=== PATIENT | female | born 1955 | race Caucasian/White ===

== ENCOUNTER 2017-07-28 06:24 | Inpatient (IN) | payer BC, OTHER ==
[2017-06-22 15:08] VITALS: BMI 41.0
--- NOTE | 2017-06-22 15:35 | PAT Medication Instructions ---
Service Date Jun 22, 2017. Current Home Medication List Albuterol Hfa (Ventolin Hfa), 2-4 PUFFS INH UD PRN for asthma Celecoxib (CeleBREX), 200 MG PO QAM Fluticasone Prop/Salmeterol (Advair Diskus 250/50 60 Dose), 1 PUFF INH UD PRN for asthma Fluticasone Propionate (Nasal) (Flonase Allergy Relief), 1 DOSE MATT UD PRN for allergies Hctz/Losartan (Hyzaar 12.5MG/50MG), 1 TAB PO BID Ibuprofen (Motrin), 600 MG PO qday PRN for Pain Medication Instructions For Your Scheduled Surgery - Hold the following medications 24 hours prior to surgery: Hctz/Losartan (Hyzaar 12.5MG/50MG), 1 TAB PO BID - Hold the following medications the morning of surgery: Ibuprofen (Motrin), 600 MG PO qday PRN for Pain (otherwise okay to continue per surgeon) Celecoxib (CeleBREX), 200 MG PO QAM (otherwise okay to continue per surgeon) - Take the following medications the morning of surgery: Albuterol Hfa (Ventolin Hfa), 2-4 PUFFS INH UD PRN for asthma (use if needed; BRING TO HOSPITAL) Fluticasone Propionate (Nasal) (Flonase Allergy Relief), 1 DOSE MATT UD PRN for allergies Fluticasone Prop/Salmeterol (Advair Diskus 250/50 60 Dose), 1 PUFF INH UD PRN for asthma - Take the following medications as scheduled the night before surgery: Albuterol Hfa (Ventolin Hfa), 2-4 PUFFS INH UD PRN for asthma Fluticasone Propionate (Nasal) (Flonase Allergy Relief), 1 DOSE MATT UD PRN for allergies Fluticasone Prop/Salmeterol (Advair Diskus 250/50 60 Dose), 1 PUFF INH UD PRN for asthma Nothing to eat or drink after midnight If you have any questions please call us at [phone] or [phone] or [phone]
[2017-06-22 16:31] LABS: BASO % 0.6 %; BASO ABS # 0.04 K/uL (0-0.2); COMPLETE YES; EOS % 3.8 %; HEMATOCRIT 43.2 % (37-47); IG% 0.5 %; LYMPH % 18.8 %; LYMPH ABS # 1.24 K/uL (1.2-3.4); MEAN CELL VOLUME 95.6 fL (80-100); MEAN CORPUSCULAR HEMOGLOBIN 32.5 pg (25-34); MEAN PLATELET VOLUME 11.3 fL (7.4-10.4); NEUT % 61.3 %; PLATELET COUNT 223 K/uL (130-400); RED BLOOD COUNT 4.52 M/uL (4.2-5.4); WHITE BLOOD COUNT 6.61 K/uL (4.8-10.8)
--- NOTE | 2017-06-22 16:37 | DIAGNOSTIC IMAGING REPORT ---
CHEST PREADMISSION(PA/LAT) CLINICAL HISTORY: PAT preoperative evaluation COMPARISON STUDY: No previous studies for comparison. FINDINGS: The bones soft tissues and hemidiaphragms are normal. The cardiomediastinal silhouette is normal. The lungs are clear. The pulmonary vasculature is normal. IMPRESSION: Negative chest. The above report was generated using voice recognition software. It may contain grammatical, syntax or spelling errors. Electronically signed by: Nikita Brown M.D. 06/22/2017 4:35 PM Dictated Date/Time: 06/22/2017 4:35 PM
[2017-06-22 16:38] LABS: URINE APPEARANCE CLEAR (CLEAR); URINE BILIRUBIN NEG (NEG); URINE COLOR DK YELLOW; URINE EPITHELIAL CELL AUTO >30 /lpf (0-5); URINE NITRITE NEG (NEG); URINE PH 6.5 (4.5-7.5); URINE SPECIFIC GRAVITY 1.021 (1.000-1.030); UROBILINOGEN NEG (NEG); ZZUR CULT IF INDIC CLEAN CATCH YES
[2017-06-22 16:43] LABS: PARTIAL THROMBOPLASTIN RATIO 1.1; PROTHROMBIN TIME (PATIENT) 10.5 SECONDS (9.0-12.0)
[2017-06-22 16:45] LABS: BUN/CREATININE RATIO 13.9 (10-20); CALCIUM 9.4 mg/dl (8.5-10.1); CREATININE 1.2 mg/dl (0.60-1.20); POTASSIUM 3.5 mmol/L (3.5-5.1)
[2017-06-22 16:48] LABS: MANUAL MICROSCOPIC REQUIRED? NO; REVIEW REQ? NO
[2017-06-23 07:51] LABS: ESTIMATED AVERAGE GLUCOSE 105 mg/dl; HA1C FLAG Normal (Normal)
--- NOTE | 2017-07-27 18:52 | HISTORY & PHYSICAL EXAMINATION ---
DATE OF ADMISSION: 07/28/2017 CHIEF COMPLAINT: Chronic right knee pain. HISTORY OF PRESENT ILLNESS: This is a 62-year-old female patient of Dr. Avila'rashid complaining of chronic right knee pain, longstanding, now progressively getting worse. The patient has been diagnosed with end-stage osteoarthritis per clinical and radiographic exams. The patient has failed conservative treatment including intraarticular injections and anti-inflammatories. The patient has increased pain with weightbearing activities and her pain does interfere with her activities of daily living. PAST MEDICAL HISTORY: Hypertension, asthma, osteoarthritis, obesity. SOCIAL HISTORY: Nonsmoker, nondrinker. PAST SURGICAL HISTORY: Hysterectomy, gallbladder, tonsillectomy and stomach surgery. FAMILY HISTORY: Noncontributory. REVIEW OF SYSTEMS: Chronic right knee pain, otherwise denies any shortness of breath, chest pain, nausea, vomiting or any other joint complaints. MEDICATIONS: Include: 1. Celebrex 200 mg daily. 2. Ventolin HFA 90 mcg 2 puffs every 4-6 hours p.r.n. 3. Advair Diskus 250/50 one puff b.i.d. 4. Flonase allergy 50 mcg actuation 2 sprays in each nostril daily. 5. Hyzaar 50/12.5 daily. ALLERGIES: INCLUDE NAPROXEN, AMLODIPINE, AND ADHESIVE TAPES. PHYSICAL EXAMINATION: GENERAL: Well-developed, well-nourished 62-year-old female in no acute distress. She is alert and oriented x3 and pleasant. HEENT: Normocephalic, atraumatic. Extraocular motions are intact. Pupils are equal and reactive to light. HEART: Regular rate and rhythm, no murmurs appreciated. LUNGS: Clear. ABDOMEN: Soft and nontender, bowel sounds are present. EXTREMITIES: Right knee reveals crepitation with passive range of motion. Range of motion of 0-130 with a neutral alignment. She has a mild effusion. Her ligaments are stable. She has 5/5 strength. NEUROLOGIC: Neurovascularly, she is intact in her right lower extremity. DIAGNOSES: Right knee end-stage osteoarthritis, hypertension, asthma, osteoarthritis and obesity. PLAN: The patient was advised of her diagnoses. Indications, risks, benefits, and postop course have all been reviewed. The patient wishes to proceed with a right total knee arthroplasty. Necessary consent forms, preoperative testing and clearances will be obtained.
[~2017-07-28] VITALS: Ht 170.2 cm; Wt 120.7 kg
[2017-07-28] VITALS (10 sets, daily range): BP systolic 129–157; BP diastolic 82–109; PULSE 67–90; TEMP 36.5–36.9; O2SAT 93–98; Ht 170.2 cm; Wt 120.7 kg
[~2017-07-28 06:24] MED LIST: ACETAMINOPHEN 500 MG TAB PO SCH; ADVIN25/60 INH; CEFAZOLIN 3000 MG/65 ML D5W 65 ML IV SCH; CLB/200 PO; CeleBREX 200 MG CAP PO SCH; DEXAMETHASONE 4 MG TAB PO SCH; FAMOTIDINE 20 MG TAB PO SCH; FLUT0.15 NAE; GABAPENTIN 300 MG CAP PO SCH; HYZ/50125 PO; IBUP-1450 PO; LACTATED RINGER'S 1000ML 1,000 ML IV SCH; LACTATED RINGER'S 1000ML 500 ML IV ONE; METOCLOPRAMIDE HCL 10 MG TAB PO SCH; ROPIVACAINE 5MG/ML 30 ML 150 MG, BUPIVACAINE/EPINEPHR 0.5% MPF 30 ML, KETOROLAC TROMETH... INFIL SCH; VNTHFA/IN INH
[2017-07-28] MEDS ORDERED: ROPIVACAINE 0.5% 5 MG/ML 30 ML VIAL ONE (06:32)
[2017-07-28] MEDS ORDERED: BUPIVACAINE 0.5 % 5 MG/1 ML PF 10ML VIAL ONE (06:32)
[2017-07-28] MEDS ORDERED: MIDAZOLAM HCL 1 MG/ML 2ML VIAL ONE ×2 (06:55→10:15)
[2017-07-28] MEDS ORDERED: FENTANYL CITRATE INJ 50 MCG/1 ML 2 ML VIAL ONE (06:55)
[2017-07-28] MEDS ORDERED: ORTHO JOINT ANESTHETIC ONE (07:00)
[2017-07-28] MEDS ORDERED: BACITRACIN 50000 UNIT VIAL ONE (07:00)
[2017-07-28] MEDS ORDERED: POVIDONE-IODINE OP SOLN 30 ML BTL ONE (07:00)
[2017-07-28] MEDS ORDERED: OXYC-57 PO (07:03)
--- NOTE | 2017-07-28 07:19 | History & Physical Bridge Note ---
H&P Re-Evaluation Bridge Note: I have examined the patient, reviewed the History & Physical and in the interval since the performance of the History & Physical I have noted the following changes of clinical significance: No changes noted
[2017-07-28] MEDS: TRANEXAMIC ACID INJ 1,000 MG in SODIUM CHLORIDE 0.9% 100ML 100 ML IV SCH ×2 (09:07→12:46)
[2017-07-28] MEDS ORDERED: PROPOFOL IV EMULSION 10 MG/ML 20 ML VIAL IV ONE (09:35)
[2017-07-28] MEDS ORDERED: HYDROmorphone INJ 2 MG/ML SYR/VIAL IV PRN (10:00)
[2017-07-28] MEDS ORDERED: PHENYLEPHRINE 100MCG/ML 5ML SYR IV PRN (10:00)
[2017-07-28] MEDS ORDERED: ATROPINE SULFATE 0.1 MG/ML 5ML SYR IV PRN (10:00)
[2017-07-28] MEDS ORDERED: EpHEDrine SULFATE INJ 50 MG/ML AMP IV PRN (10:00)
[2017-07-28] MEDS ORDERED: ONDANSETRON INJ 2 MG/ML 2 ML VIAL IV PRN (10:00)
--- NOTE | 2017-07-28 11:09 | [facility] Post Operative Brief Note ---
Immediate Operative Summary Operative Date Jul 28, 2017. Pre-Operative Diagnosis Right Knee End Stage Osteoarthritis Post-Operative Diagnosis Right Knee End Stage Osteoarthritis Procedure(s) Performed Right Total Knee Arthroplasty Surgeon Dr. Gabe Avila Transitions Manager Rn Surgeon(s) Marshall Betancourt PA-C Estimated Blood Loss 5ML Findings grade 4 medial and patellofemoral Specimens Permanent: A. Right Knee Bone and Tissue Drains 2 hemovac Anesthesia spinal orthomix regional block Complication(s) None Disposition Recovery Room / PACU
[2017-07-28] MEDS ORDERED: MoRPHine SULFATE 4 MG/ML 1 ML CARP\\VIAL IV PRN (11:30)
[2017-07-28] MEDS ORDERED: MoRPHine SULFATE 2 MG/ML CARP IV PRN (11:30)
[2017-07-28] MEDS ORDERED: MAGNESIUM HYDROXIDE SUSP 30 ML UDC PO PRN (11:30)
[2017-07-28] MEDS ORDERED: BISACODYL 10 MG SUPP PR PRN (11:30)
[2017-07-28] MEDS ORDERED: ALBUTEROL HFA 8 GM INHALER INH PRN (11:30)
[2017-07-28] MEDS ORDERED: FLUTICASONE PROPIONATE NA SPR 16 GM BTL NAE PRN (11:30)
[2017-07-28] MEDS ORDERED: FLUTICASONE/SALMETEROL 250/50 (ADVAIR) 14 PUFF/1 INHALER INH PRN (11:30)
[2017-07-28] MEDS ORDERED: ALUMINUM/MAGNESIUM/SIMETH (MAALOX MAX) 30 ML UDC PO PRN (11:30)
--- NOTE | 2017-07-28 11:58 | DIAGNOSTIC IMAGING REPORT ---
RIGHT KNEE 1 OR 2 VIEWS ROUTINE CLINICAL HISTORY: 62 years-old Female presenting with postop right knee replacement. TECHNIQUE: Frontal and lateral views of the right knee were obtained. COMPARISON: None. FINDINGS: Postsurgical changes of total right knee replacement with patellar resurfacing. Expected soft tissue emphysema. Overlying skin richard and a surgical drain in place. No acute fracture. No hardware complication. No malalignment. IMPRESSION: Expected postsurgical changes status post total right knee arthroplasty with patellar resurfacing. Electronically signed by: Gumaro Patel M.D. 07/28/2017 11:56 AM Dictated Date/Time: 07/28/2017 11:56 AM
--- NOTE | 2017-07-28 13:17 | Anesthesiology Progress Note ---
Anesthesia Post Op Note Date & Time Jul 28, 2017 at 13:17 Vital Signs Pain Intensity: 0 Vital Signs Past 12 Hours Date Time Temp Pulse Resp B/P (MAP) Pulse Ox O2 Delivery O2 Flow Rate FiO2 07/28/17 12:44 150/103 (119) 07/28/17 12:38 70 20 157/109 (125) 98 Nasal Cannula 2.0 07/28/17 11:46 66 14 131/90 96 07/28/17 11:46 67 14 07/28/17 11:45 68 14 131/90 97 Nasal Cannula 2 07/28/17 11:41 67 13 95 07/28/17 11:41 67 13 07/28/17 11:40 141/85 07/28/17 11:40 36.5 71 12 123/72 95 Nasal Cannula 2 07/28/17 11:36 70 14 92 07/28/17 11:36 70 14 07/28/17 11:35 68 13 142/86 93 07/28/17 11:35 68 13 07/28/17 11:35 68 13 142/86 93 07/28/17 11:35 68 13 07/28/17 11:30 71 13 07/28/17 11:30 71 13 132/84 95 07/28/17 11:30 71 13 07/28/17 11:30 71 13 132/84 95 07/28/17 11:27 123/77 07/28/17 11:27 123/77 07/28/17 11:25 73 12 123/72 99 Oxymask 10 07/28/17 11:25 72 14 96 07/28/17 11:25 72 14 07/28/17 11:25 72 14 07/28/17 11:25 72 14 96 07/28/17 11:20 72 14 98 07/28/17 11:20 71 14 07/28/17 11:20 72 14 98 07/28/17 11:20 71 14 07/28/17 11:16 117/72 07/28/17 11:16 117/72 07/28/17 11:15 63 18 98 07/28/17 11:15 70 18 07/28/17 11:15 63 18 98 07/28/17 11:15 36.8 71 16 117/72 99 Oxymask 10 07/28/17 11:15 70 18 07/28/17 06:40 36.9 90 20 131/102 97 Room Air 133/102 Notes Mental Status: alert / awake / arousable, participated in evaluation Pt Amnestic to Procedure: Yes Nausea / Vomiting: adequately controlled Pain: adequately controlled Airway Patency, RR, SpO2: stable & adequate BP & HR: stable & adequate Hydration State: stable & adequate Anesthetic Complications: no major complications apparent
[2017-07-28] MEDS: D5W AND 1/2NSS + 20MEQ KCL 1,000 ML IV SCH ×2 (13:39→22:22)
--- NOTE | 2017-07-28 13:44 | Medical Consult ---
Consultation Date of Consultation: Jul 28, 2017. Attending Physician: Gabe Avila M.D. Reason for Consultation: Medical management History of Present Illness This is a 62 yo F with PMHx of hypertension, asthma, osteoarthritis, morbid obesity with BMI=41.7 who is now s/p right TKA by Dr. Avila on 07/28/17. The patients and mother were present during my interview. The patient feels well, has no pain, and states her right foot feels like pins and needles still. She can move her toes, foot and has sensation to light touch but it isn' t back to baseline. She moved her bowels yesterday and reports they are normally loose. The patient denies any other acute complaints. Her plans for discharge are to go home with home health PT/OT. An appointment has been set up for Wednesday. Past Medical/Surgical History Hypertension Asthma Osteoarthritis Morbid obesity, BMI= 41.7 Surgical Hx Total abdominal hysterectomy Cholecystectomy tonsillectomy Hiatal hernia repair 2011 Gastric banding 2011 R TKA Social History Smoking Status: Never Smoker Allergies Coded Allergies: Naproxen (Verified Allergy, Severe, couldn't breathe, 07/28/17) Adhesives (Verified Allergy, Unknown, rash, 07/28/17) Amlodipine (Verified Allergy, Unknown, leg swelling, 07/28/17) Gluten (Verified Allergy, Unknown, GI reactions, 07/28/17) Current Inpatient Medications Current Inpatient Medications Medications (Trade) Dose Ordered Sig/Vikas Route Start Time Stop Time Status Last Admin Dose Admin Lactated Ringer's 1,000 ml @ 15 mls/hr Q24H IV 07/28/17 06:00 07/29/17 05:59 Cefazolin Sodium 65 ml @ 100 mls/hr PREOP IV 07/28/17 06:00 07/28/17 18:00 07/28/17 09:27 100 MLS/HR Acetaminophen (Tylenol Tab) 1,000 mg PREOP PO 07/28/17 06:00 07/28/17 18:00 07/28/17 07:09 1,000 MG Celecoxib (CeleBREX CAP) 200 mg PREOP PO 07/28/17 06:00 07/28/17 18:00 07/28/17 07:05 200 MG Dexamethasone (Decadron Tab) 8 mg PREOP PO 07/28/17 06:00 07/28/17 18:00 07/28/17 07:06 8 MG Famotidine (Pepcid Tab) 20 mg PREOP PO 07/28/17 06:00 07/28/17 18:00 07/28/17 07:09 20 MG Gabapentin (Neurontin Cap) 600 mg PREOP PO 07/28/17 06:00 07/28/17 18:00 07/28/17 07:08 600 MG Metoclopramide HCl (Reglan Tab) 10 mg PREOP PO 07/28/17 06:00 07/28/17 18:00 07/28/17 07:09 10 MG Tranexamic Acid 1000 mg/Sodium Chloride 110 ml @ 660 mls/hr TODAY@06,0630 IV 07/28/17 06:00 07/28/17 18:00 07/28/17 09:07 660 MLS/HR Lactated Ringer's 1,000 ml @ 60 mls/hr [id number] IV 07/28/17 06:00 07/28/17 22:39 Hydromorphone HCl (Dilaudid Inj) 0.5 mg Q5M PRN IV 07/28/17 10:00 07/28/17 15:00 Ondansetron HCl (Zofran Inj) 4 mg ONE PRN IV 07/28/17 10:00 07/28/17 15:00 Ephedrine Sulfate (EpHEDrine SULFATE INJ) 5 mg Q5M PRN IV 07/28/17 10:00 07/28/17 15:00 Atropine Sulfate (Atropine Sulfate 0.1MG/Ml Inj) 0.5 mg Q1M PRN IV 07/28/17 10:00 07/28/17 15:00 Phenylephrine HCl (Kaveh-Synephrine 500MCG/5ML Syr) 100 mcg Q5M PRN IV 07/28/17 10:00 07/28/17 15:00 Albuterol (Ventolin Hfa Inhaler) 2 puffs UD PRN INH 07/28/17 11:30 08/27/17 11:29 Salmeterol Xinafoate/ Fluticasone (Advair Diskus 250/50 Inh) 1 puff UD PRN INH 07/28/17 11:30 08/27/17 11:29 Fluticasone Propionate (Flonase Nasal [place]) 1 sprays UD PRN MATT 07/28/17 11:30 08/27/17 11:29 HCTZ/Losartan Potassium (Hyzaar 50-12.5 Tab) 1 tab BID PO 07/28/17 21:00 08/27/17 20:59 Morphine Sulfate (MoRPHine SULFATE INJ) 2 mg Q4HWA PRN IV 07/28/17 11:30 08/11/17 11:29 Morphine Sulfate (MoRPHine SULFATE INJ) 4 mg Q4HWA PRN IV 07/28/17 11:30 08/11/17 11:29 Potassium Chloride/Dextrose/ Sod Cl 1,000 ml @ 100 mls/hr Q10H IV 07/28/17 13:00 07/29/17 11:15 Cefazolin Sodium 2000 mg/Dextrose 60 ml @ 100 mls/hr Q8H IV 07/28/17 18:00 07/29/17 02:35 Celecoxib (CeleBREX CAP) 200 mg BID PO 07/28/17 21:00 08/27/17 20:59 Oxycodone HCl (Roxicodone Immediate Rel Tab) 1 TABLET FOR PAIN RATING... Q4H PRN PO 07/28/17 11:30 08/11/17 11:29 Oxycodone HCl (Oxycontin Tab) 10 mg Q12 PO 07/28/17 21:00 08/11/17 20:59 Acetaminophen (Tylenol Tab) 1,000 mg Q8H PO 07/28/17 14:00 08/27/17 11:29 Magnesium Hydroxide (Milk Of Magnesia Susp) 30 ml Q6H PRN PO 07/28/17 11:30 08/27/17 11:29 Bisacodyl (Dulcolax Supp) 10 mg DAILY PRN [place] 07/28/17 11:30 08/27/17 11:29 Senna (Senokot Tab) 17.2 mg HS PO 07/28/17 21:00 08/27/17 20:59 Docusate Sodium (coLACE CAP) 100 mg BID PO 07/28/17 21:00 08/27/17 20:59 Al Hydrox/Mg Hydrox/Simethicone (Maalox Max Susp) 15 ml Q4H PRN PO 07/28/17 11:30 08/27/17 11:29 Multivitamins (Multivitamin Tab) 1 tab QAM PO 07/29/17 09:00 08/28/17 08:59 Ferrous Gluconate (Ferrous Gluconate Tab) 324 mg TIDM PO 07/28/17 12:30 08/27/17 12:29 Pantoprazole Sodium (Protonix Tab) 40 mg QAM PO 07/29/17 09:00 08/28/17 08:59 Aspirin (Ecotrin Tab) 81 mg BID PO 07/28/17 21:00 08/27/17 20:59 Review of Systems Constitutional: No fever, No chills, No sweats, No fatigue Eyes: No problem reported ENT: No sore throat, No trouble swallowing Respiratory: No cough, No shortness of breath Cardiovascular: No chest pain, No palpitations Abdomen: No pain, No nausea, No vomiting, No diarrhea Neurologic: + numbness/tingling (RLE), No weakness Integumentary: No rash, No itch Physical Exam Date Time Temp Pulse Resp B/P (MAP) Pulse Ox O2 Delivery O2 Flow Rate FiO2 07/28/17 13:00 76 19 147/91 (109) 98 Nasal Cannula 2.0 07/28/17 12:44 150/103 (119) 07/28/17 12:38 70 20 157/109 (125) 98 Nasal Cannula 2.0 07/28/17 11:46 66 14 131/90 96 07/28/17 11:46 67 14 07/28/17 11:45 68 14 131/90 97 Nasal Cannula 2 07/28/17 11:41 67 13 95 07/28/17 11:41 67 13 07/28/17 11:40 141/85 07/28/17 11:40 36.5 71 12 123/72 95 Nasal Cannula 2 07/28/17 11:36 70 14 92 07/28/17 11:36 70 14 07/28/17 11:35 68 13 142/86 93 07/28/17 11:35 68 13 07/28/17 11:35 68 13 142/86 93 07/28/17 11:35 68 13 07/28/17 11:30 71 13 07/28/17 11:30 71 13 132/84 95 07/28/17 11:30 71 13 07/28/17 11:30 71 13 132/84 95 07/28/17 11:27 123/77 07/28/17 11:27 123/77 07/28/17 11:25 73 12 123/72 99 Oxymask 10 07/28/17 11:25 72 14 96 07/28/17 11:25 72 14 07/28/17 11:25 72 14 07/28/17 11:25 72 14 96 07/28/17 11:20 72 14 98 07/28/17 11:20 71 14 07/28/17 11:20 72 14 98 07/28/17 11:20 71 14 07/28/17 11:16 117/72 07/28/17 11:16 117/72 07/28/17 11:15 63 18 98 07/28/17 11:15 70 18 07/28/17 11:15 63 18 98 07/28/17 11:15 36.8 71 16 117/72 99 Oxymask 10 07/28/17 11:15 70 18 07/28/17 06:40 36.9 90 20 131/102 97 Room Air 133/102 General Appearance: WD/WN, no apparent distress Head: normocephalic, atraumatic Eyes: PERRL, EOMI, + pertinent finding (MMM) ENT: hearing grossly normal, pharynx normal Neck: supple, no JVD Respiratory/Chest: chest non-tender, no respiratory distress, no accessory muscle use Cardiovascular: regular rate, rhythm, no murmur, normal peripheral pulses Abdomen/GI: normal bowel sounds, non tender, soft Back: normal inspection, no muscle spasm Extremities/Musculoskelatal: normal inspection, no calf tenderness, no pedal edema, + pertinent finding (R leg wrapped in JOSEPH, ice pack over knee, good peripheral pulses) Neurologic/Psych: alert, normal mood/affect, oriented x 3 Skin: normal color, warm/dry Assessment & Plan This is a 62 yo F with PMHx of hypertension, asthma, osteoarthritis, morbid obesity with BMI=41.7 who is now s/p right TKA by Dr. Avila on 07/28/17. S/p R TKA by Dr. Avila on 07/28/17 - Pain management and bowel regimen per primary service - tylenol around the clock, oxycodone 5 -10 mg Q4H prn. - Received dose of celebrex prior to surgery along with dexamethasone - Cont DVT ppx with aspirin 81 mg BID - PT/OT - Plan for home with home health services, CM to assist Hypertension - BP elevated into the 150s/90s preoperatively per nursing report. She was instructed to hold Hyzaar last evening and this morning, restart this medication tonight at normal home dosing. If BP remains elevated after this can consider hydralazine or lopressor IV. Asthma - Uses spiriva occasionally and albuterol. Pt has been eating a gluten free diet and believes her breathing has been better since last October when she initiated this. Pt has not needed these meds in several months Obesity, morbid BMI 41.7 - Diet and exercise should be encouraged prior to discharge. DVT ppx: Aspirin 81 mg BID, teds, scds on nonaffected leg CODE STATUS: FULL CODE Disposition: From home, discharge per primary team Thank you for involving us in the care of Mrs. Mishra. Please do not hesitate to call with questions or concerns. We will follow along.
[2017-07-28] MEDS: ACETAMINOPHEN 500 MG TAB PO SCH ×2 (13:49→22:22)
[2017-07-28] MEDS: FERROUS GLUCONATE 324 MG TAB PO SCH ×2 (13:49→17:56)
[2017-07-28] MEDS: OXYCODONE HCL IR 5 MG TAB (IMMEDIATE RELEASE) PO PRN (15:58)
--- NOTE | 2017-07-28 17:25 | OPERATIVE REPORT ---
DATE OF OPERATION: 07/28/2017 INDICATION FOR PROCEDURE: The patient is a 62-year-old female who presents with chronic progressive osteoarthritis in her right knee. Radiographs demonstrate [id number] in the medial compartment. She also has advanced patellofemoral DJD. PREOPERATIVE DIAGNOSIS: End-stage osteoarthritis, right knee. POSTOPERATIVE DIAGNOSIS: Same. PROCEDURE: Right total knee arthroplasty. SURGEON: Dr. Avila. INSTITUTIONAL RESEARCH COORDINATOR: KATE Wood. ANESTHESIA: Spinal IV sedation, regional block and Orthomix. OPERATIVE PROCEDURE: The patient was taken to the operating room and anesthetized under anesthesia as dictated. She was placed supine on the operating room table. A foot roll was placed to flex her knee at 90 degrees as needed during the procedure. A pneumatic tourniquet was placed on right upper thigh. Right lower extremity was prepped and draped in usual sterile fashion. Left leg was elevated, exsanguinated with Esmarch bandage. Pneumatic tourniquet was raised to 325 mmHg due to some obesity of the thigh. An anterior incision made across right knee. Skin was incised sharply. Subcutaneous flaps were elevated. An incision was made through medial retinaculum and extended up in the mid third of the quadriceps tendon and extended down to the medial tibial tubercle. Intraarticular findings demonstrate she has grade 4 DJD in the medial compartment, a grade 4 DJD in the medial patellofemoral joint with chronic medial meniscus tear. I used the [employer] 2.0 total knee arthroplasty system using [employer] MRI templating. The patient was templated for a 5 femur and 4 tibia. To expose the knee, the infrapatellar fat pad over the anterior femur was resected and lateral synovial bands were released. The cruciate ligaments and meniscal remnants were resected. The custom femoral cutting block was pinned in position and the distal femoral cut was made. The 5-in-1 cutting block was placed. Anterior, posterior and chamfer cuts were made. The knee was extended and a subperiosteal peel lateral release was performed around the patella. Patella width was measured and width was reproduced using a freehand cut technique and a 35 mm patellar component. Drill holes for the patella were made. The excess lateral facet was beveled off to prevent any impingement. The tibia was then exposed. The custom tibial cutting block was pinned in position. The proximal tibial cut was made. We used the laminar patrol man to assess ligamentous balance. Ligaments were balanced in extension and flexion. The tibia was then re-exposed. The 4 tibial trials were externally rotated in line with the tibial tubercle, pinned in position and the punch for the stem was used. The 5 femoral trial was centered, inserted and then the notch cutting devices were used, the collet was placed, and 11 poly trial insert gave balanced ligaments through full range of motion, patella tracked centrally. Trials were removed. The Orthomix anesthesia cocktail was injected per protocol. The knee was copiously irrigated with antibiotic solution with bacitracin. The final components were cemented with Simplex G cement. Final components were the 5 Oxinium posterior stabilized [employer] 2.0 femur, the 4 primary tibial baseplate, the 11 mm posterior stabilized high flex poly insert and a 35 mm patella. All cement cured Betadine soak was used. The knee was then copiously with antibiotic solution and bacitracin. Two drains were brought out laterally. Then the quadriceps tendon and medial retinaculum were closed with interrupted [id number] #1 Vicryl sutures. The knee was taken through full range of motion and repair was secure. Subcutaneous tissues were closed with interrupted 2-0 Vicryl sutures. Skin was closed with richard. Sterile dressings applied and the patient tolerated the procedure well. We did closure over 2 Hemovac drains. KATE Wood was my first aid officer and he functioned as first aid officer for the entire procedure including soft tissue retraction, instrument management, leg positioning, and performed the fascial, subcutaneous, and skin closure and will participate in the postoperative care of the patient. I attest to the content of the Intraoperative Record and any orders documented therein. Any exception s are noted below.
[2017-07-28] MEDS: CEFAZOLIN IV 2,000 MG in DEXTROSE 5% 50ML 50 ML IV SCH (18:01)
[2017-07-28] MEDS: OXYCODONE HCL 10 MG TABCR (OXYCONTIN) PO SCH (22:19)
[2017-07-28] MEDS: DOCUSATE SODIUM 100 MG CAP PO SCH (22:20)
[2017-07-28] MEDS: ASPIRIN 81 MG ECTAB PO SCH (22:20)
[2017-07-28] MEDS: LOSARTAN/HCTZ 50-12.5 EA TAB PO SCH (22:20)
[2017-07-28] MEDS: SENNA 8.6 MG TAB PO SCH (22:22)
[2017-07-28] MEDS: CeleBREX 200 MG CAP PO SCH (22:23)
[2017-07-29] MEDS: CEFAZOLIN IV 2,000 MG in DEXTROSE 5% 50ML 50 ML IV SCH (01:36)
[2017-07-29 03:07] VITALS: BP 137/86; PULSE 58; TEMP 36.6; O2SAT 96
[2017-07-29] MEDS: OXYCODONE HCL IR 5 MG TAB (IMMEDIATE RELEASE) PO PRN ×3 (06:12→18:55)
[2017-07-29] MEDS: ACETAMINOPHEN 500 MG TAB PO SCH ×3 (06:13→21:44)
[2017-07-29 06:15] LABS: HEMATOCRIT 37.9 % (37-47); MEAN CELL VOLUME 92.4 fL (80-100); MEAN CORPUSCULAR HEMOGLOBIN 31.5 pg (25-34); MEAN PLATELET VOLUME 11.5 fL (7.4-10.4); PLATELET COUNT 205 K/uL (130-400); WHITE BLOOD COUNT 15.32 K/uL (4.8-10.8)
[2017-07-29 06:43] LABS: BUN/CREATININE RATIO 13.9 (10-20); CALCIUM 8.8 mg/dl (8.5-10.1); CREATININE 1.1 mg/dl (0.60-1.20); POTASSIUM 3.8 mmol/L (3.5-5.1)
[2017-07-29 07:34] VITALS: BP 122/76; PULSE 59; TEMP 36.5; O2SAT 97
--- NOTE | 2017-07-29 08:21 | Orthopedic Progress Note ---
Orthopedic Progress Note Date of Service Jul 29, 2017. Subjective Post OP Day: 1 Reports: feeling well, pain controlled w PO medications, Denies: complaints, chest pain, SOB, nausea / vomiting, light headedness, calf pain Objective calves soft nontender, N/V intact, capillary refill less than 2 sec., dressing C /D/I, A&O x3, toes mobile Date Time Temp Pulse Resp B/P (MAP) Pulse Ox O2 Delivery O2 Flow Rate FiO2 07/29/17 07:34 36.5 59 17 122/76 (91) 97 Room Air 07/29/17 07:10 Room Air 07/29/17 03:07 36.6 58 20 137/86 (103) 96 Room Air 07/28/17 23:50 Room Air 07/28/17 23:14 36.8 82 18 140/82 (101) 93 Room Air 07/28/17 19:03 36.6 80 16 129/84 (99) 95 Room Air 07/28/17 16:47 96 Room Air 07/28/17 15:50 Room Air 07/28/17 15:10 36.5 67 16 133/89 (104) 97 Nasal Cannula 2.0 07/28/17 14:00 69 20 141/91 (108) 98 Nasal Cannula 2.0 07/28/17 13:00 76 19 147/91 (109) 98 Nasal Cannula 2.0 07/28/17 12:44 150/103 (119) 07/28/17 12:38 70 20 157/109 (125) 98 Nasal Cannula 2.0 07/28/17 12:00 95 Nasal Cannula 2.0 07/28/17 12:00 95 Nasal Cannula 2.0 07/28/17 11:46 66 14 131/90 96 07/28/17 11:46 67 14 07/28/17 11:45 68 14 131/90 97 Nasal Cannula 2 07/28/17 11:41 67 13 95 07/28/17 11:41 67 13 07/28/17 11:40 141/85 07/28/17 11:40 36.5 71 12 123/72 95 Nasal Cannula 2 07/28/17 11:36 70 14 92 07/28/17 11:36 70 14 07/28/17 11:35 68 13 142/86 93 07/28/17 11:35 68 13 07/28/17 11:35 68 13 142/86 93 07/28/17 11:35 68 13 07/28/17 11:30 71 13 07/28/17 11:30 71 13 132/84 95 07/28/17 11:30 71 13 07/28/17 11:30 71 13 132/84 95 07/28/17 11:27 123/77 07/28/17 11:27 123/77 07/28/17 11:25 73 12 123/72 99 Oxymask 10 07/28/17 11:25 72 14 96 07/28/17 11:25 72 14 07/28/17 11:25 72 14 07/28/17 11:25 72 14 96 07/28/17 11:20 72 14 98 07/28/17 11:20 71 14 07/28/17 11:20 72 14 98 07/28/17 11:20 71 14 07/28/17 11:16 117/72 07/28/17 11:16 117/72 07/28/17 11:15 63 18 98 07/28/17 11:15 70 18 07/28/17 11:15 63 18 98 07/28/17 11:15 36.8 71 16 117/72 99 Oxymask 10 07/28/17 11:15 70 18 Laboratory Results 24 Hours: Test 07/29/17 05:39 Hematocrit 37.9 % Hemoglobin 12.9 g/dL Assessment & Plan Assessment: POD #1, Right TKA Plan: PT/ OT DVT proph- ASA D/C planning- Home w HH likely Fri As per medicine Inhouse Planning Pain Management: Celebrex, Oxycontin, Morphine, PO Tylenol, Oxy IR DVT Prophylaxis: TEDs, SCDs, ASA Discharge Planning Discharge Planning: home with home health Pain Management: Celebrex, Oxycontin, PO Tylenol, Oxy IR DVT Prophylaxis: TEDs, ASA Therapy: Physical Therapy, Occupational Therapy
[2017-07-29] MEDS: DOCUSATE SODIUM 100 MG CAP PO SCH ×2 (08:41→20:41)
[2017-07-29] MEDS: LOSARTAN/HCTZ 50-12.5 EA TAB PO SCH ×2 (08:41→20:41)
[2017-07-29] MEDS: CeleBREX 200 MG CAP PO SCH ×2 (08:41→20:41)
[2017-07-29] MEDS: ASPIRIN 81 MG ECTAB PO SCH ×2 (08:41→20:40)
[2017-07-29] MEDS: FERROUS GLUCONATE 324 MG TAB PO SCH ×3 (08:42→18:16)
[2017-07-29] MEDS: OXYCODONE HCL 10 MG TABCR (OXYCONTIN) PO SCH ×2 (08:45→20:38)
[2017-07-29] MEDS: D5W AND 1/2NSS + 20MEQ KCL 1,000 ML IV SCH (09:00)
[2017-07-29] MEDS: PANTOprazole SOD 40 MG TAB PO SCH (09:27)
[2017-07-29] MEDS: MULTIVITAMIN TAB PO SCH (09:27)
--- NOTE | 2017-07-29 11:05 | Anesthesiology Progress Note ---
Anesthesia Post Op Note Date & Time Jul 29, 2017 at 11:04 Vital Signs Pain Intensity: 2.0 Vital Signs Past 12 Hours Date Time Temp Pulse Resp B/P (MAP) Pulse Ox O2 Delivery O2 Flow Rate FiO2 07/29/17 07:34 36.5 59 17 122/76 (91) 97 Room Air 07/29/17 07:10 Room Air 07/29/17 03:07 36.6 58 20 137/86 (103) 96 Room Air 07/28/17 23:50 Room Air 07/28/17 23:14 36.8 82 18 140/82 (101) 93 Room Air Notes Mental Status: alert / awake / arousable, participated in evaluation Pt Amnestic to Procedure: Yes Nausea / Vomiting: adequately controlled Pain: adequately controlled Airway Patency, RR, SpO2: stable & adequate BP & HR: stable & adequate Hydration State: stable & adequate Neuraxial Anesthesia: was administered, sensory block resolved Anesthetic Complications: no major complications apparent
--- NOTE | 2017-07-29 12:33 | Hospitalist Progress Note ---
Hospitalist Progress Note Date of Service Jul 29, 2017. (Courtney Chandler ., KATE-C) Subjective Pt evaluation today including: conversation w/ patient, physical exam, chart review, lab review, review of inpatient medication list Pain: Right knee pain, just finished PT PO Intake: Tolerating PO diet Voiding: no voiding problems Patient reports feeling well. She states that her right knee is a bit sore now as she just finished working with physical therapy. She denies any numbness or tingling now, but she states that sometimes when she sits in the chair with her feet propped up, she gets some tingling in her feet. She did have a bowel movement earlier this morning and is passing gas. She is tolerating a PO diet well and urinating without difficulty. The patient denies fevers, chills, sweats, chest pain, palpitations, claudication, cough, wheezing, shortness of breath, nausea, vomiting, abdominal pain, dysuria, hematuria, urinary retention , paralysis, weakness. Additional Comments: See HPI for pertinent positives and negatives. All other systems reviewed and negative. (Courtney Chandler ., PA-C) Objective Vital Signs Date Time Temp Pulse Resp B/P (MAP) Pulse Ox O2 Delivery O2 Flow Rate FiO2 07/29/17 07:34 36.5 59 17 122/76 (91) 97 Room Air 07/29/17 07:10 Room Air 07/29/17 03:07 36.6 58 20 137/86 (103) 96 Room Air 07/28/17 23:50 Room Air 07/28/17 23:14 36.8 82 18 140/82 (101) 93 Room Air 07/28/17 19:03 36.6 80 16 129/84 (99) 95 Room Air 07/28/17 16:47 96 Room Air 07/28/17 15:50 Room Air 07/28/17 15:10 36.5 67 16 133/89 (104) 97 Nasal Cannula 2.0 07/28/17 14:00 69 20 141/91 (108) 98 Nasal Cannula 2.0 07/28/17 13:00 76 19 147/91 (109) 98 Nasal Cannula 2.0 07/28/17 12:44 150/103 (119) 07/28/17 12:38 70 20 157/109 (125) 98 Nasal Cannula 2.0 (Courtney Chandler PA-C) Physical Exam Notes: General appearance: +Morbidly obese. Well-developed, well-nourished, no apparent distress Head: Normocephalic, atraumatic Eyes: Normal inspection, PERRL, EOMI ENT: Normal ENT inspection, hearing grossly normal, pharynx normal Neck: Supple, no JVD, trachea midline Respiratory/Chest: Lungs clear to auscultation, normal breath sounds, no respiratory distress Cardiovascular: Regular rate & rhythm, no gallop, no murmur Abdomen/GI: Normal bowel sounds, non-tender, soft Extremities/Musculoskeletal: +RLE wrapped in joseph bandage. Normal inspection, no calf tenderness, no pedal edema Neurological/Psych: Alert, normal mood/affect, oriented x 3 Skin: Normal color, warm/dry, no rash (Courtney Chandler, KATE-C) Laboratory Results Last 24 Hours Test 07/29/17 05:39 White Blood Count 15.32 K/uL Red Blood Count 4.10 M/uL Hemoglobin 12.9 g/dL Hematocrit 37.9 % Mean Corpuscular Volume 92.4 fL Mean Corpuscular Hemoglobin 31.5 pg Mean Corpuscular Hemoglobin Concent 34.0 g/dl RDW Standard Deviation 43.4 fL RDW Coefficient of Variation 12.9 % Platelet Count 205 K/uL Mean Platelet Volume 11.5 fL Sodium Level 137 mmol/L Potassium Level 3.8 mmol/L Chloride Level 103 mmol/L Carbon Dioxide Level 27 mmol/L Anion Gap 7.0 mmol/L Blood Urea Nitrogen 15 mg/dl Creatinine 1.10 mg/dl Est Creatinine Clear Calc Drug Dose 71.4 ml/min Estimated GFR () 62.3 Estimated GFR (Non- 53.8 BUN/Creatinine Ratio 13.9 Random Glucose 141 mg/dl Calcium Level 8.8 mg/dl (Courtney Chandler, PA-C) Assessment and Plan 62 y/o female with a history of HTN and asthma who presents s/p right TKA with Dr. Noe on 07/28 for medical management. S/p R TKA--POD #1 -Pain management, DVT prophylaxis, and PT/OT as per primary team -AVSS -Pain currently managed with oral medications HTN--stable -BP WNL, last recorded 122/76 -Continue Hyzaar 12.5/50 mg 1 tab PO BID Asthma--stable -Pt has Advair to use prn. She states she has not used since October when she had a cold. She began gluten free diet about 3 years ago which she states has really helped her asthma. She also has prn albuterol inhaler which she uses very sparingly, typically only during acute illness Allergies -Continue Flonase Code Status -Level I, FULL RESUSCITATION STATUS Thank you for this consultation. We will continue to follow. (Courtney Chandler ., APRIL) Reviewed: Pt Seen/Exam by Me (Isabel Evans MD) History Physician Bioinformatics Support Specialist Supervision Note: I interviewed and examined the patient. Discussed with KATE Chandler and agree with findings and plan as documented in the note. Any exceptions or clarifications are listed here: Pt feeling well, pain is controlled now with pain meds. No CP or SOB, is moving bowels. Vitals reviewed NAD, AAOx3 RRR 1/6 XIANG at RUSB, nl S1S2 CTAB no wcr Abd +BS soft NT ND Ext Rt knee in JOSEPH wrap and ice pack in place, no calf tenderness, can move right foot and toes 62 yo female here s/p rt TKA, doing well -agree with plan as above -plan for dc to home tomorrow with home health -BPs controlled and no issues with her asthma Documented By: Isabel Evans (Isabel Evans MD)
[2017-07-29 15:29] VITALS: BP 132/85; PULSE 61; TEMP 36.4; O2SAT 94
[2017-07-29 20:40] VITALS: BP 125/83; PULSE 64
[2017-07-29] MEDS: SENNA 8.6 MG TAB PO SCH (20:40)
[2017-07-29 23:12] VITALS: BP 140/86; PULSE 65; TEMP 36.8; O2SAT 93
[2017-07-30] MEDS: OXYCODONE HCL IR 5 MG TAB (IMMEDIATE RELEASE) PO PRN ×2 (04:17→09:23)
[2017-07-30 06:20] LABS: HEMATOCRIT 33.6 % (37-47); MEAN CELL VOLUME 95.5 fL (80-100); MEAN CORPUSCULAR HEMOGLOBIN 31.8 pg (25-34); MEAN CORPUSCULAR HGB CONC 33.3 g/dl (32-36); MEAN PLATELET VOLUME 11.1 fL (7.4-10.4); PLATELET COUNT 164 K/uL (130-400); RED BLOOD COUNT 3.52 M/uL (4.2-5.4); WHITE BLOOD COUNT 8.35 K/uL (4.8-10.8)
[2017-07-30] MEDS: ACETAMINOPHEN 500 MG TAB PO SCH (06:23)
[2017-07-30 07:07] LABS: BLOOD UREA NITROGEN 14 mg/dl (7-18); CALCIUM 8.6 mg/dl (8.5-10.1); CARBON DIOXIDE 30 mmol/L (21-32); CHLORIDE 106 mmol/L (98-107); GLUCOSE 90 mg/dl (70-99); SODIUM 143 mmol/L (136-145)
[2017-07-30 07:10] VITALS: BP 136/85; PULSE 74; TEMP 36.6; O2SAT 92
[2017-07-30] MEDS: FERROUS GLUCONATE 324 MG TAB PO SCH (07:34)
[2017-07-30] MEDS: DOCUSATE SODIUM 100 MG CAP PO SCH (07:35)
[2017-07-30] MEDS: CeleBREX 200 MG CAP PO SCH (07:35)
[2017-07-30] MEDS: MULTIVITAMIN TAB PO SCH (07:36)
[2017-07-30] MEDS: OXYCODONE HCL 10 MG TABCR (OXYCONTIN) PO SCH (07:36)
[2017-07-30] MEDS: LOSARTAN/HCTZ 50-12.5 EA TAB PO SCH (07:36)
[2017-07-30] MEDS: ASPIRIN 81 MG ECTAB PO SCH (07:36)
[2017-07-30] MEDS: PANTOprazole SOD 40 MG TAB PO SCH (07:37)
--- NOTE | 2017-07-30 08:17 | Orthopedic Progress Note ---
Orthopedic Progress Note Date of Service Jul 30, 2017. Subjective Post OP Day: 2 Reports: feeling well, pain controlled w PO medications, Denies: complaints, chest pain, SOB, nausea / vomiting, light headedness, calf pain Objective calves soft nontender, N/V intact, capillary refill less than 2 sec., dressing C /D/I, A&O x3, toes mobile Silverlon in tact. Date Time Temp Pulse Resp B/P (MAP) Pulse Ox O2 Delivery O2 Flow Rate FiO2 07/30/17 07:41 Room Air 07/30/17 07:10 36.6 74 16 136/85 (102) 92 Room Air 07/29/17 23:15 Room Air 07/29/17 23:12 36.8 65 16 140/86 (104) 93 Room Air 07/29/17 20:40 64 125/83 (97) 07/29/17 15:29 36.4 61 17 132/85 (101) 94 Room Air 07/29/17 15:20 Room Air Laboratory Results 24 Hours: Test 07/30/17 05:57 Hematocrit 33.6 % Hemoglobin 11.2 g/dL Assessment & Plan Assessment: POD #2, Right TKA Plan: PT/ OT DVT proph- ASA D/C planning- Home w HH today. As per medicine Inhouse Planning Pain Management: Celebrex, Oxycontin, Morphine, PO Tylenol, Oxy IR DVT Prophylaxis: TEDs, SCDs, ASA Discharge Planning Discharge Planning: home with home health Pain Management: Celebrex, Oxycontin, PO Tylenol, Oxy IR DVT Prophylaxis: TEDs, ASA Therapy: Physical Therapy, Occupational Therapy
[2017-07-30] MEDS ORDERED: ONDA8TAB12 PO (08:21)
[2017-07-30] MEDS ORDERED: OXYSR10 PO (08:21)
[2017-07-30] MEDS ORDERED: ASPEC81 PO (08:21)
[2017-07-30] MEDS ORDERED: RXC5 PO (08:21)
[2017-07-30] MEDS ORDERED: ACET-24 PO (08:21)
--- NOTE | 2017-07-30 08:22 | Discharge Instructions ---
Discharge Instructions Date of Service Jul 30, 2017. Admission Reason for Admission: Right Knee Degenerative Joint Disease Discharge Discharge Diagnosis / Problem: Right TKA Discharge Goals Goal(s): Improve function Activity Recommendations Activity Limitations: as noted below . Instructions / Follow-Up Instructions / Follow-Up ACTIVITY RECOMMENDATIONS: SELF CARE INSTRUCTIONS AFTER TOTAL KNEE REPLACEMENT A. You may need to continue a physical therapy program after discharge from the hospital. There are several options available to you. Your doctor will assist you in selecting the best one for you. 1. An out-patient facility 2 to 3 times a week for therapy or home therapy. 2. Continue working on all exercises taught to you in the hospital. Your goals should be to increase bending of your knee to 90 degrees and beyond and to fully straighten your knee. B. You may progress at your own pace from walking with a walker or crutches to a cane; then to no assistive devices. C. Make walking a part of your daily routine. Be up as much as comfortable with rest periods throughout the day. Rest with leg elevation is very important. Use the ice wrap frequently for the first 3-4 weeks. D. There are no restrictions on activities. You may ride in a car, shop, participate in coding and reimbursement specialist and all social activities. E. Wear the long elastic stockings (LASHAUN hose) 20 hours a day for 2 weeks after surgery. They can be removed several times a day for laundering and for a bath. F. You may shower, no tub baths until cleared by your doctor. SPECIAL CARE INSTRUCTIONS: VERY IMPORTANT TO READ AND REVIEW A. There are a few signs you need to watch for after you are home. Call [facility] if you notice any of the followin. Increased severe knee pain. Some pain is expected especially when you exercise. 2. Increased swelling in your leg or knee; pain or swelling of the calf muscle in either lower leg. 3. Any fluid drainage from the incision. 4. Shortness of breath or chest pain. B. Please call [facility] at if you have any concerns or questions about your operation or recovery. The doctor or his nurse will return your call promptly. C. You must take antibiotics before dental work, bladder, bowel or other surgery. Your doctor will provide you with a permanent care to carry describing this precaution. IMPORTANT: * REMEMBER TO TAKE ASPIRIN, 81 MG, TWICE DAILY FOR 4 WEEKS UNLESS OTHERWISE DIRECTED. THIS IS YOUR BLOOD THINNER. * HIGH RISK PATIENTS MAY BE PRESCRIBED A STRONGER BLOOD THINNER. THIS WILL BE PROVIDED AT DISCHARGE. * CALL IF INCREASED PAIN, REDNESS, DRAINAGE OR FEVER GREATER THAT 101. * WEAR LASHAUN HOSE 20 HOURS PER DAY FOR 2 WEEKS. * YOU MAY HAVE A LARGE BAND-AID LIKE DRESSING (SILVERON). THIS WILL REMAIN ON YOUR INCISION FOR 7 DAYS, THEN CAN BE REMOVED. IF INCISION IS LEAKING THROUGH DRESSING, CALL THE OFFICE . FOLLOW UP VISIT: If appointment is not already scheduled: Please call [facility] to make a follow-up appointment for 2 weeks after your surgery at . Current Hospital Diet Patient's current hospital diet: Gluten Free Diet Discharge Diet Recommended Diet: Regular Diet Procedures Procedures Performed: Right Total Knee Arthroplasty Pending Studies Studies pending at discharge: no Laboratory Results Hemoglobin A1c Test 06/22/17 15:45 Range/Units Estimated Average Glucose 105 mg/dl Hemoglobin A1c 5.3 4.5-5.6 % Medical Emergencies . Who to Call and When: Medical Emergencies: If at any time you feel your situation is an emergency, please call 911 immediately. . Non-Emergent Contact Non-Emergency issues call your: Primary Care Provider . "Provider Documentation" section prepared by Nikita Pizano. . VTE Core Measure Inpt VTE Proph given/why not?: Other Anticoagulation (asa), T.E.D. Stockings, SCD's [place] Drug Monitoring Program Search Results: patient reviewed within database, no issues identified
[2017-07-30] MEDS ORDERED: POTASSIUM CHLORIDE 10 MEQ TABCR PO STA (08:54)
[2017-07-30 09:30] VITALS: BP 136/85; PULSE 74; TEMP 36.6; O2SAT 92
--- NOTE | 2017-07-30 10:37 | DISCHARGE SUMMARY ---
DISCHARGE DIAGNOSIS: Degenerative joint disease, right knee. SECONDARY DIAGNOSES: Hypertension, asthma, obesity, osteoarthritis. CONSULTS: Tamiko Foster/Dr. Allyssa M.D. COMPLICATIONS: None. PROCEDURES: Right total knee arthroplasty performed by Dr. Avila on 07/28/2017. BRIEF HISTORY: As dictated in history and physical. HOSPITAL SUMMARY: The patient was admitted on the above-noted date and had the above-noted surgery performed which she tolerated well. On the first postoperative day, she was feeling well and pain was controlled. She had no complaints. Calves were soft and nontender, neurovascularly intact. Dressings clean, dry and intact. Toes were mobile. Vital signs were stable. She was afebrile and hemoglobin was 12.9 and she was started on physical therapy protocol and continued on DVT prophylaxis and pain management. By her second postoperative day, she continued to remain stable. She was progressing well with physical therapy. She had no complaints. Dressing was clean, dry and intact. Toes were mobile. Calves were soft and nontender. Vital signs were stable. Hemoglobin was 11.2. She was progressing with PT and it was felt she could be discharged to home. For further review, please see chart. LAB AND X-RAY DATA: As per chart. DISCHARGE INSTRUCTIONS: The patient was discharged to home in satisfactory condition on 07/30/2017. DIET: Gluten free. ACTIVITY: Follow TK instruction sheets and special care instructions as noted. Follow up with Dr. Avila in 2 weeks from the day of surgery. The patient to call for appointment if one has not been made for you. DISCHARGE MEDICATIONS: Acetaminophen 1000 mg p.o. q. 8 hours for 21 days, aspirin 81 mg p.o. b.i.d., Zofran 8 mg p.o. q. 8 hours p.r.n. nausea, OxyContin 10 mg p.o. q. 12 hours, oxycodone 5-10 mg p.o. q. 4 hours p.r.n. Resume home meds as listed. Stop taking ibuprofen and Percocet.
== END 2017-07-30 10:00 | disposition home health service (06) | DRG 470 ==
LOC: C.ACU 06:24 → C.3E 07:06 → ENRESERV 11:29
PROVIDERS: ADMIT Orthopaedic Surgery Sports Medicine; ATTEND Orthopaedic Surgery Sports Medicine
PROC: 0SRC0J9 Replacement of Right Knee Joint with Synthetic Substitute, Cemented, Open Approach (ICD-10-PCS; principal; 2017-07-28 08:45)
DX: M17.11 Unilateral primary osteoarthritis, right knee (principal); Z68.41 Body mass index [BMI] 40.0-44.9, adult; E66.01 Morbid (severe) obesity due to excess calories; I10 Essential (primary) hypertension; J45.909 Unspecified asthma, uncomplicated; Z98.84 Bariatric surgery status; Z90.49 Acquired absence of other specified parts of digestive tract; Z90.710 Acquired absence of both cervix and uterus; Z79.899 Other long term (current) drug therapy; Z88.6 Allergy status to analgesic agent; Z88.8 Allergy status to other drugs, medicaments and biological substances

== ENCOUNTER 2020-12-05 11:16 | Inpatient (IN) ==
[2020-12-05] MEDS ORDERED: DEXAMETHASONE SOD INJ 10 MG/ML VIAL IV ONE (11:23)
--- NOTE | 2020-12-05 11:58 | XRay Report ---
SINGLE VIEW CHEST CLINICAL HISTORY: Sepsis. Covid. FINDINGS: An AP, portable, upright chest radiograph is compared to study dated 06/22/2017. The heart is enlarged. There is multifocal patchy airspace consolidation. No large pleural effusion or pneumothor ax is seen. The skeletal structures are osteopenic. The bony thorax is grossly intact. IMPRESSION: Multifocal airspace consolidation is typical for multifocal pneumonia. Radiographic follo w-up to resolution is recommended. ACT 112: Negative or not required by law. Electronically signed by: Shaun Short M.D. 12/05/2020 11:56 AM
[2020-12-05 12:27] LABS: Hematocrit (blood only) 40.2 % (37-47); Hemoglobin 13.6 g/dL (12.0-16.0); Lymphocytes % (auto) 13.9 %; Mean Corpuscular Hemoglobin 31.8 pg (25-34); Mean Corpuscular Hgb Conc 33.8 g/dL (32-36); Mean Corpuscular Volume 93.9 fL (80-100); Mean Platelet Volume 12.4 fL (7.4-10.4); Monocytes % (auto) 8.6 %; Neutrophils % (auto) 76.5 %; Platelet Count 137 K/uL (130-400); Red Blood Count 4.28 M/uL (4.2-5.4); White Blood Count 4.74 K/uL (4.8-10.8)
[2020-12-05 12:28] LABS: Basophils # (auto) 0.01 K/uL (0-0.2); Basophils % (auto) 0.2 %; Immature Granulocytes # (auto) 0.04 K/uL (0.00-0.02); Immature Granulocytes % (auto) 0.8 %; Lymphocytes # (auto) 0.66 K/uL (1.2-3.4); Monocytes # (auto) 0.41 K/uL (0.11-0.59); Neutrophils # (auto) 3.62 K/uL (1.4-6.5)
[2020-12-05 12:29] LABS: Base Excess VBG 4.3 mEq/L; Oxygen Saturation VBG 95.7 %; pH VBG 7.45 (7.36-7.41)
[2020-12-05 12:38] LABS: INR 1.1 (0.9-1.1); Partial Thromboplastin Ratio 1.6; Partial Thromboplastin Time 43.5 Seconds (21.0-31.0); Prothrombin Time 11.8 Seconds (9.0-12.0)
[2020-12-05 12:48] LABS: Alanine Aminotransferase 21 U/L (12-78); Albumin Level 3.5 gm/dl (3.4-5.0); Aspartate Aminotransferase 20 U/L (15-37); BUN Creatinine Ratio 10.8 (10-20); Blood Urea Nitrogen 12 mg/dl (7-18); Calcium 8.8 mg/dl (8.5-10.1); Carbon Dioxide 31 mmol/L (21-32); Chloride 102 mmol/L (98-107); Creatinine Clr Calc Pharmacy 70.3 ml/min; Est GFR (Non-African American) 52.6; Glucose 109 mg/dl (70-99); Potassium 3.1 mmol/L (3.5-5.1); Sodium 137 mmol/L (136-145)
--- NOTE | 2020-12-05 12:48 | Emergency Department Note ---
History of Present Illness General Chief complaint: Shortness of Breath/Dyspnea Stated complaint: COVID + Time Seen by Provider: 12/05/20 11:22 History of Present Illness Provider complaint: Shortness of breath diarrhea cough Onset (ago): week(s) 1 Maximum Pain Intensity: 2 Associated symptoms: + cough, + fever/chills, + malaise, + nausea/vomiting and + shortness of breath 65-year-old female presents emergency department shortness of breath, cough, and diarrhea. Patient states her symptoms began 1 week ago. Patient states she tested positive for COVID-19 last week. She states her fevers she cannot control at home. Patient states she has asthma and has been using her nebulizer at home but is still feeling short of breath. Patient also reports being on Xarelto and states she had one episode of hemoptysis earlier this week. States she has not missed any doses of her Xarelto. Home Medications Medication Instructions Recorded Confirmed Type acetaminophen [Tylenol Extra 1,000 mg PO Q6H PRN 12/05/20 12/05/20 History Strength] albuterol sulfate 1.25 mg INHALATION QID PRN 12/05/20 12/05/20 History albuterol sulfate [Ventolin HFA] 2 puff INHALATION QID PRN 12/05/20 12/05/20 History azithromycin 500 mg PO QAM 12/05/20 12/05/20 History fluticasone propion-salmeterol 1 inh INHALATION BID 12/05/20 12/05/20 History [Advair Diskus] hydralazine 10 mg PO TID 12/05/20 12/05/20 History hydrochlorothiazide 12.5 mg PO QAM 12/05/20 12/05/20 History olmesartan 40 mg PO QAM 12/05/20 12/05/20 History prednisone 20 mg PO QAM 12/05/20 12/05/20 History rivaroxaban [Xarelto] 20 mg PO PM 12/05/20 12/05/20 History Allergies Allergy/AdvReac Type Severity Reaction Status Date / Time naproxen Allergy Severe couldn't Verified 12/05/20 13:07 breathe adhesive Allergy Unknown rash Verified 12/05/20 13:07 amlodipine Allergy Unknown leg Verified 12/05/20 13:07 swelling gluten Allergy Unknown GI Verified 12/05/20 13:07 reactions Past Med/Surg History Medical History (Updated 12/05/20 @ 13:46 by Alfredo Walls MD) Asthma COVID-19 Hypertension No pertinent family history Surgical History (Updated 12/05/20 @ 12:45 by Stuart Davila) No pertinent past surgical history Social History Smoking Status: Never smoker Feels Safe at Home: Yes Review of Systems A total of 10 systems reviewed and were otherwise negative Physical Exam Vital Signs Vital Signs - 24 hr 12/05/20 11:17 12/05/20 11:57 12/05/20 12:00 Temperature 36.8 C Temperature Source Temporal Artery Scan Pulse Rate 103 H 84 82 Pulse Rate from SpO2 Sensor 84 83 Respiratory Rate 18 25 H 20 Respiratory Depth Respiratory Pattern Blood Pressure 143/83 H Blood Pressure Mean 103 Pulse Oximetry 88 L 97 97 Oxygen Delivery Method Room Air Nasal Cannula Nasal Cannula Oxygen Flow Rate 2 2 Sepsis Recent Fever Within 48 Hours No Sepsis New/Unexplained Change in Mental Status No Sepsis Action Taken by Nursing No Action Required 12/05/20 12:10 12/05/20 12:16 12/05/20 12:20 Temperature Temperature Source Pulse Rate 84 85 Pulse Rate from SpO2 Sensor 84 85 Respiratory Rate 25 H 23 Respiratory Depth Normal Respiratory Pattern Regular Blood Pressure Blood Pressure Mean Pulse Oximetry 97 98 95 Oxygen Delivery Method Nasal Cannula Oxygen Flow Rate 2 Sepsis Recent Fever Within 48 Hours Sepsis New/Unexplained Change in Mental Status Sepsis Action Taken by Nursing 12/05/20 12:30 12/05/20 12:40 12/05/20 12:42 Temperature Temperature Source Pulse Rate 86 84 85 Pulse Rate from SpO2 Sensor 87 83 85 Respiratory Rate 17 26 H 20 Respiratory Depth Respiratory Pattern Blood Pressure 148/89 H Blood Pressure Mean 100 Pulse Oximetry 92 93 93 Oxygen Delivery Method Oxygen Flow Rate Sepsis Recent Fever Within 48 Hours Sepsis New/Unexplained Change in Mental Status Sepsis Action Taken by Nursing 12/05/20 12:43 12/05/20 12:50 12/05/20 13:00 Temperature Temperature Source Pulse Rate 88 81 82 Pulse Rate from SpO2 Sensor 89 81 82 Respiratory Rate 23 29 H 20 Respiratory Depth Respiratory Pattern Blood Pressure 144/88 H Blood Pressure Mean 111 Pulse Oximetry 92 94 93 Oxygen Delivery Method Oxygen Flow Rate Sepsis Recent Fever Within 48 Hours Sepsis New/Unexplained Change in Mental Status Sepsis Action Taken by Nursing 12/05/20 13:01 12/05/20 13:10 12/05/20 13:20 Temperature Temperature Source Pulse Rate 92 H 88 87 Pulse Rate from SpO2 Sensor 92 H 88 87 Respiratory Rate 21 23 23 Respiratory Depth Respiratory Pattern Blood Pressure Blood Pressure Mean Pulse Oximetry 93 93 92 Oxygen Delivery Method Oxygen Flow Rate Sepsis Recent Fever Within 48 Hours Sepsis New/Unexplained Change in Mental Status Sepsis Action Taken by Nursing Physical Exam GENERAL: She is oriented to person, place, and time. She appears well-developed and well-nourished. She does not appear distressed. HENT: Exam performed. -Head: Normocephalic and atraumatic. -Right Ear: External ear normal. No mastoid tenderness. -Left Ear: External ear normal. No mastoid tenderness. -Mouth/Throat: The oropharynx is clear and moist. No trismus in the jaw. No dental abscesses or uvula swelling. No oropharyngeal exudate or tonsillar abscesses. EYES: Conjunctivae and EOM are normal. Pupils are equal, round, and reactive to light. Right eye exhibits no discharge. Left eye exhibits no discharge. No scleral icterus. NECK: Normal range of motion. Neck supple. No JVD present. No spinous process tenderness present. No carotid bruit present. No rigidity. No tracheal deviation and normal range of motion present. No Brudzinski's sign and no Kernig's sign noted. CV: Normal rate, regular rhythm, normal heart sounds and intact distal pulses. There is no peripheral edema. Palpable radial pulses bue. PULM/CHEST: Diminished breath sounds bilaterally. ABD: The abdomen is soft. Bowel sounds are normal. She has no distension. No mass is present. There is no tenderness. There is no rebound, no guarding, no Webster's sign and no tenderness at McBurney's point. Rovsig negative MUSC/SKEL: Normal range of motion. There is no peripheral edema, tenderness or deformity. LYMPH: No cervical adenopathy. NEURO: She is alert and oriented to person, place, and time. She has normal st rength. No cranial nerve deficit or sensory deficit. Coordination and gait normal. GCS eye subscore is 4. GCS verbal subscore is 5. GCS motor subscore is 6. Cerebellar tests wnl. SKIN: Skin is warm and dry. She is not diaphoretic. PSYCH: She has a normal mood and affect. Behavior is normal. Judgment and thought content normal. Course Course 1122: The patient was evaluated in room B8. A complete history and physical exam was performed. Patient was seen in full airborne precautions. Patient was seen in N95's, gloves, gowns, face shield by myself and staff. Cardiac monitoring: An order was placed for continuous cardiac monitoring. The monitor shows a rate of 90 with sinus rhythm Decadron 6 mg IV push ordered for the patient. 1330: Vital signs stable on supplemental oxygen. Labs within normal limits with the exception of an elevated procalcitonin level. Chest x-ray shows multifocal pneumonia. Given the elevated procalcitonin level, there is concern that there might be a bacterial component to the patient's pneumonia in addition to the pneumonia due to her COVID-19. Patient has been compliant with Xarelto. Discussed the case with Dr. Kavita velasquez any hospitalist will admit the patient. He recommends starting the patient on doxycycline 100 mg p.o. twice daily and 2 g Rocephin. Administered Medications Discontinued Medications Azithromycin (Azithromycin 250 Mg Tab) 500 mg PO NOW ONE Stop: 12/05/20 13:32 Last Admin: 12/05/20 13:53 Dose: Not Given Documented by: [id number] Dexamethasone (Dexamethasone Sod Inj 10 Mg/Ml Vial) 6 mg IV NOW ONE Stop: 12/05/20 11:24 Last Admin: 12/05/20 12:02 Dose: 6 mg Documented by: [id number] Doxycycline Hyclate (Doxycycline Hyclate 100 Mg Cap) 100 mg PO NOW STA Stop: 12/05/20 13:34 Last Admin: 12/05/20 13:48 Dose: 100 mg Documented by: [id number] Ceftriaxone Sodium (Rocephin) 1,000 mg in 50 mls @ 100 mls/hr IV NOW STA Stop: 12/05/20 14:00 Last Admin: 12/05/20 13:53 Dose: Not Given Documented by: [id number] Ceftriaxone Sodium (Rocephin) 2,000 mg in 70 mls @ 140 mls/hr IV NOW STA Stop: 12/05/20 14:02 Last Admin: 12/05/20 13:48 Dose: 140 mls/hr Documented by: [id number] Critical Care Time Critical Care Time: Yes Total Critical Care Time: 65 I have personally spent greater than 65 minutes of critical care time in the direct management of this patient. This includes bedside care, interpretation of diagnostic studies, and testing, discussion with consultants, patient, and family members, and other required patient management activities. This 65 minutes is in excess of all separately billable procedures. Medical Decision Making Laboratory Data Result diagrams: 12/05/20 12:12 12/05/20 12:12 Lab Results 12/05/20 12/05/20 12/05/20 Range/Units 12:12 12:12 12:12 WBC 4.74 L (4.8-10.8) K/uL RBC 4.28 (4.2-5.4) M/uL Hgb 13.6 (12.0-16.0) g/dL Hct 40.2 (37-47) % MCV 93.9 (80-100) fL MCH 31.8 (25-34) pg MCHC 33.8 (32-36) g/dL RDW Std Deviation 48.0 H (36.4-46.3) fL RDW Coeff of Evy 14.0 (11.5-14.5) % Plt Count 137 (130-400) K/uL MPV 12.4 H (7.4-10.4) fL Immature Gran % (Auto) 0.8 % Neut % (Auto) 76.5 % Lymph % (Auto) 13.9 % [place] % (Auto) 8.6 % Eos % (Auto) 0.0 % Baso % (Auto) 0.2 % Neut # (Auto) 3.62 (1.4-6.5) K/uL Lymph # (Auto) 0.66 L (1.2-3.4) K/uL [place] # (Auto) 0.41 (0.11-0.59) K/uL Eos # (Auto) 0.00 (0-0.5) K/uL Baso # (Auto) 0.01 (0-0.2) K/uL Immature Gran # (Auto) 0.04 H (0.00-0.02) K/uL PT (9.0-12.0) Seconds INR (0.9-1.1) APTT (21.0-31.0) Seconds PTT Ratio VBG pH 7.45 H (7.36-7.41) VBG pCO2 43 (38-50) mmHg VBG pO2 76 mmHg VBG HCO3 29 mmol/L VBG O2 Saturation 95.7 % VBG Base Excess 4.3 mEq/L Barometric Pressure 725.3 mm/Hg Sodium 137 (136-145) mmol/L Potassium 3.1 L (3.5-5.1) mmol/L Chloride 102 (98-107) mmol/L Carbon Dioxide 31 (21-32) mmol/L Anion Gap 4.0 (3-11) BUN 12 (7-18) mg/dl Creatinine 1.10 (0.6-1.2) mg/dl Est Cr Clr Drug Dosing 70.3 ml/min Est GFR ( Amer) 61.0 Est GFR (Non-Af Amer) 52.6 BUN/Creatinine Ratio 10.8 (10-20) Glucose 109 H (70-99) mg/dl Lactate (0.4-2.0) mmol/L Calcium 8.8 (8.5-10.1) mg/dl Magnesium 2.0 (1.8-2.4) mg/dl Total Bilirubin 0.3 (0.2-1) mg/dl AST 20 (15-37) U/L ALT 21 (12-78) U/L Alkaline Phosphatase 65 (45-117) U/L Troponin I < 0.015 (0-0.045) ng/ml NT-Pro-B Natriuret Pep 372 (0-900) pg/ml Total Protein 7.4 (6.4-8.2) gm/dl Albumin 3.5 (3.4-5.0) gm/dl Globulin 3.9 (2.5-4.0) gm/dl Albumin/Globulin Ratio 0.9 (0.9-2) Procalcitonin (0-0.5) ng/ml 12/05/20 12/05/20 12/05/20 Range/Units 12:12 12:12 12:12 WBC (4.8-10.8) K/uL RBC (4.2-5.4) M/uL Hgb (12.0-16.0) g/dL Hct (37-47) % MCV (80-100) fL MCH (25-34) pg MCHC (32-36) g/dL RDW Std Deviation (36.4-46.3) fL RDW Coeff of Evy (11.5-14.5) % Plt Count (130-400) K/uL MPV (7.4-10.4) fL Immature Gran % (Auto) % Neut % (Auto) % Lymph % (Auto) % [place] % (Auto) % Eos % (Auto) % Baso % (Auto) % Neut # (Auto) (1.4-6.5) K/uL Lymph # (Auto) (1.2-3.4) K/uL [place] # (Auto) (0.11-0.59) K/uL Eos # (Auto) (0-0.5) K/uL Baso # (Auto) (0-0.2) K/uL Immature Gran # (Auto) (0.00-0.02) K/uL PT 11.8 (9.0-12.0) Seconds INR 1.1 (0.9-1.1) APTT 43.5 H (21.0-31.0) Seconds PTT Ratio 1.6 VBG pH (7.36-7.41) VBG pCO2 (38-50) mmHg VBG pO2 mmHg VBG HCO3 mmol/L VBG O2 Saturation % VBG Base Excess mEq/L Barometric Pressure mm/Hg Sodium (136-145) mmol/L Potassium (3.5-5.1) mmol/L Chloride (98-107) mmol/L Carbon Dioxide (21-32) mmol/L Anion Gap (3-11) BUN (7-18) mg/dl Creatinine (0.6-1.2) mg/dl Est Cr Clr Drug Dosing ml/min Est GFR ( Amer) Est GFR (Non-Af Amer) BUN/Creatinine Ratio (10-20) Glucose (70-99) mg/dl Lactate 1.8 (0.4-2.0) mmol/L Calcium (8.5-10.1) mg/dl Magnesium (1.8-2.4) mg/dl Total Bilirubin (0.2-1) mg/dl AST (15-37) U/L ALT (12-78) U/L Alkaline Phosphatase (45-117) U/L Troponin I (0-0.045) ng/ml NT-Pro-B Natriuret Pep (0-900) pg/ml Total Protein (6.4-8.2) gm/dl Albumin (3.4-5.0) gm/dl Globulin (2.5-4.0) gm/dl Albumin/Globulin Ratio (0.9-2) Procalcitonin 7.85 H (0-0.5) ng/ml Imaging Data Radiologist's Impression: SINGLE VIEW CHEST CLINICAL HISTORY: Sepsis. Covid. FINDINGS: An AP, portable, upright chest radiograph is compared to study dated 06/22/2017. The heart is enlarged. There is multifocal patchy airspace conso lidation. No large pleural effusion or pneumothorax is seen. The skeletal structures are osteopenic. The bony thorax is grossly intact. IMPRESSION: Multifocal airspace consolidation is typical for multifocal pneumonia. Radiographic follow-up to resolution is recommended. ACT 112: Negative or not required by law. Electronically signed by: Shaun Short M.D. 12/05/2020 11:56 AM Dictated: 12/05/20 1155Transcribed: 12/05/20 1155 ECG Data Indication: + SOB/dyspnea Rate (beats per minute): 87 Rhythm: + normal sinus ECG Intervals/blocks: + Normal QRS, + Normal NV and + Normal QT-c ECG ST segments: + Normal ST segments MDM Narrative 1122: The patient was evaluated in room B8. A complete history and physical exam was performed. Patient was seen in full airborne precautions. Patient was seen in N95's, gloves, gowns, face shield by myself and staff. Cardiac monitoring: An order was placed for continuous cardiac monitoring. The monitor shows a rate of 90 with sinus rhythm Decadron 6 mg IV push ordered for the patient. 1330: Vital signs stable on supplemental oxygen. Labs within normal limits with the exception of an elevated procalcitonin level. Chest x-ray shows multifocal pneumonia. Given the elevated procalcitonin level, there is concern that there might be a bacterial component to the patient's pneumonia in addition to the pneumonia due to her COVID-19. Patient has been compliant with Xarelto. Discussed the case with Dr. Kavita velasquez any hospitalist will admit the patient. He recommends starting the patient on doxycycline 100 mg p.o. twice daily and 2 g Rocephin. Impression & Plan Hypoxia, Multifocal pneumonia Discharge Plan Visit Data Chief Complaint: Shortness of Breath/Dyspnea Stated Complaint: COVID + ED Provider: Stuart Davila Discharge Problem: Hypoxia, Multifocal pneumonia Patient Disposition: Admitted As Inpatient Forms Stand Alone Forms: My [facility] Prescriptions Prescriptions: No Action hydralazine 10 mg tablet 10 mg PO TID RF: 0 fluticasone propion-salmeterol [Advair Diskus] 250-50 mcg/dose Blister With Device 1 inh INHALATION BID RF: 0 albuterol sulfate 1.25 mg/3 mL Solution For Nebulization 1.25 mg INHALATION QID PRN (Reason: sob/wheezing) RF: 0 prednisone 20 mg tablet 20 mg PO QAM RF: 0 acetaminophen [Tylenol Extra Strength] 500 mg Tablet 1,000 mg PO Q6H PRN (Reason: fever/pain) RF: 0 hydrochlorothiazide 12.5 mg capsule 12.5 mg PO QAM RF: 0 albuterol sulfate [Ventolin HFA] 90 mcg/actuation HFA aerosol inhaler 2 puff INHALATION QID PRN (Reason: sob/wheezing) RF: 0 olmesartan 40 mg tablet 40 mg PO QAM RF: 0 azithromycin 500 mg tablet 500 mg PO QAM RF: 0 Xarelto 20 mg tablet 20 mg PO PM RF: 0 Referrals Referrals: Raji Hernandez D.O. [Primary Care Provider] -
[2020-12-05 12:53] LABS: Albumin Globulin Ratio 0.9 (0.9-2); Alkaline Phosphatase 65 U/L (45-117); Bilirubin,Total 0.3 mg/dl (0.2-1); Globulin 3.9 gm/dl (2.5-4.0); NT Pro B Type Natriuretic Pept 372 pg/ml (0-900); Total Protein 7.4 gm/dl (6.4-8.2); Troponin I < 0.015 ng/ml (0-0.045)
[2020-12-05] MEDS ORDERED: AZITHROMYCIN 250 MG TAB PO ONE (13:31)
[2020-12-05] MEDS ORDERED: cefTRIAXone SODIUM 1,000 MG/50 ML BAG IV STA (13:31)
[2020-12-05] MEDS ORDERED: DOXYCYCLINE HYCLATE 100 MG CAP PO STA (13:33)
[2020-12-05] MEDS ORDERED: cefTRIAXone SODIUM 2,000 MG/70 ML BAG IV STA (13:33)
--- NOTE | 2020-12-05 13:40 | History & Physical Report ---
Date of Service December 05, 2020 Assessment & Plan (1) Multifocal pneumonia: Failure of azithromycin as an outpatient. Elevated procalcitonin with worsening of illness 12 days previously suggest secondary bacterial pneumonia. Continue ceftriaxone and doxycycline. (2) COVID-19: 3 days of prednisone 40 mg prior to admission. Will continue on dexamethasone 6 mg IV for a total of 7 days. Given diagnosis 12 days ago would not recommend remdesivir or convalescent plasma. Covid isolation precautions. (3) Hypoxia: Without respiratory failure. Secondary to COVID-19 pneumonia and multifocal secondary bacterial pneumonia as above. Aim O2 sats > 90%. (4) Hypertension: Continue on her usual regimen hydralazine 10mg PO TID, Olmesartan 40mg PO daily. Will hold her usual HCTZ 12.5mg PO given current dehydration. Hydralazine 5mg q4h PRN for sBP > 180. (5) Paroxysmal atrial fibrillation: Monitor on telemetry for recurrence. Anticoagulation with Xarelto. On no rate controlling or antiarrhythmics. (6) Asthma: No acute exacerbation. Albuterol PRN for shortness of breath, wheezing or cough Continue Advair Diskus 1 inhalation twice daily. (7) DVT prophylaxis: Xarelto 20mg PO daily Admission and Anticipated Discharge Date Admission Date: Dec 05, 2020 History of Present Illness Chief Complaint: Shortness of breath, generalized fatigue Primary Care Provider: Raji Patel David Shivani Mishra is a 65-year-old female who presents to the ER with shortness of breath with recent diagnosis of COVID-19 pneumonia (12 days previously). She was prescribed prednisone 40 mg p.o. and azithromycin 500 mg p.o. for 5 days. Started taking prednisone on . Finished azithromycin course yesterday. Despite this her symptoms have been slowly progressively getting worse. Significantly worse starting 5 days ago with increased fever, chills. Yesterday started getting burning pain in her back and left side on deep inspiration. Symptoms include fever, chills, shortness of breath with significant orthopnea and paroxysmal nocturnal dyspnea, cough (much worse on lying down, small amounts of blood a few days ago), loss of taste and smell, myalgias, nasal congestion, nausea without vomiting, watery diarrhea, generalized fatigue. She denies any abdominal pain. She comes to the ER today due to much worse shortness of breath overnight, somewhat helped by her nebulizer. She has a significant history of asthma although usually has less than 1 exacerbation a year and despite being prescribed Advair she rarely takes this. She reports her asthma is much better controlled now she is on a gluten-free diet. is also diagnosed with COVID-19 pneumonia since November 25. She thinks she caught it from him. [place] are in a [place] with 20 workers some of whom have also been diagnosed. Her PCP is with [facility]. She has not been seen at this hospital previously (at least since the new electronic health record) therefore past medical history is limited to patient recollection. She reports a history of paroxysmal atrial fibrillation with prior ablation in 2013. She does note a few months ago she was admitted to [facility] with recurrence of her atrial fibrillation. She restarted Xarelto at that time. She denies any history of myocardial infarction or heart failure. She does not take any rate controlling or antiarrhythmic medications. In the ER chest x-ray was concerning for multifocal pneumonia. Procalcitonin positive at 7.85. I discussed with the ER physician and recommended treatment for secondary bacterial community-acquired pneumonia with ceftriaxone and doxyc ycline given recent treatment with azithromycin. Influenza PCR negative. She was minimally hypoxic on admission with saturations of 88% on room air which improved to 97% on 2 L/min. She was referred to medicine for admission and ongoing management of hypoxia, multifocal pneumonia, Covid 19. Allergies Allergy/AdvReac Type Severity Reaction Status Date / Time naproxen Allergy Severe couldn't Verified 12/05/20 13:07 breathe adhesive Allergy Unknown rash Verified 12/05/20 13:07 amlodipine Allergy Unknown leg Verified 12/05/20 13:07 swelling gluten Allergy Unknown GI Verified 12/05/20 13:07 reactions Home Medications Medication Instructions Recorded Confirmed Type acetaminophen [Tylenol Extra 1,000 mg PO Q6H PRN 12/05/20 12/05/20 History Strength] albuterol sulfate 1.25 mg INHALATION QID PRN 12/05/20 12/05/20 History albuterol sulfate [Ventolin HFA] 2 puff INHALATION QID PRN 12/05/20 12/05/20 History azithromycin 500 mg PO QAM 12/05/20 12/05/20 History fluticasone propion-salmeterol 1 inh INHALATION BID 12/05/20 12/05/20 History [Advair Diskus] hydralazine 10 mg PO TID 12/05/20 12/05/20 History hydrochlorothiazide 12.5 mg PO QAM 12/05/20 12/05/20 History olmesartan 40 mg PO QAM 12/05/20 12/05/20 History prednisone 20 mg PO QAM 12/05/20 12/05/20 History rivaroxaban [Xarelto] 20 mg PO PM 12/05/20 12/05/20 History Past Med/Surg History Medical History Asthma COVID-19 Hypertension No pertinent family history Surgical History Status post ablation of atrial fibrillation Social History Smoking Status: Never smoker Do You Dip or Chew Tobacco: No; Hx Alcohol Use: Yes Hx Substance Use: No Preferred Language: Latvian Transcribing Operator Head Required: No Beliefs That Will Affect Care: None Current Living Situation: Spouse Feels Safe at Home: Yes Assistive Devices: Glasses and Oxygen - Continuous Review of Systems Review of Systems: All systems reviewed & are unremarkable except as noted in HPI & below Gastrointestinal: + diarrhea/loose stools (Watery) Physical Exam Constitutional: well developed and well nourished; no acute distress Eyes: + anicteric sclerae; normal pupil size ENMT: external ear and nose normal, oropharynx normal Neck: trachea midline, no thyromegaly Respiratory: normal respiratory effort, lungs clear to auscultation Cardiovascular: RRR, no murmur, no edema Gastrointestinal (Abdomen): Inspection/Auscultation: abdomen normal to inspection and + hyperactive bowel sounds Percussion/Palpation: abdomen soft; abdomen nontender, no guarding and abdomen not rigid Musculoskeletal: no cyanosis or clubbing, extremities motor strength 5/5 Skin: no rashes, warm and dry Neurologic: moves all extremities and awake; not confused Psychiatric: A+Ox3, euthymic affect Genitourinary: no CVA tenderness Results & Data Results & Data ([facility]) Vital Signs (Past 12 Hours) Vital Signs Temp Pulse Resp BP Pulse Ox 12/05/20 13:20 87 23 92 12/05/20 13:10 88 23 93 12/05/20 13:01 92 H 21 93 12/05/20 13:00 82 20 144/88 H 93 12/05/20 12:50 81 29 H 94 12/05/20 12:43 88 23 92 12/05/20 12:42 85 20 148/89 H 93 12/05/20 12:40 84 26 H 93 12/05/20 12:30 86 17 92 12/05/20 12:20 85 23 95 12/05/20 12:16 98 12/05/20 12:10 84 25 H 97 12/05/20 12:00 82 20 97 12/05/20 11:57 84 25 H 97 12/05/20 11:17 36.8 C 103 H 18 143/83 H 88 L Diagnostic Findings SINGLE VIEW CHEST IMPRESSION: Multifocal airspace consolidation is typical for multifocal pneumonia. Radiographic follow-up to resolution is recommended. Medications Administered ER medications given: Doxycycline 100 mg p.o. Ceftriaxone 2 g IV ECG Indication: SOB/dyspnea Rate (beats per minute): 87 Rhythm: normal sinus Findings: no acute ischemic change Comparison ECG Date: from (06/22/2017) Change: no significant change Code Status & VTE Plan Code Status Full VTE Prophylaxis Plan VTE Prophylaxis will be ordered: Yes PG Care Time/CCT Total # of Minutes Spent Total Time Spent with Patient: Total time spent is greater than 50% in coordin ation of care (as documented) at patient's floor/unit and/or counseling patient: Coding Level of Care Code 78833 Initial Inpt Care Lvl 3 Diagnoses Multifocal pneumonia J18.9 COVID-19 U07.1 Hypoxia R09.02 Hypertension I10 Paroxysmal atrial fibrillation I48.0 Asthma J45.909 DVT prophylaxis Z29.9
[2020-12-05] MEDS ORDERED: hydrALAZINE HCL 20 MG/ML VIAL IV STA (14:17)
[2020-12-05 16:52] LABS: Influenza A virus by PCR Negative (Negative); Influenza B virus by PCR Negative (Negative)
[2020-12-05] MEDS ORDERED: ONDANSETRON INJ 2 MG/ML 2 ML VIAL IV PRN (16:59)
[2020-12-05] MEDS ORDERED: ALUMINUM/MAGNESIUM SUSP 30 ML UDC PO PRN (16:59)
[2020-12-05 18:50] LABS: Appearance Urine Clear (Clear); Bacteria Urine Automated Negative (Negative); Bilirubin Urine Negative (Negative); Blood Urine Negative (Negative); Cast Urine Automated 0 /lpf (0-5); Color Urine Yellow; Glucose Urine UA Negative (Negative); Ketones Urine Negative (Negative); Leukocyte Esterase Urine 1+ (Negative); Nitrite Urine Negative (Negative); Protein Urine Negative (Negative); RBC Urine Automated 0-4 /hpf (0-4); Specific Gravity Urine 1.007 (1.000-1.030); Urobilinogen Urine Negative (Negative); pH Urine 6.5 (4.5-7.5)
[2020-12-05] MEDS: hydrALAZINE 10 MG TAB PO SCH (20:22)
[2020-12-05] MEDS: FLUTICASONE/VILANTEROL 200/25MCG 14 PUFFS/INHALER INH SCH (20:22)
[2020-12-05] MEDS: RIVAROXABAN 20 MG TAB PO SCH (20:23)
[2020-12-05] MEDS ORDERED: hydrALAZINE HCL 20 MG/ML VIAL IV PRN (20:42)
[2020-12-05] MEDS ORDERED: POTASSIUM CHLORIDE CRTAB 20 MEQ TABCR PO STA (22:00)
[2020-12-05] MEDS: DOXYCYCLINE HYCLATE 100 MG CAP PO SCH (22:24)
--- NOTE | 2020-12-06 06:11 | Electrocardiogram Report ---
Test Reason : Blood Pressure : / mmHG Vent. Rate : 087 BPM Atrial Rate : 087 BPM P-R Int : 158 ms QRS Dur : 088 ms QT Int : 372 ms P-R-T Axes : 011 028 015 degrees QTc Int : 447 ms Normal sinus rhythm Normal ECG When compared with ECG of 22-JUN-2017 15:48, No significant change was found Confirmed by Pietro Fierro ([id number]) on 12/06/2020 6:11:04 AM Referred By: Confirmed By:Pietro Fierro
[2020-12-06 06:39] LABS: Hematocrit (blood only) 41.7 % (37-47); Hemoglobin 14.1 g/dL (12.0-16.0); Immature Granulocytes # (auto) 0.03 K/uL (0.00-0.02); Immature Granulocytes % (auto) 0.6 %; Lymphocytes # (auto) 0.54 K/uL (1.2-3.4); Lymphocytes % (auto) 10.3 %; Mean Corpuscular Hgb Conc 33.8 g/dL (32-36); Mean Corpuscular Volume 94.8 fL (80-100); Mean Platelet Volume 12.6 fL (7.4-10.4); Monocytes # (auto) 0.71 K/uL (0.11-0.59); Monocytes % (auto) 13.5 %; Neutrophils # (auto) 3.97 K/uL (1.4-6.5); Neutrophils % (auto) 75.6 %; Platelet Count 155 K/uL (130-400); RDW Standard Deviation 48.4 fL (36.4-46.3); White Blood Count 5.25 K/uL (4.8-10.8)
[2020-12-06 07:00] LABS: Albumin Level 3.4 gm/dl (3.4-5.0); BUN Creatinine Ratio 14.6 (10-20); Calcium 8.9 mg/dl (8.5-10.1); Est GFR (African American) 66.8; Est GFR (Non-African American) 57.7; Potassium 3.5 mmol/L (3.5-5.1)
[2020-12-06 07:03] LABS: Albumin Globulin Ratio 0.9 (0.9-2); Bilirubin,Total 0.4 mg/dl (0.2-1); C Reactive Protein 8.66 mg/dl (0-0.29); Globulin 3.9 gm/dl (2.5-4.0); Total Protein 7.3 gm/dl (6.4-8.2)
[2020-12-06] MEDS: dexAMETHasone 6 MG in SYRINGE 0 ML IV SCH (08:20)
[2020-12-06] MEDS: OLMESARTAN MEDOXOMIL 40 MG TAB PO SCH (08:21)
[2020-12-06] MEDS: hydrALAZINE 10 MG TAB PO SCH ×3 (08:22→20:33)
[2020-12-06] MEDS: DOXYCYCLINE HYCLATE 100 MG CAP PO SCH ×2 (08:22→20:33)
[2020-12-06] MEDS: ACETAMINOPHEN 325 MG TAB PO PRN (08:43)
--- NOTE | 2020-12-06 10:40 | Hospitalist Progress Note ---
Date of Service December 06, 2020 Assessment & Plan (1) Multifocal pneumonia: Failure of azithromycin as an outpatient. Elevated procalcitonin with worsening of illness 12 days previously suggest secondary bacterial pneumonia. treat with ceftriaxone and doxycycline x 7 days WBC normal, no fever, sats 94% on 2L order flutter valve to mobilize sputum if she has any (2) COVID-19: 3 days of prednisone 40 mg prior to admission. Will continue on dexa methasone 6 mg IV for a total of 7 days, today is day 2 Given diagnosis 12 days ago would not recommend remdesivir or convalescent plasma no fever, minimal oxygen requirements encourage nutrition (3) Hypoxia: Secondary to COVID-19 pneumonia and multifocal secondary bacterial pneumonia as above. Aim O2 sats > 90%. she is 94% on 2L, no distress (4) Hypertension: Continue on her usual regimen hydralazine 10mg PO TID, Olmesartan 40mg PO daily. Will hold her usual HCTZ 12.5mg PO given current dehydration. Hydralazine 5mg q4h PRN for sBP > 180. BP stable (5) Paroxysmal atrial fibrillation: Monitor on telemetry for recurrence, she is in sinus rhythm Anticoagulation with Xarelto. On no rate controlling or antiarrhythmics. (6) Asthma: No acute exacerbation. Albuterol PRN for shortness of breath, wheezing or cough Continue Advair Diskus 1 inhalation twice daily. (7) DVT prophylaxis: Xarelto 20mg PO daily Admission and Anticipated Discharge Date Admission Date: December 05, 2020 Subjective reviewed chart, patient sick for 11-12 days she was on Prednisone 40mg daily x Zithromax for three days prior to admission she was getting worse with fever, dyspnea, back pains, watery diarrhea reviewed labs, WBC, Hb and plts normal Cr 1.0, electrolytes stable, procalcitonin up at 7 and CRP elevated suggests a bacterial infection reviewed CXR personally, evidence of multifocal pneumonia, all lobes flu negative, legionella pending, MRSA swab negative, C diff negative patient is feeling better this morning, saturating 94% on 2L, no distress, sitting OOB in chair eating okay, no great, no diarrhea this morning, no nausea, no abdominal pain, no fever/chills Review of Systems Review of Systems: All systems reviewed & are unremarkable except as noted in Subjective Physical Exam Constitutional: WD/WN, vitals as above + obese; no acute distress Neck: trachea midline, no thyromegaly Respiratory: normal respiratory effort, lungs clear to auscultation no respiratory distress and no labored breathing Cardiovascular: RRR, no murmur, no edema Gastrointestinal (Abdomen): normal bowel sounds, soft, nontender, no hepatosplenomegaly Musculoskeletal: no cyanosis or clubbing, extremities motor strength 5/5 Skin: no rashes, warm and dry Neurologic: patellar DTR's 2+ bilat, sensation intact and PERRL, EOMI, accommodation nl, no face palsy, no dysarthria Psychiatric: A+Ox3, euthymic affect Lymphatic: no cervical or axillary lymphadenopathy Results & Data Results & Data ([facility]) Vital Signs (Past 12 Hours) Vital Signs Temp Pulse Pulse Resp BP Pulse Ox 12/06/20 07:02 37.8 C H 71 20 136/84 90 12/06/20 03:18 37.2 C 69 18 145/85 H 92 12/06/20 00:26 73 12/05/20 23:18 37.4 C 73 18 144/93 H 92 Laboratory Results Laboratory Results - last 24 hr 12/05/20 12/05/20 12/05/20 12:12 12:12 12:12 WBC 4.74 L RBC 4.28 Hgb 13.6 Hct 40.2 MCV 93.9 MCH 31.8 MCHC 33.8 RDW Std Deviation 48.0 H RDW Coeff of Evy 14.0 Plt Count 137 MPV 12.4 H Immature Gran % (Auto) 0.8 Neut % (Auto) 76.5 Lymph % (Auto) 13.9 [place] % (Auto) 8.6 Eos % (Auto) 0.0 Baso % (Auto) 0.2 Neut # (Auto) 3.62 Lymph # (Auto) 0.66 L [place] # (Auto) 0.41 Eos # (Auto) 0.00 Baso # (Auto) 0.01 Immature Gran # (Auto) 0.04 H PT INR APTT PTT Ratio VBG pH 7.45 H VBG pCO2 43 VBG pO2 76 VBG HCO3 29 VBG O2 Saturation 95.7 VBG Base Excess 4.3 Barometric Pressure 725.3 Sodium 137 Potassium 3.1 L Chloride 102 Carbon Dioxide 31 Anion Gap 4.0 BUN 12 Creatinine 1.10 Est Cr Clr Drug Dosing 70.3 Est GFR ( Amer) 61.0 Est GFR (Non-Af Amer) 52.6 BUN/Creatinine Ratio 10.8 Glucose 109 H Lactate Calcium 8.8 Magnesium 2.0 Total Bilirubin 0.3 AST 20 ALT 21 Alkaline Phosphatase 65 Troponin I < 0.015 C-Reactive Protein NT-Pro-B Natriuret Pep 372 Total Protein 7.4 Albumin 3.5 Globulin 3.9 Albumin/Globulin Ratio 0.9 Procalcitonin Urine Color Urine Appearance Urine pH Ur Specific [place] Urine Protein Urine Glucose (UA) Urine Ketones Urine Blood Urine Nitrite Urine Bilirubin Urine Urobilinogen Ur Leukocyte Esterase Urine WBC (Auto) Urine RBC (Auto) U Hyaline Cast (Auto) U Epithel Cells (Auto) Urine Bacteria (Auto) Nasal Screen MRSA (PCR) Stl C. diff Tox B Gene Hepatitis C Ab Screen Influ A Molecular Assay Influ B Molecular Assay Urine Legionella Ag 12/05/20 12/05/20 12/05/20 12:12 12:12 12:12 WBC RBC Hgb Hct MCV MCH MCHC RDW Std Deviation RDW Coeff of Evy Plt Count MPV Immature Gran % (Auto) Neut % (Auto) Lymph % (Auto) [place] % (Auto) Eos % (Auto) Baso % (Auto) Neut # (Auto) Lymph # (Auto) [place] # (Auto) Eos # (Auto) Baso # (Auto) Immature Gran # (Auto) PT 11.8 INR 1.1 APTT 43.5 H PTT Ratio 1.6 VBG pH VBG pCO2 VBG pO2 VBG HCO3 VBG O2 Saturation VBG Base Excess Barometric Pressure Sodium Potassium Chloride Carbon Dioxide Anion Gap BUN Creatinine Est Cr Clr Drug Dosing Est GFR ( Amer) Est GFR (Non-Af Amer) BUN/Creatinine Ratio Glucose Lactate 1.8 Calcium Magnesium Total Bilirubin AST ALT Alkaline Phosphatase Troponin I C-Reactive Protein NT-Pro-B Natriuret Pep Total Protein Albumin Globulin Albumin/Globulin Ratio Procalcitonin 7.85 H Urine Color Urine Appearance Urine pH Ur Specific [place] Urine Protein Urine Glucose (UA) Urine Ketones Urine Blood Urine Nitrite Urine Bilirubin Urine Urobilinogen Ur Leukocyte Esterase Urine WBC (Auto) Urine RBC (Auto) U Hyaline Cast (Auto) U Epithel Cells (Auto) Urine Bacteria (Auto) Nasal Screen MRSA (PCR) Stl C. diff Tox B Gene Hepatitis C Ab Screen Influ A Molecular Assay Influ B Molecular Assay Urine Legionella Ag 12/05/20 12/05/20 12/05/20 14:55 17:20 17:45 WBC RBC Hgb Hct MCV MCH MCHC RDW Std Deviation RDW Coeff of Evy Plt Count MPV Immature Gran % (Auto) Neut % (Auto) Lymph % (Auto) [place] % (Auto) Eos % (Auto) Baso % (Auto) Neut # (Auto) Lymph # (Auto) [place] # (Auto) Eos # (Auto) Baso # (Auto) Immature Gran # (Auto) PT INR APTT PTT Ratio VBG pH VBG pCO2 VBG pO2 VBG HCO3 VBG O2 Saturation VBG Base Excess Barometric Pressure Sodium Potassium Chloride Carbon Dioxide Anion Gap BUN Creatinine Est Cr Clr Drug Dosing Est GFR ( Amer) Est GFR (Non-Af Amer) BUN/Creatinine Ratio Glucose Lactate Calcium Magnesium Total Bilirubin AST ALT Alkaline Phosphatase Troponin I C-Reactive Protein NT-Pro-B Natriuret Pep Total Protein Albumin Globulin Albumin/Globulin Ratio Procalcitonin Urine Color Urine Appearance Urine pH Ur Specific [place] Urine Protein Urine Glucose (UA) Urine Ketones Urine Blood Urine Nitrite Urine Bilirubin Urine Urobilinogen Ur Leukocyte Esterase Urine WBC (Auto) Urine RBC (Auto) U Hyaline Cast (Auto) U Epithel Cells (Auto) Urine Bacteria (Auto) Nasal Screen MRSA (PCR) Negative Stl C. diff Tox B Gene Hepatitis C Ab Screen Neg Influ A Molecular Assay Negative Influ B Molecular Assay Negative Urine Legionella Ag 12/05/20 12/05/20 12/05/20 18:35 18:35 21:40 WBC RBC Hgb Hct MCV MCH MCHC RDW Std Deviation RDW Coeff of Evy Plt Count MPV Immature Gran % (Auto) Neut % (Auto) Lymph % (Auto) [place] % (Auto) Eos % (Auto) Baso % (Auto) Neut # (Auto) Lymph # (Auto) [place] # (Auto) Eos # (Auto) Baso # (Auto) Immature Gran # (Auto) PT INR APTT PTT Ratio VBG pH VBG pCO2 VBG pO2 VBG HCO3 VBG O2 Saturation VBG Base Excess Barometric Pressure Sodium Potassium Chloride Carbon Dioxide Anion Gap BUN Creatinine Est Cr Clr Drug Dosing Est GFR ( Amer) Est GFR (Non-Af Amer) BUN/Creatinine Ratio Glucose Lactate Calcium Magnesium Total Bilirubin AST ALT Alkaline Phosphatase Troponin I C-Reactive Protein NT-Pro-B Natriuret Pep Total Protein Albumin Globulin Albumin/Globulin Ratio Procalcitonin Urine Color Yellow Urine Appearance Clear Urine pH 6.5 Ur Specific [place] 1.007 Urine Protein Negative Urine Glucose (UA) Negative Urine Ketones Negative Urine Blood Negative Urine Nitrite Negative Urine Bilirubin Negative Urine Urobilinogen Negative Ur Leukocyte Esterase 1+ H Urine WBC (Auto) 5-10 H Urine RBC (Auto) 0-4 U Hyaline Cast (Auto) 0 U Epithel Cells (Auto) 10-20 H Urine Bacteria (Auto) Negative Nasal Screen MRSA (PCR) Stl C. diff Tox B Gene Negative Cdiff Gene Hepatitis C Ab Screen Influ A Molecular Assay Influ B Molecular Assay Urine Legionella Ag Pending 12/06/20 12/06/20 06:17 06:17 WBC 5.25 RBC 4.40 Hgb 14.1 Hct 41.7 MCV 94.8 MCH 32.0 MCHC 33.8 RDW Std Deviation 48.4 H RDW Coeff of Evy 14.0 Plt Count 155 MPV 12.6 H Immature Gran % (Auto) 0.6 Neut % (Auto) 75.6 Lymph % (Auto) 10.3 [place] % (Auto) 13.5 Eos % (Auto) 0.0 Baso % (Auto) 0.0 Neut # (Auto) 3.97 Lymph # (Auto) 0.54 L [place] # (Auto) 0.71 H Eos # (Auto) 0.00 Baso # (Auto) 0.00 Immature Gran # (Auto) 0.03 H PT INR APTT PTT Ratio VBG pH VBG pCO2 VBG pO2 VBG HCO3 VBG O2 Saturation VBG Base Excess Barometric Pressure Sodium 139 Potassium 3.5 Chloride 102 Carbon Dioxide 29 Anion Gap 8.0 BUN 15 Creatinine 1.02 Est Cr Clr Drug Dosing 76.0 Est GFR ( Amer) 66.8 Est GFR (Non-Af Amer) 57.7 BUN/Creatinine Ratio 14.6 Glucose 115 H Lactate Calcium 8.9 Magnesium Total Bilirubin 0.4 AST 16 ALT 21 Alkaline Phosphatase 60 Troponin I C-Reactive Protein 8.66 H NT-Pro-B Natriuret Pep Total Protein 7.3 Albumin 3.4 Globulin 3.9 Albumin/Globulin Ratio 0.9 Procalcitonin Urine Color Urine Appearance Urine pH Ur Specific [place] Urine Protein Urine Glucose (UA) Urine Ketones Urine Blood Urine Nitrite Urine Bilirubin Urine Urobilinogen Ur Leukocyte Esterase Urine WBC (Auto) Urine RBC (Auto) U Hyaline Cast (Auto) U Epithel Cells (Auto) Urine Bacteria (Auto) Nasal Screen MRSA (PCR) Stl C. diff Tox B Gene Hepatitis C Ab Screen Influ A Molecular Assay Influ B Molecular Assay Urine Legionella Ag Medications Administered Current Inpatient Medications Acetaminophen (Acetaminophen 325 Mg Tab) 650 mg PO Q4H PRN PRN Reason: Pain or Fever Stop: 01/04/21 16:58 Last Admin: 12/06/20 08:43 Dose: 650 mg Documented by: Al Hydrox/Mg Hydrox/Simethicone (Aluminum/Magnesium Susp 30 Ml Udc) 15 ml PO Q4H PRN PRN Reason: Dyspepsia Stop: 01/04/21 16:58 Albuterol (Albuterol Hfa 8 Gm Inhaler) 2 puffs INH QID PRN PRN Reason: sob/wheezing Stop: 01/04/21 16:58 Doxycycline Hyclate (Doxycycline Hyclate 100 Mg Cap) 100 mg PO BID [facility] Stop: 12/12/20 20:59 Last Admin: 12/06/20 08:22 Dose: 100 mg Documented by: Fluticasone/Vilanterol (Fluticasone/Vilanterol 200/25mcg 14 Puffs/Inhaler) 1 puffs INH QPM [facility]; Protocol Stop: 01/04/21 20:59 Last Admin: 12/05/20 20:22 Dose: 1 puffs Documented by: Hydralazine HCl (Hydralazine 10 Mg Tab) 10 mg PO TID [facility] Stop: 01/04/21 20:59 Last Admin: 12/06/20 08:22 Dose: 10 mg Documented by: Hydralazine HCl (Hydralazine Hcl 20 Mg/Ml Vial) 5 mg IV Q4H PRN PRN Reason: sBP > 180 Stop: 01/04/21 20:41 Ceftriaxone Sodium 2,000 mg/ (Dextrose) 70 mls @ 100 mls/hr IV Q24H [facility]; Protocol Stop: 12/12/20 13:59 Dexamethasone 6 mg/ Syringe 1.5 mls @ 1 mls/min IV QAM [facility] Stop: 12/13/20 08:59 Last Admin: 12/06/20 08:20 Dose: 1 mls/min Documented by: Olmesartan (Olmesartan Medoxomil 40 Mg Tab) 40 mg PO QAM [facility] Stop: 01/05/21 08:59 Last Admin: 12/06/20 08:21 Dose: 40 mg Documented by: Ondansetron HCl (Ondansetron Inj 2 Mg/Ml 2 Ml Vial) 4 mg IV Q6H PRN PRN Reason: Nausea Stop: 01/04/21 16:58 Rivaroxaban (Rivaroxaban 20 Mg Tab) 20 mg PO PM [facility] Stop: 01/04/21 20:59 Last Admin: 12/05/20 20:23 Dose: 20 mg Documented by: PG Care Time/CCT Total # of Minutes Spent Total Time Spent with Patient: Total time spent is greater than 50% in coordination of care (as documented) at patient's floor/unit and/or counseling patient: Coding Level of Care Code 36497 Subseq Hosp Care Lvl 3 Diagnoses Multifocal pneumonia J18.9 COVID-19 U07.1 Hypoxia R09.02 Hypertension I10 Paroxysmal atrial fibrillation I48.0 Asthma J45.909 DVT prophylaxis Z29.9
[2020-12-06] MEDS: cefTRIAXone SODIUM 2,000 MG in DEXTROSE 5% 50 ML IV SCH (14:09)
[2020-12-06] MEDS: RIVAROXABAN 20 MG TAB PO SCH (20:33)
[2020-12-06] MEDS: FLUTICASONE/VILANTEROL 200/25MCG 14 PUFFS/INHALER INH SCH (20:34)
[2020-12-07] MEDS: ACETAMINOPHEN 325 MG TAB PO PRN (07:43)
[2020-12-07] MEDS: dexAMETHasone 6 MG in SYRINGE 0 ML IV SCH (08:51)
[2020-12-07] MEDS: DOXYCYCLINE HYCLATE 100 MG CAP PO SCH ×2 (08:53→20:17)
[2020-12-07] MEDS: hydrALAZINE 10 MG TAB PO SCH ×3 (08:53→20:17)
[2020-12-07] MEDS: OLMESARTAN MEDOXOMIL 40 MG TAB PO SCH (08:53)
--- NOTE | 2020-12-07 10:08 | Hospitalist Progress Note ---
Date of Service December 07, 2020 Assessment & Plan (1) Multifocal pneumonia: Failure of azithromycin as an outpatient. Elevated procalcitonin with worsening of illness 12 days previously suggest secondary bacterial pneumonia. treat with ceftriaxone and doxycycline x 7 days WBC normal, no fever order flutter valve to mobilize sputum CXR 12/07 with progression of infiltrates and oxygen requirements up to 5L watch closely for any deterioration, could get worse before she gets better (2) COVID-19: 3 days of prednisone 40 mg prior to admission. treat with dexamethasone 6 mg IV daily Given diagnosis 12 days ago would not recommend remdesivir or convalescent plasma. Covid isolation precautions. (3) Hypoxia: Secondary to COVID-19 pneumonia and multifocal secondary bacterial pneumonia as above. Aim O2 sats > 90%. she is up to 5L NC, sats 90-92%, but no distress or increased work of breathing, she actually says she feels better (4) Hypertension: Continue on her usual regimen hydralazine 10mg PO TID, Olmesartan 40mg PO daily, BP elevated at times Will hold her usual HCTZ 12.5mg PO given illness Hydralazine 5mg q4h PRN for sBP > 180. (5) Paroxysmal atrial fibrillation: Monitor on telemetry for recurrence, she is in sinus rhythm Anticoagulation with Xarelto. On no rate controlling or antiarrhythmics. (6) Asthma: No acute exacerbation. Albuterol PRN for shortness of breath, wheezing or cough Continue Advair Diskus 1 inhalation twice daily. (7) DVT prophylaxis: Xarelto 20mg PO daily (8) Morbid obesity: Admission and Anticipated Discharge Date Admission Date: December 05, 2020 Subjective patient says she feels a little better today, more energy, no fever still feels short of breath, has a cough with some sputum requiring 5L NC today, checked CXR, shows progression of infiltrates eating better today WBC normal, Cr and electrolytes stable discussed with her that she will be here a few days Review of Systems Review of Systems: All systems reviewed & are unremarkable except as noted in Subjective Constitutional: + fatigue and + weakness; no fever, no chills and no sweats Respiratory: + cough, + dyspnea and + dyspnea on exertion Cardiovascular: no chest pain and no edema Gastrointestinal: no abdominal pain, no nausea, no vomiting, no constipation and no diarrhea/loose stools Physical Exam Constitutional: WD/WN, vitals as above + obese; no acute distress Neck: trachea midline, no thyromegaly Respiratory: normal respiratory effort, lungs clear to auscultation no respiratory distress and no labored breathing Cardiovascular: RRR, no murmur, no edema Gastrointestinal (Abdomen): normal bowel sounds, soft, nontender, no hepatosplenomegaly Musculoskeletal: no cyanosis or clubbing, extremities motor strength 5/5 Skin: no rashes, warm and dry Neurologic: patellar DTR's 2+ bilat, sensation intact and PERRL, EOMI, accommodation nl, no face palsy, no dysarthria Psychiatric: A+Ox3, euthymic affect Lymphatic: no cervical or axillary lymphadenopathy Results & Data Results & Data ([facility]) Vital Signs (Past 12 Hours) Vital Signs Temp Pulse Resp BP Pulse Ox 12/07/20 07:53 91 12/07/20 07:48 38.0 C H 95 H 22 175/90 H 89 L 12/07/20 04:30 156/96 H 12/07/20 03:18 37.2 C 72 20 156/108 H 94 12/06/20 23:41 37.5 C 73 20 143/94 H 90 Laboratory Results Laboratory Results - last 24 hr 12/07/20 12/07/20 10:29 10:29 WBC 7.67 RBC 4.39 Hgb 13.8 Hct 41.8 MCV 95.2 MCH 31.4 MCHC 33.0 RDW Std Deviation 48.5 H RDW Coeff of Evy 13.9 Plt Count 157 MPV 12.4 H Immature Gran % (Auto) 1.6 Neut % (Auto) 74.8 Lymph % (Auto) 8.3 [place] % (Auto) 15.0 Eos % (Auto) 0.0 Baso % (Auto) 0.3 Neut # (Auto) 5.74 Lymph # (Auto) 0.64 L [place] # (Auto) 1.15 H Eos # (Auto) 0.00 Baso # (Auto) 0.02 Immature Gran # (Auto) 0.12 H Sodium 138 Potassium 3.3 L Chloride 102 Carbon Dioxide 33 H Anion Gap 3.0 BUN 18 Creatinine 1.06 Est Cr Clr Drug Dosing 72.8 Est GFR ( Amer) 63.8 Est GFR (Non-Af Amer) 55.1 BUN/Creatinine Ratio 16.8 Glucose 119 H Calcium 8.7 Medications Administered Current Inpatient Medications Acetaminophen (Acetaminophen 325 Mg Tab) 650 mg PO Q4H PRN PRN Reason: Pain or Fever Stop: 01/04/21 16:58 Last Admin: 12/07/20 07:43 Dose: 650 mg Documented by: Al Hydrox/Mg Hydrox/Simethicone (Aluminum/Magnesium Susp 30 Ml Udc) 15 ml PO Q4H PRN PRN Reason: Dyspepsia Stop: 01/04/21 16:58 Albuterol (Albuterol Hfa 8 Gm Inhaler) 2 puffs INH QID PRN PRN Reason: sob/wheezing Stop: 01/04/21 16:58 Doxycycline Hyclate (Doxycycline Hyclate 100 Mg Cap) 100 mg PO BID [facility] Stop: 12/12/20 20:59 Last Admin: 12/07/20 08:53 Dose: 100 mg Documented by: Fluticasone/Vilanterol (Fluticasone/Vilanterol 200/25mcg 14 Puffs/Inhaler) 1 puffs INH QPM [facility]; Protocol Stop: 01/04/21 20:59 Last Admin: 12/06/20 20:34 Dose: 1 puffs Documented by: Hydralazine HCl (Hydralazine 10 Mg Tab) 10 mg PO TID [facility] Stop: 01/04/21 20:59 Last Admin: 12/07/20 14:32 Dose: 10 mg Documented by: Hydralazine HCl (Hydralazine Hcl 20 Mg/Ml Vial) 5 mg IV Q4H PRN PRN Reason: sBP > 180 Stop: 01/04/21 20:41 Last Admin: 12/07/20 03:39 Dose: 5 mg Documented by: Ceftriaxone Sodium 2,000 mg/ (Dextrose) 70 mls @ 100 mls/hr IV Q24H [facility]; Protocol Stop: 12/12/20 13:59 Last Admin: 12/07/20 14:36 Dose: 70 mls/hr Documented by: Dexamethasone 6 mg/ Syringe 1.5 mls @ 1 mls/min IV QAM [facility] Stop: 12/13/20 08:59 Last Admin: 12/07/20 08:51 Dose: 1 mls/min Documented by: Loperamide HCl (Loperamide Hcl 2 Mg Cap) 2 mg PO Q6 PRN PRN Reason: Diarrhea Stop: 01/05/21 10:44 Olmesartan (Olmesartan Medoxomil 40 Mg Tab) 40 mg PO QAM [facility] Stop: 01/05/21 08:59 Last Admin: 12/07/20 08:53 Dose: 40 mg Documented by: Ondansetron HCl (Ondansetron Inj 2 Mg/Ml 2 Ml Vial) 4 mg IV Q6H PRN PRN Reason: Nausea Stop: 01/04/21 16:58 Rivaroxaban (Rivaroxaban 20 Mg Tab) 20 mg PO PM [facility] Stop: 01/04/21 20:59 Last Admin: 12/06/20 20:33 Dose: 20 mg Documented by: PG Care Time/CCT Total # of Minutes Spent Total Time Spent with Patient: Total time spent is greater than 50% in coordination of care (as documented) at patient's floor/unit and/or counseling patient: Coding Level of Care Code 40018 Subseq Hosp Care Lvl 3 Diagnoses Multifocal pneumonia J18.9 COVID-19 U07.1 Hypoxia R09.02 Hypertension I10 Paroxysmal atrial fibrillation I48.0 Asthma J45.909 DVT prophylaxis Z29.9 Morbid obesity E66.01
[2020-12-07 10:47] LABS: Basophils # (auto) 0.02 K/uL (0-0.2); Basophils % (auto) 0.3 %; Hematocrit (blood only) 41.8 % (37-47); Hemoglobin 13.8 g/dL (12.0-16.0); Immature Granulocytes # (auto) 0.12 K/uL (0.00-0.02); Immature Granulocytes % (auto) 1.6 %; Lymphocytes # (auto) 0.64 K/uL (1.2-3.4); Lymphocytes % (auto) 8.3 %; Mean Corpuscular Hemoglobin 31.4 pg (25-34); Mean Corpuscular Volume 95.2 fL (80-100); Mean Platelet Volume 12.4 fL (7.4-10.4); Monocytes # (auto) 1.15 K/uL (0.11-0.59); Neutrophils # (auto) 5.74 K/uL (1.4-6.5); Neutrophils % (auto) 74.8 %; Platelet Count 157 K/uL (130-400); RDW Coefficient of Variation 13.9 % (11.5-14.5); RDW Standard Deviation 48.5 fL (36.4-46.3); Red Blood Count 4.39 M/uL (4.2-5.4); White Blood Count 7.67 K/uL (4.8-10.8)
--- NOTE | 2020-12-07 10:51 | XRay Report ---
XR chest 1V portable HISTORY: 65 years-old Female worsening hypoxia acute hypoxia COMPARISON: Chest radiograph 12/05/2020 TECHNIQUE: Portable AP view of the chest FINDINGS: Cardiac silhouette is enlarged. Calcified plaque of the thoracic aorta. Bilateral airspace opacities have mildly progressed from comparison. No pneumothorax or pleural effusion. Degenerative changes of the shoulders and spine. IMPRESSION: Mildly progressed multifocal airspace opacities suggests worsening pneumonia. ACT 112: Negative or not required by law. The above report was generated using voice recognition software. It may contain grammatical, syntax o r spelling errors. Electronically signed by: Cassius Velazquez M.D. 12/07/2020 10:49 AM
[2020-12-07 11:03] LABS: BUN Creatinine Ratio 16.8 (10-20); Calcium 8.7 mg/dl (8.5-10.1); Creatinine Clr Calc Pharmacy 72.8 ml/min; Est GFR (African American) 63.8; Est GFR (Non-African American) 55.1; Potassium 3.3 mmol/L (3.5-5.1)
[2020-12-07] MEDS: cefTRIAXone SODIUM 2,000 MG in DEXTROSE 5% 50 ML IV SCH (14:36)
[2020-12-07] MEDS: RIVAROXABAN 20 MG TAB PO SCH (20:17)
[2020-12-07] MEDS: FLUTICASONE/VILANTEROL 200/25MCG 14 PUFFS/INHALER INH SCH (20:18)
[2020-12-08 05:41] LABS: Platelet Count 171 K/uL (130-400)
[2020-12-08 06:32] LABS: Basophils # (auto) 0.02 K/uL (0-0.2); Basophils % (auto) 0.3 %; Hematocrit (blood only) 42.4 % (37-47); Immature Granulocytes # (auto) 0.08 K/uL (0.00-0.02); Immature Granulocytes % (auto) 1.1 %; Lymphocytes # (auto) 0.62 K/uL (1.2-3.4); Lymphocytes % (auto) 8.9 %; Mean Corpuscular Hemoglobin 31.5 pg (25-34); Mean Corpuscular Volume 95.5 fL (80-100); Monocytes # (auto) 1.12 K/uL (0.11-0.59); Monocytes % (auto) 16.1 %; Neutrophils # (auto) 5.13 K/uL (1.4-6.5); Neutrophils % (auto) 73.6 %; RDW Coefficient of Variation 13.9 % (11.5-14.5); RDW Standard Deviation 48.9 fL (36.4-46.3); Red Blood Count 4.44 M/uL (4.2-5.4); White Blood Count 6.97 K/uL (4.8-10.8)
[2020-12-08 06:44] LABS: Calcium 8.6 mg/dl (8.5-10.1); Creatinine Clr Calc Pharmacy 79.7 ml/min; Est GFR (Non-African American) 61.3
[2020-12-08] MEDS: OLMESARTAN MEDOXOMIL 40 MG TAB PO SCH (08:48)
[2020-12-08] MEDS: dexAMETHasone 6 MG in SYRINGE 0 ML IV SCH (08:48)
[2020-12-08] MEDS: hydrALAZINE 10 MG TAB PO SCH ×3 (08:49→21:13)
[2020-12-08] MEDS: DOXYCYCLINE HYCLATE 100 MG CAP PO SCH ×2 (08:49→21:13)
[2020-12-08] MEDS: cefTRIAXone SODIUM 2,000 MG in DEXTROSE 5% 50 ML IV SCH (13:46)
--- NOTE | 2020-12-08 16:02 | Hospitalist Progress Note ---
Date of Service December 08, 2020 Assessment & Plan (1) Multifocal pneumonia: Failure of azithromycin as an outpatient. Elevated procalcitonin with worsening of illness 12 days previously suggest secondary bacterial pneumonia. treat with ceftriaxone and doxycycline x 7 days, today is day 4 WBC normal, no fever today, last fever was 12/07 in the morning order flutter valve to mobilize sputum, starting to help CXR 12/07 with progression of infiltrates went from requiring 5L to high flow in the past 24 hours guarded prognosis, concerned she could get even worse for now she is breathing comfortably on her side updated her over phone on 12/08, he understands that she might get worse, to the point she would need intubation (2) COVID-19: 3 days of prednisone 40 mg prior to admission. treat with dexamethasone 6 mg IV daily, day 4 today Given diagnosis 12 days ago would not recommend remdesivir or convalescent plasma. Covid isolation precautions. (3) Hypoxia: acute respiratory failure with hypoxia Secondary to COVID-19 pneumonia and multifocal secondary bacterial pneumonia as above. Aim O2 sats > 90%. she went from 5L low flow to high flow in 24 hours currently stable on 35L and 70% FiO2, RR around 20, not in distress, laying on her side discussed laying prone, she cannot tolerate this guarded prognosis, she may progress to needing intubated (4) Hypertension: Continue on her usual regimen hydralazine 10mg PO TID, Olmesartan 40mg PO daily, BP elevated at times Will hold her usual HCTZ 12.5mg PO given illness Hydralazine 5mg q4h PRN for sBP > 180. (5) Paroxysmal atrial fibrillation: Monitor on telemetry for recurrence, she is in sinus rhythm Anticoagulation with Xarelto. On no rate controlling or antiarrhythmics. (6) Asthma: No acute exacerbation. Albuterol PRN for shortness of breath, wheezing or cough Continue Advair Diskus 1 inhalation twice daily. (7) DVT prophylaxis: Xarelto 20mg PO daily (8) Morbid obesity: (9) Hypokalemia: low at 3.2, add KCl 20 TID Admission and Anticipated Discharge Date Admission Date: December 05, 2020 Subjective patient requiring more oxygen today, up to 15L high flow from the wall had a bad coughing spell, flutter valve, desaturated after walking back from the bathroom she is laying on her side, she tried to lay prone but was not successful no fever today, cough is a little more productive with the flutter valve eating okay but not great labs show WBC of 6k, Hb normal, K low at 3.2, Cr 0.[address] her on Vapotherm as she was 88% on 15L in the afternoon saturations up to 91% on 35L and 70% FiO2 breathing comfortably on her side I updated her over the phone, discussed that she could get worse and may require intubation hopeful that she can hold her own on high flow and then start to recover Review of Systems Review of Systems: All systems reviewed & are unremarkable except as noted in Subjective Physical Exam Constitutional: WD/WN, vitals as above + obese; no acute distress Neck: trachea midline, no thyromegaly Respiratory: + cough and + tachypneic; no respiratory distress and no labored breathing Auscultation: lungs clear to auscultation bilaterally and + diminished lung sounds Cardiovascular: RRR, no murmur, no edema Gastrointestinal (Abdomen): normal bowel sounds, soft, nontender, no hepatosplenomegaly Musculoskeletal: no cyanosis or clubbing, extremities motor strength 5/5 Skin: no rashes, warm and dry Neurologic: patellar DTR's 2+ bilat, sensation intact and PERRL, EOMI, accommodation nl, no face palsy, no dysarthria Psychiatric: A+Ox3, euthymic affect Lymphatic: no cervical or axillary lymphadenopathy Results & Data Results & Data ([facility]) Vital Signs (Past 12 Hours) Vital Signs Temp Pulse Pulse Resp BP Pulse Ox 12/08/20 15:45 36.6 C 66 20 123/84 90 12/08/20 11:52 36.8 C 74 20 110/77 90 12/08/20 08:30 80 12/08/20 07:37 37.4 C 87 22 148/92 H 91 12/08/20 07:32 85 L 12/08/20 07:30 22 85 L 12/08/20 04:18 36.8 C 76 18 141/92 H 93 Laboratory Results Laboratory Results - last 24 hr 12/08/20 12/08/20 12/08/20 05:19 05:19 07:03 WBC 6.97 RBC 4.44 Hgb 14.0 Hct 42.4 MCV 95.5 MCH 31.5 MCHC 33.0 RDW Std Deviation 48.9 H RDW Coeff of Evy 13.9 Plt Count 171 MPV 12.0 H Immature Gran % (Auto) 1.1 Neut % (Auto) 73.6 Lymph % (Auto) 8.9 Iron % (Auto) 16.1 Eos % (Auto) 0.0 Baso % (Auto) 0.3 Neut # (Auto) 5.13 Lymph # (Auto) 0.62 L Iron # (Auto) 1.12 H Eos # (Auto) 0.00 Baso # (Auto) 0.02 Immature Gran # (Auto) 0.08 H Sodium 137 Potassium 3.2 L Chloride 101 Carbon Dioxide 32 Anion Gap 4.0 BUN 17 Creatinine 0.97 Est Cr Clr Drug Dosing 79.7 Est GFR ( Amer) 71.0 Est GFR (Non-Af Amer) 61.3 BUN/Creatinine Ratio 18.0 Glucose 104 H Calcium 8.6 Medications Administered Current Inpatient Medications Acetaminophen (Acetaminophen 325 Mg Tab) 650 mg PO Q4H PRN PRN Reason: Pain or Fever Stop: 01/04/21 16:58 Last Admin: 12/07/20 07:43 Dose: 650 mg Documented by: Al Hydrox/Mg Hydrox/Simethicone (Aluminum/Magnesium Susp 30 Ml Udc) 15 ml PO Q4H PRN PRN Reason: Dyspepsia Stop: 01/04/21 16:58 Albuterol (Albuterol Hfa 8 Gm Inhaler) 2 puffs INH QID PRN PRN Reason: sob/wheezing Stop: 01/04/21 16:58 Doxycycline Hyclate (Doxycycline Hyclate 100 Mg Cap) 100 mg PO BID [facility] Stop: 12/12/20 20:59 Last Admin: 12/08/20 08:49 Dose: 100 mg Documented by: Fluticasone/Vilanterol (Fluticasone/Vilanterol 200/25mcg 14 Puffs/Inhaler) 1 puffs INH QPM [facility]; Protocol Stop: 01/04/21 20:59 Last Admin: 12/07/20 20:18 Dose: 1 puffs Documented by: Hydralazine HCl (Hydralazine 10 Mg Tab) 10 mg PO TID [facility] Stop: 01/04/21 20:59 Last Admin: 12/08/20 13:46 Dose: 10 mg Documented by: Hydralazine HCl (Hydralazine Hcl 20 Mg/Ml Vial) 5 mg IV Q4H PRN PRN Reason: sBP > 180 Stop: 01/04/21 20:41 Last Admin: 12/07/20 03:39 Dose: 5 mg Documented by: Ceftriaxone Sodium 2,000 mg/ (Dextrose) 70 mls @ 100 mls/hr IV Q24H [facility]; Protocol Stop: 12/12/20 13:59 Last Infusion: 12/08/20 14:34 Dose: Infused Documented by: Dexamethasone 6 mg/ Syringe 1.5 mls @ 1 mls/min IV QAM [facility] Stop: 12/13/20 08:59 Last Admin: 12/08/20 08:48 Dose: 1 mls/min Documented by: Loperamide HCl (Loperamide Hcl 2 Mg Cap) 2 mg PO Q6 PRN PRN Reason: Diarrhea Stop: 01/05/21 10:44 Olmesartan (Olmesartan Medoxomil 40 Mg Tab) 40 mg PO QAM [facility] Stop: 01/05/21 08:59 Last Admin: 12/08/20 08:48 Dose: 40 mg Documented by: Ondansetron HCl (Ondansetron Inj 2 Mg/Ml 2 Ml Vial) 4 mg IV Q6H PRN PRN Reason: Nausea Stop: 01/04/21 16:58 Rivaroxaban (Rivaroxaban 20 Mg Tab) 20 mg PO PM [facility] Stop: 01/04/21 20:59 Last Admin: 12/07/20 20:17 Dose: 20 mg Documented by: PG Care Time/CCT Total # of Minutes Spent Total Time Spent with Patient: Total time spent is greater than 50% in coordination of care (as documented) at patient's floor/unit and/or counseling patient: Coding Level of Care Code 72458 Subseq Hosp Care Lvl 3 Diagnoses Multifocal pneumonia J18.9 COVID-19 U07.1 Hypoxia R09.02 Hypertension I10 Paroxysmal atrial fibrillation I48.0 Asthma J45.909 DVT prophylaxis Z29.9 Morbid obesity E66.01 Hypokalemia E87.6
[2020-12-08] MEDS: POTASSIUM CHLORIDE CRTAB 20 MEQ TABCR PO SCH (21:13)
[2020-12-08] MEDS: RIVAROXABAN 20 MG TAB PO SCH (21:13)
[2020-12-08] MEDS: FLUTICASONE/VILANTEROL 200/25MCG 14 PUFFS/INHALER INH SCH (21:14)
[2020-12-09 07:52] LABS: Creatinine Clr Calc Pharmacy 101.1 ml/min; Est GFR (African American) 93.9
--- NOTE | 2020-12-09 08:45 | Hospitalist Progress Note ---
Date of Service December 09, 2020 Assessment & Plan (1) Multifocal pneumonia: Failure of azithromycin as an outpatient. Elevated procalcitonin with worsening of illness 12 days previously suggest secondary bacterial pneumonia. treat with ceftriaxone and doxycycline x 7 days, WBC normal, last fever was 12/07 in the morning flutter valve to mobilize sputum CXR 12/07 with progression of infiltrates High flow now required pt is on vapo therm (2) COVID-19: 3 days of prednisone 40 mg prior to admission. treat with dexamethasone 6 mg IV daily, day 4 today Given diagnosis almost 2 weeks ago would not recommend remdesivir or convalescent plasma. Covid isolation precautions. (3) Hypoxia: acute respiratory failure with hypoxia Secondary to COVID-19 pneumonia and multifocal secondary bacterial pneumonia as above. Aim O2 sats > 90%. she went from 5L low flow to high flow in 24 hours currently stable on 35L and 70% FiO2, RR around 20, not in distress, laying on her side discussed laying prone, she cannot tolerate this guarded prognosis, she may progress to needing intubated (4) Hypertension: Continue on her usual regimen hydralazine 10mg PO TID, Olmesartan 40mg PO daily, BP elevated at times Will hold her usual HCTZ 12.5mg PO given illness Hydralazine 5mg q4h PRN for sBP > 180. (5) Paroxysmal atrial fibrillation: Monitor on telemetry for recurrence, she is in sinus rhythm Anticoagulation with Xarelto. On no rate controlling or antiarrhythmics. (6) Asthma: No acute exacerbation. Albuterol PRN for shortness of breath, wheezing or cough Continue Advair Diskus 1 inhalation twice daily. (7) DVT prophylaxis: Xarelto 20mg PO daily (8) Morbid obesity: (9) Hypokalemia: replete add KCl 20 TID, will check potassium and magnesium in am 12/10/20 Admission and Anticipated Discharge Date Admission Date: December 05, 2020 Subjective Pt remains on vapotherm, she is overall stating she feels improved, she still has fair oxygen requirements does have some non productive cough Review of Systems Review of Systems: Mild distress and fatigue no headache, blurry or double vision no speech or swallowing issues no chest pain, pressure or palpitations persistent shortness of breath, non productive cough no abdominal pain, nausea or vomiting, diarrhea or constipation no dysuria, hematuria or frequency no focal joint pain or swelling no back pain, CVA tenderness or radicular pain no bruising, bleeding or rashes no focal signs of weakness or numbness or altered sensation no complaints of anxiety or depression.. Physical Exam Physical Exam: The patient appeared well nourished and normally developed. She is only in mild respiratory distress during my examination Vital signs as documented. Head exam is normocephalic atraumatic no scleral icterus Neck is without JVD, thyromegaly, or carotid bruits. Lungs are bibasilar rales Cardiac exam, Rhythm is regular.. No murmurs, rubs or gallops. Abdominal exam reveals normal bowel sounds, soft non tender, no masses Extremities are nonedematous and both pedal pulses are present Neurologic exam is alert and oriented, no focal loss of strength or sensation Skin is without bruises or rashes Psychologically is without concerns for anxiety or depression. Results & Data Results & Data ([facility]) Vital Signs (Past 12 Hours) Vital Signs Temp Pulse Resp BP Pulse Ox 12/09/20 07:24 64 18 89 L 12/09/20 03:35 98.1 F 62 22 160/82 H 94 12/09/20 03:33 60 18 93 12/08/20 23:18 98.6 F 66 20 127/78 93 12/08/20 22:49 61 22 94 PG Care Time/CCT Total # of Minutes Spent Total Time Spent with Patient: Total time spent is greater than 50% in coordination of care (as documented) at patient's floor/unit and/or counseling patient: Coding Level of Care Code 74795 Subseq Hosp Care Lvl 3 Diagnoses Multifocal pneumonia J18.9 COVID-19 U07.1 Hypoxia R09.02 Hypertension I10 Paroxysmal atrial fibrillation I48.0 Asthma J45.909 DVT prophylaxis Z29.9 Morbid obesity E66.01 Hypokalemia E87.6
[2020-12-09] MEDS: POTASSIUM CHLORIDE CRTAB 20 MEQ TABCR PO SCH ×3 (09:07→20:55)
[2020-12-09] MEDS: DOXYCYCLINE HYCLATE 100 MG CAP PO SCH ×2 (09:08→20:55)
[2020-12-09] MEDS: hydrALAZINE 10 MG TAB PO SCH ×3 (09:09→20:54)
[2020-12-09] MEDS: dexAMETHasone 6 MG in SYRINGE 0 ML IV SCH (09:09)
[2020-12-09] MEDS: OLMESARTAN MEDOXOMIL 40 MG TAB PO SCH (09:09)
[2020-12-09] MEDS: cefTRIAXone SODIUM 2,000 MG in DEXTROSE 5% 50 ML IV SCH (14:24)
--- NOTE | 2020-12-09 18:14 | Hospitalist Progress Note ---
Date of Service December 09, 2020 Assessment & Plan (1) Multifocal pneumonia: Failure of azithromycin as an outpatient. Elevated procalcitonin with worsening of illness 12 days previously suggest secondary bacterial pneumonia. treat with ceftriaxone and doxycycline x 7 days, WBC normal, last fever was 12/07 in the morning flutter valve to mobilize sputum CXR 12/07 with progression of infiltrates, Possible pneumonia due to coronavirus disease 2019 High flow now required pt is on vapo therm (2) COVID-19: 3 days of prednisone 40 mg prior to admission. treat with dexamethasone 6 mg IV daily, day 4 today Given diagnosis almost 2 weeks ago would not recommend remdesivir or convalescent plasma. Covid isolation precautions. (3) Hypoxia: acute respiratory failure with hypoxia Secondary to COVID-19 pneumonia and multifocal secondary bacterial pneumonia as above. Aim O2 sats > 90%. she went from 5L low flow to high flow in 24 hours currently stable on 35L and 70% FiO2, RR around 20, not in distress, laying on her side discussed laying prone, she cannot tolerate this guarded prognosis, she may progress to needing intubated (4) Hypertension: Continue on her usual regimen hydralazine 10mg PO TID, Olmesartan 40mg PO daily, BP elevated at times Will hold her usual HCTZ 12.5mg PO given illness Hydralazine 5mg q4h PRN for sBP > 180. (5) Paroxysmal atrial fibrillation: Monitor on telemetry for recurrence, she is in sinus rhythm Anticoagulation with Xarelto. On no rate controlling or antiarrhythmics. (6) Asthma: No acute exacerbation. Albuterol PRN for shortness of breath, wheezing or cough Continue Advair Diskus 1 inhalation twice daily. (7) DVT prophylaxis: Xarelto 20mg PO daily (8) Morbid obesity: (9) Hypokalemia: replete add KCl 20 TID, will check potassium and magnesium in am 12/10/20 Admission and Anticipated Discharge Date Admission Date: December 05, 2020 Results & Data Results & Data ([facility]) Vital Signs (Past 12 Hours) Vital Signs Temp Pulse Pulse Resp BP Pulse Ox 12/09/20 15:54 64 12/09/20 15:06 98.2 F 64 22 155/92 H 93 12/09/20 14:46 62 20 93 12/09/20 11:20 64 18 94 12/09/20 11:08 98.1 F 68 20 143/88 H 93 12/09/20 07:24 64 18 89 L PG Care Time/CCT Total # of Minutes Spent Total Time Spent with Patient: Total time spent is greater than 50% in coordination of care (as documented) at patient's floor/unit and/or counseling patient: Coding Level of Care Code None Diagnoses Multifocal pneumonia J18.9 COVID-19 U07.1 Hypoxia R09.02 Hypertension I10 Paroxysmal atrial fibrillation I48.0 Asthma J45.909 DVT prophylaxis Z29.9 Morbid obesity E66.01 Hypokalemia E87.6
[2020-12-09] MEDS: RIVAROXABAN 20 MG TAB PO SCH (20:55)
[2020-12-09] MEDS: LOPERAMIDE HCL 2 MG CAP PO PRN (20:59)
[2020-12-10] MEDS: ALBUTEROL HFA 8 GM INHALER INH PRN ×2 (04:23→09:34)
[2020-12-10] MEDS: FLUTICASONE/VILANTEROL 200/25MCG 14 PUFFS/INHALER INH SCH ×2 (04:56→19:58)
[2020-12-10] MEDS: dexAMETHasone 6 MG in SYRINGE 0 ML IV SCH (09:00)
[2020-12-10] MEDS: hydrALAZINE 10 MG TAB PO SCH ×3 (09:01→19:54)
[2020-12-10] MEDS: OLMESARTAN MEDOXOMIL 40 MG TAB PO SCH (09:01)
[2020-12-10] MEDS: DOXYCYCLINE HYCLATE 100 MG CAP PO SCH ×2 (09:02→19:54)
[2020-12-10] MEDS: POTASSIUM CHLORIDE CRTAB 20 MEQ TABCR PO SCH ×2 (09:02→13:38)
[2020-12-10] MEDS: cefTRIAXone SODIUM 2,000 MG in DEXTROSE 5% 50 ML IV SCH (13:35)
--- NOTE | 2020-12-10 16:55 | Hospitalist Progress Note ---
Date of Service December 10, 2020 Assessment & Plan (1) Multifocal pneumonia: Failure of azithromycin as an outpatient. Elevated procalcitonin with worsening of illness 12 days previously suggest secondary bacterial pneumonia. treat with ceftriaxone and doxycycline x 7 days, WBC normal, last fever was 12/07 in the morning flutter valve to mobilize sputum CXR 12/07 with progression of infiltrates, Possible pneumonia due to coronavirus disease 2019 High flow now required pt is on vapo therm but has had some ability to taper oxygen support (2) COVID-19: 3 days of prednisone 40 mg prior to admission. treat with dexamethasone 6 mg IV daily, Given diagnosis almost 2 weeks ago would not recommend remdesivir or convalescent plasma. Covid isolation precautions. (3) Hypoxia: acute respiratory failure with hypoxia Secondary to COVID-19 pneumonia and multifocal secondary bacterial pneumonia as above. Aim O2 sats > 90%. she went from 5L low flow to high flow in 24 hours currently stable on 25L and 40% FiO2, not in distress, laying on her side as she cannot tolerate prone improving prognosis, lessening oxygen requirements (4) Hypertension: Continue on her usual regimen hydralazine 10mg PO TID, Olmesartan 40mg PO daily, BP elevated at times Will hold her usual HCTZ 12.5mg PO given illness Hydralazine 5mg q4h PRN for sBP > 180. (5) Paroxysmal atrial fibrillation: Monitor on telemetry for recurrence, she is in sinus rhythm Anticoagulation with Xarelto. On no rate controlling or antiarrhythmics. (6) Asthma: No acute exacerbation. Albuterol PRN for shortness of breath, wheezing or cough Continue Advair Diskus 1 inhalation twice daily. (7) DVT prophylaxis: Xarelto 20mg PO daily (8) Morbid obesity: (9) Hypokalemia: repletcheck potassium and magnesium in am 12/11/20 Admission and Anticipated Discharge Date Admission Date: December 05, 2020 Subjective Pt remains on vapotherm, she is overall stating she feels improved, she has had some reduction in oxygen requirements, does have some non productive cough encouraged by flutter valve Review of Systems Review of Systems: Mild distress and fatigue no headache, blurry or double vision no speech or swallowing issues no chest pain, pressure or palpitations persistent shortness of breath, non productive cough no abdominal pain, nausea or vomiting, diarrhea or constipation no dysuria, hematuria or frequency no focal joint pain or swelling no back pain, CVA tenderness or radicular pain no bruising, bleeding or rashes no focal signs of weakness or numbness or altered sensation no complaints of anxiety or depression.. Physical Exam Physical Exam: The patient appeared well nourished and normally developed. She is only in mild respiratory distress during my examination Vital signs as documented. Head exam is normocephalic atraumatic no scleral icterus Neck is without JVD, thyromegaly, or carotid bruits. Lungs are bibasilar rales Cardiac exam, Rhythm is regular.. No murmurs, rubs or gallops. Abdominal exam reveals normal bowel sounds, soft non tender, no masses Extremities are nonedematous and both pedal pulses are present Neurologic exam is alert and oriented, no focal loss of strength or sensation Skin is without bruises or rashes Psychologically is without concerns for anxiety or depression. Results & Data Results & Data ([facility]) Vital Signs (Past 12 Hours) Vital Signs Temp Pulse Pulse Resp BP Pulse Ox 12/10/20 15:34 69 18 91 12/10/20 15:23 98.1 F 70 19 130/85 93 12/10/20 11:29 62 18 92 12/10/20 11:11 97.9 F 61 18 130/73 94 12/10/20 09:37 64 22 93 12/10/20 09:35 66 22 94 12/10/20 07:53 61 18 93 12/10/20 07:48 60 12/10/20 07:44 98.4 F 61 18 135/81 93 PG Care Time/CCT Total # of Minutes Spent Total Time Spent with Patient: Total time spent is greater than 50% in coordination of care (as documented) at patient's floor/unit and/or counseling patient: Coding Level of Care Code 34152 Subseq Hosp Care Lvl 3 Diagnoses Multifocal pneumonia J18.9 COVID-19 U07.1 Hypoxia R09.02 Hypertension I10 Paroxysmal atrial fibrillation I48.0 Asthma J45.909 DVT prophylaxis Z29.9 Morbid obesity E66.01 Hypokalemia E87.6
[2020-12-10] MEDS: RIVAROXABAN 20 MG TAB PO SCH (19:54)
[2020-12-11] MEDS: LOPERAMIDE HCL 2 MG CAP PO PRN (00:50)
[2020-12-11 07:19] LABS: BUN Creatinine Ratio 16.1 (10-20); Calcium 9.4 mg/dl (8.5-10.1); Est GFR (African American) 83.3; Est GFR (Non-African American) 71.9
[2020-12-11] MEDS: dexAMETHasone 6 MG in SYRINGE 0 ML IV SCH (08:36)
[2020-12-11] MEDS: hydrALAZINE 10 MG TAB PO SCH ×3 (08:37→20:39)
[2020-12-11] MEDS: OLMESARTAN MEDOXOMIL 40 MG TAB PO SCH (08:37)
[2020-12-11] MEDS: POTASSIUM CHLORIDE CRTAB 20 MEQ TABCR PO SCH (08:37)
[2020-12-11] MEDS: DOXYCYCLINE HYCLATE 100 MG CAP PO SCH ×2 (08:37→20:40)
[2020-12-11] MEDS: cefTRIAXone SODIUM 2,000 MG in DEXTROSE 5% 50 ML IV SCH (14:38)
--- NOTE | 2020-12-11 17:59 | Hospitalist Progress Note ---
Date of Service December 11, 2020 Assessment & Plan (1) Multifocal pneumonia: Failure of azithromycin as an outpatient. Elevated procalcitonin with worsening of illness 12 days previously suggest secondary bacterial pneumonia. treat with ceftriaxone and doxycycline x 7 days, WBC normal, last fever was 12/07 in the morning flutter valve to mobilize sputum sputum culture is normal bryan CXR 12/07 with progression of infiltrates, Possible pneumonia due to coronavirus disease 2019 High flow now required pt is on vapo therm but has had some ability to taper oxygen support (2) COVID-19: 3 days of prednisone 40 mg prior to admission. treat with dexamethasone 6 mg IV daily, Given diagnosis almost 2 weeks ago did not administer remdesivir or convalescent plasma. Covid isolation precautions. (3) Hypoxia: acute respiratory failure with hypoxia Secondary to COVID-19 pneumonia and multifocal secondary bacterial pneumonia as above. Aim O2 sats > 90%. she went from 5L low flow to high flow in 24 hours currently stable on 25L and 40% FiO2, not in distress, laying on her side as she cannot tolerate prone improving prognosis, lessening oxygen requirements (4) Hypertension: Continue on her usual regimen hydralazine 10mg PO TID, Olmesartan 40mg PO daily, BP elevated at times Will hold her usual HCTZ 12.5mg PO given illness Hydralazine 5mg q4h PRN for sBP > 180. (5) Paroxysmal atrial fibrillation: Monitor on telemetry for recurrence, she is in sinus rhythm Anticoagulation with Xarelto. On no rate controlling or antiarrhythmics. (6) Asthma: No acute exacerbation. Albuterol PRN for shortness of breath, wheezing or cough Continue Advair Diskus 1 inhalation twice daily. (7) DVT prophylaxis: Xarelto 20mg PO daily (8) Morbid obesity: (9) Hypokalemia: repletcheck potassium and magnesium in am 12/11/20 Admission and Anticipated Discharge Date Admission Date: December 05, 2020 Subjective Pt remains on vapotherm, she feels improved, she continues reduction in oxygen requirements, does have some non productive cough encouraged by flutter valve Review of Systems Review of Systems: Mild distress and fatigue no headache, blurry or double vision no speech or swallowing issues no chest pain, pressure or palpitations persistent shortness of breath, non productive cough no abdominal pain, nausea or vomiting, diarrhea or constipation no dysuria, hematuria or frequency no focal joint pain or swelling no back pain, CVA tenderness or radicular pain no bruising, bleeding or rashes no focal signs of weakness or numbness or altered sensation no complaints of anxiety or depression.. Physical Exam Physical Exam: The patient appeared well nourished and normally developed. She is only in mild respiratory distress during my examination Vital signs as documented. Head exam is normocephalic atraumatic no scleral icterus Neck is without JVD, thyromegaly, or carotid bruits. Lungs are bibasilar rales Cardiac exam, Rhythm is regular.. No murmurs, rubs or gallops. Abdominal exam reveals normal bowel sounds, soft non tender, no masses Extremities are nonedematous and both pedal pulses are present Neurologic exam is alert and oriented, no focal loss of strength or sensation Skin is without bruises or rashes Psychologically is without concerns for anxiety or depression. Results & Data Results & Data ([facility]) Vital Signs (Past 12 Hours) Vital Signs Temp Pulse Pulse Resp BP Pulse Ox 12/11/20 16:02 56 L 18 94 12/11/20 15:50 98.2 F 69 20 132/88 91 12/11/20 14:47 95 12/11/20 11:22 97.9 F 65 20 126/75 88 L 12/11/20 11:17 72 19 90 12/11/20 10:54 91 12/11/20 08:02 97.9 F 59 L 20 157/87 H 90 12/11/20 07:45 60 21 93 12/11/20 07:00 64 PG Care Time/CCT Total # of Minutes Spent Total Time Spent with Patient: Total time spent is greater than 50% in coordination of care (as documented) at patient's floor/unit and/or counseling patient: Coding Level of Care Code 73307 Subseq Hosp Care Lvl 2 Diagnoses Multifocal pneumonia J18.9 COVID-19 U07.1 Hypoxia R09.02 Hypertension I10 Paroxysmal atrial fibrillation I48.0 Asthma J45.909 DVT prophylaxis Z29.9 Morbid obesity E66.01 Hypokalemia E87.6
[2020-12-11] MEDS: FLUTICASONE/VILANTEROL 200/25MCG 14 PUFFS/INHALER INH SCH (20:39)
[2020-12-11] MEDS: RIVAROXABAN 20 MG TAB PO SCH (20:40)
[2020-12-12] MEDS: dexAMETHasone 6 MG in SYRINGE 0 ML IV SCH (08:50)
[2020-12-12] MEDS: hydrALAZINE 10 MG TAB PO SCH ×3 (08:51→20:21)
[2020-12-12] MEDS: OLMESARTAN MEDOXOMIL 40 MG TAB PO SCH (08:51)
[2020-12-12] MEDS: DOXYCYCLINE HYCLATE 100 MG CAP PO SCH (08:51)
[2020-12-12] MEDS: POTASSIUM CHLORIDE CRTAB 20 MEQ TABCR PO SCH (08:52)
[2020-12-12 09:05] LABS: Hematocrit (blood only) 42.9 % (37-47); Hemoglobin 14.7 g/dL (12.0-16.0); Mean Corpuscular Hemoglobin 32.2 pg (25-34); Mean Corpuscular Hgb Conc 34.3 g/dL (32-36); Mean Corpuscular Volume 93.9 fL (80-100); Mean Platelet Volume 12.2 fL (7.4-10.4); Platelet Count 282 K/uL (130-400); RDW Coefficient of Variation 13.5 % (11.5-14.5); RDW Standard Deviation 46.5 fL (36.4-46.3); Red Blood Count 4.57 M/uL (4.2-5.4); White Blood Count 7.55 K/uL (4.8-10.8)
[2020-12-12 09:40] LABS: BUN Creatinine Ratio 18.5 (10-20); Calcium 9.3 mg/dl (8.5-10.1); Creatinine Clr Calc Pharmacy 90.1 ml/min; Est GFR (African American) 83.3; Est GFR (Non-African American) 71.9; Potassium 4.1 mmol/L (3.5-5.1)
--- NOTE | 2020-12-12 17:55 | Hospitalist Progress Note ---
Date of Service December 12, 2020 Assessment & Plan (1) Multifocal pneumonia: Failure of azithromycin as an outpatient. Elevated procalcitonin with worsening of illness 12 days previously suggest secondary bacterial pneumonia. treat with ceftriaxone and doxycycline x 7 days, WBC normal, last fever was 12/07 in the morning continues with flutter valve to mobilize sputum sputum culture is normal bryan CXR 12/07 with progression of infiltrates, Possible pneumonia due to coronavirus disease 2019 High flow now required pt is on vapo therm but has had some ability to taper oxygen support (2) COVID-19: 3 days of prednisone 40 mg prior to admission. treat with dexamethasone 6 mg IV daily, Given diagnosis almost 2 weeks ago did not administer remdesivir or convalescent plasma. Covid isolation precautions. (3) Hypoxia: acute respiratory failure with hypoxia Secondary to COVID-19 pneumonia and multifocal secondary bacterial pneumonia as above. Aim O2 sats > 90%. improving prognosis, lessening oxygen requirements (4) Hypertension: Continue on her usual regimen hydralazine 10mg PO TID, Olmesartan 40mg PO daily, BP elevated at times Will hold her usual HCTZ 12.5mg PO given illness Hydralazine 5mg q4h PRN for sBP > 180. (5) Paroxysmal atrial fibrillation: Monitor on telemetry for recurrence, she is in sinus rhythm Anticoagulation with Xarelto. On no rate controlling or antiarrhythmics. (6) Asthma: No acute exacerbation. Albuterol PRN for shortness of breath, wheezing or cough Continue Advair Diskus 1 inhalation twice daily. (7) DVT prophylaxis: Xarelto 20mg PO daily (8) Morbid obesity: (9) Hypokalemia: repletcheck potassium and magnesium in am 12/11/20 Admission and Anticipated Discharge Date Admission Date: December 05, 2020 Subjective on reducing doses of oxygen, she feels improved, lessening cough Review of Systems Review of Systems: Mild distress and fatigue no headache, blurry or double vision no speech or swallowing issues no chest pain, pressure or palpitations persistent shortness of breath, non productive cough no abdominal pain, nausea or vomiting, diarrhea or constipation no dysuria, hematuria or frequency no focal joint pain or swelling no back pain, CVA tenderness or radicular pain no bruising, bleeding or rashes no focal signs of weakness or numbness or altered sensation no complaints of anxiety or depression.. Physical Exam Physical Exam: The patient appeared well nourished and normally developed. She is only in mild respiratory distress during my examination Vital signs as documented. Head exam is normocephalic atraumatic no scleral icterus Neck is without JVD, thyromegaly, or carotid bruits. Lungs are bibasilar rales Cardiac exam, Rhythm is regular.. No murmurs, rubs or gallops. Abdominal exam reveals normal bowel sounds, soft non tender, no masses Extremities are nonedematous and both pedal pulses are present Neurologic exam is alert and oriented, no focal loss of strength or sensation Skin is without bruises or rashes Psychologically is without concerns for anxiety or depression. Results & Data Results & Data ([facility]) Vital Signs (Past 12 Hours) Vital Signs Temp Pulse Pulse Resp BP Pulse Ox 12/12/20 16:40 94 12/12/20 16:35 88 L 12/12/20 16:06 98.2 F 61 20 136/83 92 12/12/20 15:15 62 18 93 12/12/20 15:05 92 12/12/20 14:55 94 12/12/20 14:20 71 12/12/20 11:37 59 L 18 93 12/12/20 11:29 98.2 F 56 L 18 141/82 H 92 12/12/20 07:33 97.9 F 56 L 22 144/90 H 95 12/12/20 07:28 66 18 94 12/12/20 07:00 60 PG Care Time/CCT Total # of Minutes Spent Total Time Spent with Patient: Total time spent is greater than 50% in coordination of care (as documented) at patient's floor/unit and/or counseling patient: Coding Level of Care Code 55302 Subseq Hosp Care Lvl 3 Diagnoses Multifocal pneumonia J18.9 COVID-19 U07.1 Hypoxia R09.02 Hypertension I10 Paroxysmal atrial fibrillation I48.0 Asthma J45.909 DVT prophylaxis Z29.9 Morbid obesity E66.01 Hypokalemia E87.6
[2020-12-12] MEDS: FLUTICASONE/VILANTEROL 200/25MCG 14 PUFFS/INHALER INH SCH (20:21)
[2020-12-12] MEDS: RIVAROXABAN 20 MG TAB PO SCH (20:21)
[2020-12-13 08:10] LABS: BUN Creatinine Ratio 19.2 (10-20); Calcium 9.5 mg/dl (8.5-10.1); Creatinine Clr Calc Pharmacy 83.9 ml/min; Est GFR (African American) 75.7; Est GFR (Non-African American) 65.3; Potassium 4.1 mmol/L (3.5-5.1)
[2020-12-13] MEDS: LOPERAMIDE HCL 2 MG CAP PO PRN (08:14)
[2020-12-13] MEDS: POTASSIUM CHLORIDE CRTAB 20 MEQ TABCR PO SCH (08:14)
[2020-12-13] MEDS: OLMESARTAN MEDOXOMIL 40 MG TAB PO SCH (08:15)
[2020-12-13] MEDS: hydrALAZINE 10 MG TAB PO SCH ×2 (08:15→14:27)
--- NOTE | 2020-12-13 17:05 | Discharge Summary ---
Date of Service December 13, 2020 Admission HPI Per Admitting Provider Shivani Mishra is a 65-year-old female who presents to the ER with shortness of breath with recent diagnosis of COVID-19 pneumonia (12 days previously). She was prescribed prednisone 40 mg p.o. and azithromycin 500 mg p.o. for 5 days. Started taking prednisone on . Finished azithromycin course yesterday. Despite this her symptoms have been slowly progressively getting worse. Significantly worse starting 5 days ago with increased fever, chills. Yesterday started getting burning pain in her back and left side on deep inspiration. Symptoms include fever, chills, shortness of breath with significant orthopnea and paroxysmal nocturnal dyspnea, cough (much worse on lying down, small amounts of blood a few days ago), loss of taste and smell, myalgias, nasal congestion, nausea without vomiting, watery diarrhea, generalized fatigue. She denies any abdominal pain. She comes to the ER today due to much worse shortness of breath overnight, somewhat helped by her nebulizer. She has a significant history of asthma although usually has less than 1 exacerbation a year and despite being prescribed Advair she rarely takes this. She reports her asthma is much better controlled now she is on a gluten-free diet. is also diagnosed with COVID-19 pneumonia since November 25. She thinks she caught it from him. [place] are in a [place] with 20 workers some of whom have also been diagnosed. Her PCP is with [facility]. She has not been seen at this hospital previously (at least since the new electronic health record) therefore past medical history is limited to patient recollection. She reports a history of paroxysmal atrial fibrillation with prior ablation in 2013. She does note a few months ago she was admitted to [facility] with recurrence of her atrial fibrillation. She restarted Xarelto at that time. She denies any history of myocardial infarction or heart failure. She does not take any rate controlling or antiarrhythmic medications. In the ER chest x-ray was concerning for multifocal pneumonia. Procalcitonin positive at 7.85. I discussed with the ER physician and recommended treatment for secondary bacterial community-acquired pneumonia with ceftriaxone and doxycycline given recent treatment with azithromycin. Influenza PCR negative. She was minimally hypoxic on admission with saturations of 88% on room air which improved to 97% on 2 L/min. She was referred to medicine for admission and ongoing management of hypoxia, multifocal pneumonia, Covid 19. Principal Diagnosis covid pneumonia acute hypoxic respiratory failure Discharge Exam The patient appeared well Vital signs as documented. Lungs are with a few scant rales but otherwise clearing Cardiac exam, regular lesli rate controlled rhythm( history of afib) Abdominal exam reveals normal bowel sounds, soft non tender, no masses Extremities are nonedematous and both pedal pulses are normal. Neurologic exam is alert and oriented, no focal loss of strength or sensation Skin is without bruises or rashes Psychologically is without concerns for anxiety or depression. Discharge Data Allergies Allergy/AdvReac Type Severity Reaction Status Date / Time naproxen Allergy Severe couldn't Verified 12/05/20 13:07 breathe adhesive Allergy Unknown rash Verified 12/05/20 13:07 amlodipine Allergy Unknown leg Verified 12/05/20 13:07 swelling gluten Allergy Unknown GI Verified 12/05/20 13:07 reactions Consultations 12/05/20 13:32 ED Decision to Admit Stat Hospital Course (1) Multifocal pneumonia: Failure of azithromycin as an outpatient. Elevated procalcitonin with worsening of illness 12 days previously suggest secondary bacterial pneumonia. treat with ceftriaxone and doxycycline x 7 days, WBC normal, last fever was 12/07 in the morning Patient will go home on oxygen therapy with evaluation as an outpatient with a primary care provider CXR 12/07 with progression of infiltrates, pneumonia due to coronavirus disease 2018 patient is graduated to nasal cannula oxygen on 2 L at time of discharge (2) COVID-19: 3 days of prednisone 40 mg prior to admission. treat with dexamethasone 6 mg IV daily, is persistently hypoxic at time of discharge will have additional doses of dexamethasone at home Given diagnosis almost 2 weeks ago did not administer remdesivir or convalescent plasma. Covid isolation precautions. This patient is continued symptomatic will recommend home isolation at time of discharge (3) Hypoxia: acute respiratory failure with hypoxia improving Secondary to COVID-19 pneumonia and multifocal secondary bacterial pneumonia as above. Aim O2 sats > 90%. improving prognosis, lessening oxygen requirements (4) Hypertension: Continue on her usual regimen hydralazine 10mg PO TID, Olmesartan 40mg PO plus hydrochlorothiazide (5) Paroxysmal atrial fibrillation: , she is in sinus rhythm Anticoagulation with Xarelto. On no rate controlling or antiarrhythmics. (6) Asthma: No acute exacerbation. Albuterol PRN for shortness of breath, wheezing or cough Continue Advair Diskus 1 inhalation twice daily. (7) Morbid obesity: Total Time Total Time Spent Total Time Spent (In Minutes): It required greater than 30 minutes to prepare this patient for discharge Discharge Plan Discharge Items Patient Disposition: Home - Self-Care Reason For Visit: COVID 19 PNEUMONIA, MULTIFOCAL BACTERIAL PNA, HYPO Discharge Diagnosis: covid pneumonia acute hypoxic respiratory failure Activity: Per Instructions section Activity Comment: slowly increase activity, no intentional exercise while on oxygen Non-emergency contact: Primary Care Provider Call non-emergency contact if: you have any medication questions and your symptoms worsen Follow-up/Referrals: Raji Hernandez D.O. [Primary Care Provider] - (Dr Hernandez's office will call you to schedule a hopsital follow up apt.) Diet: Regular Addtl Attending Provider Instructions: You have been diagnosed with Covid pneumonia and did require fair amount of oxygen supplementation. It is expected over the next few weeks that her oxygen requirements will go down. If you wish you may purchase an [id number] oxy gen meter however you also of the opportunity have your oxygen checked by the [id number] and also your physician if you report for follow-up visit. Because of your persistent oxygen need you will be given a few additional days worth of steroids to reduce inflammation in your lungs. Because your diagnosis has been already 2 weeks ago you can be off home isolation but should continue to practice good personal protective equipment and social distancing It be recommended that you do follow-up with your primary care physician at least virtually or in the office in 1 week and then as a direct Pending Studies at Discharge: No Stand-Alone Forms: My [facility] [employer], Smoking Cessation Medications and DC Order Prescriptions: New dexamethasone 6 mg tablet 6 mg PO DAILY Qty: 5 RF: 0 Continued hydralazine 10 mg tablet 10 mg PO TID RF: 0 fluticasone propion-salmeterol [Advair Diskus] 250-50 mcg/dose Blister With Device 1 inh INHALATION BID RF: 0 albuterol sulfate 1.25 mg/3 mL Solution For Nebulization 1.25 mg INHALATION QID PRN (Reason: sob/wheezing) RF: 0 acetaminophen [Tylenol Extra Strength] 500 mg Tablet 1,000 mg PO Q6H PRN (Reason: fever/pain) RF: 0 hydrochlorothiazide 12.5 mg capsule 12.5 mg PO QAM RF: 0 albuterol sulfate [Ventolin HFA] 90 mcg/actuation HFA aerosol inhaler 2 puff INHALATION QID PRN (Reason: sob/wheezing) RF: 0 olmesartan 40 mg tablet 40 mg PO QAM RF: 0 Xarelto 20 mg tablet 20 mg PO PM RF: 0 Discontinued prednisone 20 mg tablet 20 mg PO QAM RF: 0 azithromycin 500 mg tablet 500 mg PO QAM RF: 0 Discharge Orders: Discharge Order (Routine); Ordered 12/13/20 Ordered By: Aly Salguero Admission Data Admit Date/Time: 12/05/20 14:31 Attending Provider: Aly Salguero Admit Provider: Alfredo Walls Primary Care Provider: Raji Hernandez Other Providers: Alfredo Walls Coding Level of Care Code D/C Day Management >30 mins Diagnoses Multifocal pneumonia J18.9 COVID-19 U07.1 Hypoxia R09.02 Hypertension I10 Paroxysmal atrial fibrillation I48.0 Asthma J45.909 Morbid obesity E66.01
--- NOTE | 2020-12-26 08:38 | Coding Query ---
CODING QUERY To promote full compliance with coding requirements relating to patient care, provider participation is requested in all cases of payroll officer uncertainty. Please assist us with the question(s) below: Coding Question: There is conflicting information in the chart regarding the patient's hypoxia/respiratory failure: "Hypoxia without respiratory failure" was documented in the H&P and then "Acute respiratory failure with hypoxia" was documented beginning 12/08. Please clarify below whether the patient had respiratory failure and if it was present on admission or developed during their stay. Thank you so much for your help with this! Have a good day! ( ) Acute Respiratory Failure, POA ( ) Acute Respiratory Failure, not POA ( ) Acute Respiratory Failure ruled-out (xxx ) Other explanation: It is difficult for me to asses what was present on admission as I did not do the admission, perhaps quearing the admitting provider, in my discharge summary I documented what I believe was present at discharge Thank you! Bhumi Gutierrez Principal Diagnosis: "that condition established after study, to be chiefly responsible for occasioning the admission of the patient to the hospital for care." Co-Existing Principal Diagnosis: "when two or more diagnoses equally meet the criteria for principal diagnosis as determined by the circumstances of admission, diagnostic work up, and/or therapy provided, and the Alphabetic Index, Tabular List, or another coding guideline does not provide sequencing direction, any one of the diagnoses may be sequenced first." "When the physician has documented what appears to be a current diagnosis in the body of the record, but has not included the diagnosis in the final diagnostic statement, the physician should be asked whether the diagnosis should be added." (Source Coding [facility] 2 QTR90. p3-4) KRISTINE
== END 2020-12-13 16:21 | disposition home or self-care (01) | DRG 177 ==
LOC: ED 11:16 → SUATTDRO 14:31 → 2E 14:31

== ENCOUNTER 2025-08-08 05:28 | Observation (INO) ==
--- NOTE | 2025-06-06 11:41 | PAT Medication Instructions ---
Medication Instructions Date of Service June 06, 2025 Home Medications olmesartan 40 mg tablet 40 mg PO QAM rivaroxaban 20 mg tablet (Xarelto) 20 mg PO PM allopurinol 300 mg tablet 300 mg PO QAM cetirizine 10 mg tablet (Zyrtec) 10 mg PO DAILY PRN allergies chlorthalidone 25 mg tablet 25 mg PO QAM hydralazine 50 mg tablet 50 mg PO BID magnesium oxide 400 mg PO HS potassium chloride 20 mEq tablet,extended release 20 meq PO HS ASK your prescriber and surgeon rivaroxaban 20 mg tablet (Xarelto) 20 mg PO PM (From anesthesia perspective, rivaroxaban/Xarelto needs to be stopped 72 hours/3 days before surgery. Please check if okay with doctor that prescribes this to you) DO NOT take the morning of surgery olmesartan 40 mg tablet 40 mg PO QAM cetirizine 10 mg tablet (Zyrtec) 10 mg PO DAILY PRN allergies chlorthalidone 25 mg tablet 25 mg PO QAM Take morning of surgery With a small sip of water, OTHERWISE NOTHING TO EAT OR DRINK AFTER MIDNIGHT: allopurinol 300 mg tablet 300 mg PO QAM hydralazine 50 mg tablet 50 mg PO BID Take evening before surgery cetirizine 10 mg tablet (Zyrtec) 10 mg PO DAILY PRN allergies (if needed) hydralazine 50 mg tablet 50 mg PO BID magnesium oxide 400 mg PO HS potassium chloride 20 mEq tablet,extended release 20 meq PO HS Other Notes If you have any questions please call us at [phone] or [phone] or [phone] or [phone]
--- NOTE | 2025-06-13 14:03 | Anesthesiology Consultation ---
Date of Service June 13, 2025 Assessment & Plan (1) Encounter for pre-operative examination: - Infectious disease screening: Per assessment on 06/13/25- No known recent infectious disease contacts or current infectious disease symptoms. - Outpatient joint assessment: Pt currently scheduled for inpatient pathway. If surgeon requests review for outpatient joint pathway, patient is not recommended candidate for outpatient joint program from anesthesia standpoint based on available information. - Xarelto instructions: patient made aware that for neuraxial anesthesia, Xarelto needs to be held 72 hours prior to surgery. Patient voiced understanding/will check if okay with prescriber. - Cardiology visit (09/18/24): "Atrial fibrillation- paroxysmal.. [id number].. Continue Xarelto.. Hypertension- benign , essential, acceptable today.." - Pending: * Per lab, patient's coags hemolyzed- will need to be redrawn. Maria Elena with surgeon's office aware/faxed order to [facility] per patient request. Awaiting preop coags ([facility], TBD 06/14). * Awaiting surgeon-ordered PCP preop evaluation (Dr. Julius Koehler, appt 06/14). Chart Review Chart Review: Patient seen in Pre Admission Testing Teaching & Discussion Pre-Anesthesia Teaching/Discussion Notes: Instructed NPO after midnight before surgery,except medications with 15 cc of water. Medication instructions provided according to the PAT guidelines. History Surgery Operation Date: 07/11/25 10:10 Proposed Procedures p Left Total Knee Arthroplasty - Gabe Avila MD Height/Weight Height: 5 ft 7 in Weight: 129.7 kg Allergies Allergy/AdvReac Type Severity Reaction Status Date / Time amlodipine Allergy Intermediate Leg Verified 06/06/25 12:44 swelling adhesive Allergy Mild Rash Verified 06/06/25 12:44 gluten AdvReac Intermediate GI Verified 06/05/25 12:54 reactions Medications Home Medications Medication Instructions Recorded Confirmed Last Taken olmesartan 40 mg tablet 40 mg PO QAM 12/05/20 06/05/25 12/05/20 rivaroxaban 20 mg tablet (Xarelto) 20 mg PO PM 12/05/20 06/05/25 12/04/20 allopurinol 300 mg tablet 300 mg PO QAM 06/05/25 06/05/25 Unknown cetirizine 10 mg tablet (Zyrtec) 10 mg PO DAILY PRN allergies 06/05/25 06/05/25 Unknown chlorthalidone 25 mg tablet 25 mg PO QAM 06/05/25 06/05/25 Unknown hydralazine 50 mg tablet 50 mg PO BID 06/05/25 06/05/25 Unknown magnesium oxide 400 mg PO HS 06/05/25 06/05/25 Unknown potassium chloride 20 mEq 20 meq PO HS 06/05/25 06/05/25 Unknown tablet,extended release Past Medical History Medical History Acid reflux Arthritis Asthma Controlled, No current inhaler Atrial fibrillation Taking Xarelto Follows with Dr. Sweet Hx of basal cell carcinoma Hx of gout Hx of squamous cell carcinoma Hypertension Morbid obesity Exercise / Class Metabolic Activity II 4-5 Yardwork/Stairs/Walk up hill (one FS: no CP, no SOB) Past Family History Family History Other No family history of adverse response to anesthesia Past Surgical History Surgical History History of cardiac cath 2013- no stents History of cholecystectomy History of colonoscopy History of hysterectomy History of repair of hiatal hernia History of tonsillectomy History of tooth extraction History of total knee replacement (2016) Right TKA: SAB at L3-4 + regional at [facility] S/P Mohs surgery for basal cell carcinoma Chin area Status post ablation of atrial fibrillation (2013) [facility] Past Anesthesia History No Hx of Anesthesia Complications and No Family Hx of Anesthesia Complications History of PONV No Hx of PONV and No Hx of Motion Sickness Social History Smoking Status: Never smoker Do You Dip or Chew Tobacco: No Hx Alcohol Use: Yes Alcohol type: hard liquor alcohol intake frequency: holidays/special occasions only (mixed drinks) substance use type: does not use Review of Systems Patient denies chest pain, shortness of breath, dyspnea on exertion, fever, chills, cough, wheezing, palpitations. Physical Exam Vital Signs BP 96/68 P 88 TEMP 98.3 SP02 94%RA RESP 18 Physical Full cervical extension range of motion. Full TMJ range of motion. TMD 3 finger breaths Mallampati Score I Dentition: intact, + several implants, + caps Lungs: clear throughout to auscultation Cardiac: regular rate and rhythm, no murmurs noted Spine: normal Carotid arteries: negative bruit Extremities: no LE edema Lab Results Anesthesia Preop Results Results Anesthesia Widget: Urine Color Yellow 06/13/25 Urine Appearance Clear (Clear) 06/13/25 Urine pH 8.0 (4.5-7.5) H 06/13/25 Urine Specific [place] 1.011 (1.000-1.030) 06/13/25 Urine Protein Negative (Negative) 06/13/25 Urine Glucose (UA) Negative (Negative) 06/13/25 Urine Ketones Negative (Negative) 06/13/25 Urine Blood Negative (Negative) 06/13/25 Urine Nitrite Negative (Negative) 06/13/25 Urine Bilirubin Negative (Negative) 06/13/25 Urine Urobilinogen Negative (Negative) 06/13/25 Urine Leukocyte Esterase 1+ (Negative) H 06/13/25 Urine WBC (Auto) 0-5 /hpf (0-5) 06/13/25 Urine RBC (Auto) 0-2 /hpf (0-2) 06/13/25 Urine Hyaline Casts (Auto) 0-2 /lpf (0-2) 06/13/25 Urine Epithelial Cells (Auto) 0-2 /hpf (0-2) 06/13/25 Urine Bacteria (Auto) None Seen (None Seen) 06/13/25 Blood Type A Positive 06/13/25 Antibody Screen NEGATIVE 06/13/25 Testing Laboratory Results 05/24/25 WBC 6.59 H/H 14.2/46.0 PLATELETS 254 SODIUM 135 POTASSIUM 3.6 CHLORIDE 97 CO2 29.1 BUN 14.0 CREATININE 1.05 GLUCOSE 110 Electrocardiogram Date: 09/18/24 SR at 82bpm. Chest X-Ray Date: 06/13/25 Findings: + NAD Echocardiogram Date: 10/18/20 EF 55-60%. Grade I DD. Small LV. Normal LV systolic function. Trace AR.
--- NOTE | 2025-08-06 17:29 | History & Physical Report ---
Date of Service August 06, 2025 Assessment & Plan (1) Osteoarthritis of left knee: Plan: End-stage left knee osteoarthritis. History of right knee replacement in the past. Plan is to proceed with a left total knee replacement. Osteoarthritis type: primary Qualified Code(s): M17.12 - Unilateral primary osteoarthritis, left knee History of Present Illness Chief Complaint: Left knee pain and disability Primary Care Provider: Raji Patel David 70-year-old female with ongoing left knee pain with chronic treatment for left knee osteoarthritis. She had a right knee replacement in 2017. Patient presents for left knee replacement. Patient denies headaches, sweats, fevers, chills, double vision, blurred vision, cough, sore throat, dysphagia, chest pain, sob, wheezing, n/v/d/c, numbness, tingling, fatigue, urinary symptoms, mood disorders. ROS positive for regular heartbeat acid reflux obesity recent treatment for tooth with root canal procedure. Allergies Allergy/AdvReac Type Severity Reaction Status Date / Time amlodipine Allergy Intermediate Leg Verified 08/03/25 14:00 swelling adhesive Allergy Mild Rash Verified 08/03/25 14:00 gluten AdvReac Intermediate GI Verified 08/03/25 14:00 reactions Home Medications Medication Instructions Recorded Confirmed Type olmesartan 40 mg tablet 40 mg PO QAM 12/05/20 08/03/25 History rivaroxaban 20 mg tablet (Xarelto) 20 mg PO PM 12/05/20 08/03/25 History allopurinol 300 mg tablet 300 mg PO QAM 06/05/25 08/03/25 History cetirizine 10 mg tablet (Zyrtec) 10 mg PO DAILY PRN allergies 06/05/25 08/03/25 History chlorthalidone 25 mg tablet 25 mg PO QAM 06/05/25 08/03/25 History hydralazine 50 mg tablet 50 mg PO BID 06/05/25 08/03/25 History magnesium oxide 400 mg PO HS 06/05/25 08/03/25 History potassium chloride 20 mEq 20 meq PO HS 06/05/25 08/03/25 History tablet,extended release Past Med/Surg History Problem List (Updated 08/06/25 @ 17:29 by Gabe Avila MD) Osteoarthritis of left knee Paroxysmal atrial fibrillation Hypertension Asthma Right knee DJD Medical History History of root canal treatment (07/24/25) had infection after root canal- finished abx yesterday 08/02/25- had last surgery cancelled for this reason Arthritis Hx of gout Acid reflux Hx of squamous cell carcinoma Hx of basal cell carcinoma Atrial fibrillation Taking Xarelto Follows with Dr. Sweet Hypertension Asthma Controlled, No current inhaler Morbid obesity Surgical History History of cholecystectomy History of hysterectomy History of total knee replacement (2016) Right TKA: SAB at L3-4 + regional at [facility] History of colonoscopy History of repair of hiatal hernia S/P Mohs surgery for basal cell carcinoma Chin area History of tooth extraction History of tonsillectomy History of cardiac cath (2013) 2013- [place]- no mi- no stents Status post ablation of atrial fibrillation (2013) [facility] Family History Other No family history of adverse response to anesthesia Social History Smoking Status: Never smoker Second Hand Exposure: No; Do You Dip or Chew Tobacco: No; Tobacco Cessation Education Requested by Patient: No Hx Alcohol Use: Yes Alcohol type: hard liquor Hx Substance Use: No Preferred Language: Croatian Communication Ability: Effective 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 Mild varus alignment, moderate patellofemoral crepitation. Distal circulation sensorimotor exam intact. Right knee consistent with a stable well-functioning knee replacement. Skin: no rashes, warm and dry Neurologic: normal touch/pain/proprioception Psychiatric: A+Ox3, euthymic affect Results & Data Diagnostic Findings Radiographs left knee demonstrate [id number] medial compartment with some bone loss on medial femoral condyle with medial compartment osteoarthritis end-stage with moderately advanced medial side of the patellofemoral joint arthritic changes. Well aligned [employer] journey knee replacement on right knee
[~2025-08-08 05:28] MED LIST changes: -ADVIN25/60 INH; -CEFAZOLIN 3000 MG/65 ML D5W 65 ML IV SCH; -CLB/200 PO; -DEXAMETHASONE 4 MG TAB PO SCH; -FLUT0.15 NAE; -HYZ/50125 PO; -IBUP-1450 PO; -LACTATED RINGER'S 1000ML 1,000 ML IV SCH; -LACTATED RINGER'S 1000ML 500 ML IV ONE; +LR 500ML BOLUS, THEN 15ML/HR IV SCH; +LR 60ML/HR IV SCH; -METOCLOPRAMIDE HCL 10 MG TAB PO SCH; +METOCLOPRAMIDE HCL 10 MG TABLET PO SCH; +ROPIVACAINE 0.5% HCL/PF 246 MG, Ketorolac (*for OR use only*) 30 MG in SODIUM CHLORIDE ... INFIL SCH; -ROPIVACAINE 5MG/ML 30 ML 150 MG, BUPIVACAINE/EPINEPHR 0.5% MPF 30 ML, KETOROLAC TROMETH... INFIL SCH; +TRANEXAMIC ACID 1,000 MG **IV Pre-op IV SCH; -VNTHFA/IN INH; +ceFAZolin 3000MG 3,000 MG/72.5 ML BAG IV SCH; +dexAMETHasone**PF** 10 MG/ML VIAL IV SCH
[2025-08-08] MEDS: LR 60ML/HR IV SCH (06:08)
[2025-08-08] MEDS: LR 500ML BOLUS, THEN 15ML/HR IV SCH (06:08)
[2025-08-08] MEDS: METOCLOPRAMIDE HCL 10 MG TABLET PO SCH (06:10)
[2025-08-08] MEDS: ACETAMINOPHEN 500 MG TAB PO SCH ×2 (06:10→13:32)
[2025-08-08] MEDS: GABAPENTIN 300 MG CAP PO SCH (06:11)
[2025-08-08] MEDS: CeleBREX 200 MG CAP PO SCH (06:11)
[2025-08-08] MEDS: dexAMETHasone**PF** 10 MG/ML VIAL IV SCH (06:11)
[2025-08-08] MEDS: FAMOTIDINE 20 MG TAB PO SCH (06:11)
[2025-08-08] MEDS ORDERED: PROPOFOL IV EMULSION 10 MG/ML 100 ML VIAL IV ONE (06:21)
[2025-08-08] MEDS ORDERED: LIDOCAINE 2% 2 ML VIAL/AMP(20MG/ML) INFIL ONE (06:23)
[2025-08-08] MEDS ORDERED: PHENYLEPHRINE HCL 10 MG/ML VIAL ONE (06:23)
[2025-08-08] MEDS ORDERED: PROPOFOL IV EMULSION 10 MG/ML 20 ML VIAL IV ONE (06:23)
[2025-08-08] MEDS ORDERED: MIDAZOLAM HCL 1 MG/ML 2ML VIAL ONE (06:24)
[2025-08-08] MEDS ORDERED: BUPIVACAINE 0.5 % 5 MG/1 ML PF 10ML VIAL ONE (06:26)
[2025-08-08] MEDS ORDERED: BUPIVACAINE 0.25% PF 30 ML VIAL ONE (06:26)
[2025-08-08] MEDS ORDERED: DexMEDEtomidine HCL IV 100 MCG/ML VIAL IV ONE (06:34)
[2025-08-08] MEDS ORDERED: ATROPINE SULFATE 0.1 MG/ML 10ML SYR IV PRN (06:44)
[2025-08-08] MEDS ORDERED: ONDANSETRON INJ 2 MG/ML 2 ML VIAL IV PRN ×2 (06:44→11:29)
[2025-08-08] MEDS: TRANEXAMIC ACID 1,000 MG **IV Pre-op IV SCH (07:10)
--- NOTE | 2025-08-08 07:13 | History & Physical Bridge Note ---
Date of Service August 08, 2025 History & Physical Bridge Note I have examined the patient, reviewed the History & Physical and in the interval since the performance of the History & Physical I have noted the following changes of clinical significance: no changes noted
[2025-08-08] MEDS: ceFAZolin 3000MG 3,000 MG/72.5 ML BAG IV SCH (07:35)
[2025-08-08] MEDS ORDERED: ePHEDrine sulfate 50 MG/5 ML SYR ONE (07:37)
[2025-08-08] MEDS: ROPIVACAINE 0.5% HCL/PF 246 MG, Ketorolac (*for OR use only*) 30 MG in SODIUM CHLORIDE ... INFIL SCH (08:55)
[2025-08-08] MEDS: ORTHO JOINT ANESTHETIC ONE (09:13)
--- NOTE | 2025-08-08 10:02 | Operative Report ---
Post Operative Report Pre & Post Diagnosis Operation Date: 08/08/25 07:00 Pre-Op Diagnosis: Left Knee Degenerative Joint Disease, obesity BMI 44.5 Post-Op Diagnosis: Left Knee Degenerative Joint Disease, obesity BMI 44.5 I identified the patient and participated in the time-out.: Yes Procedure Operation Date: 08/08/25 07:00 Actual Procedures p Left Total Knee Arthroplasty(Left)- Gabe Avila MD Surgeon Gabe Avila MD Director Athletic Ruddy LOVE Estimated Blood Loss 5 Findings Consistent with Post-Op Diagnosis Specimens Bone cuts Drains 2 Hemovac Anesthesia Type MAC Spinal Regional Complications none Disposition Disposition: Recovery Room Indications 70-year-old female with progressive osteoarthritis in left knee now [id number] patellofemoral joint and medial compartment. History of right knee replacement in the past in the past. Description of Procedure The patient was taken to the operating room and anesthetized under spinal MAC regional block. Patient was placed supine on the the operating table. A pneumatic tourniquet was placed about the obese left upper thigh. The knee exam demonstrated 0 through 130 degrees range of motion with a varus knee and no pseudolaxity. Most of her obesity was in the abdominal and truncal area. There was moderate obesity about the knee only. The involved leg was elevated exsanguinated with Esmarch bandage and the pneumatic tourniquet was raised to 350 millimeters mercury. A longitudinal incision was made across the anterior knee. Skin flaps were elevated. An incision was made into the medial retinaculum and extended up into the mid third of the quadriceps tendon and extended down to the tibial tubercle. Intra-articular findings demonstrated tricompartmental osteoarthritis with chronic medial meniscus tear [id number] medial compartment with eburnation some bone loss medial femoral condyle with grade 4 patellofemoral osteoarthritis medial patellofemoral compartment patella and trochlea.. The knee was exposed by excising cruciate ligaments and menisci. The infrapatellar fat pad was resected. The fat pad over the anterior femur at the upper aspect of the articular surface was resected for placement of the component in that area. A subperiosteal peel lateral release was performed around the patella. The [employer] 2.0 total knee arthroplasty system was utilized for the procedure. The custom femoral cutting guide was pinned in position. The distal femoral cut was made. The size 6, 5 in 1 cutting block was placed. The anterior posterior and chamfer cuts were made. The knee was extended and a free hand cut technique was performed to the patella. The patella width was measured and the width was reproduced using a 35 mm symmetrical patella component. The excess lateral facet was beveled off to prevent any impingement. 3 drill holes are made for the patella component pegs. The tibia was then subluxed. The cus nik tibial cutting block was pinned in position and the proximal tibial cut was made with the oscillating saw. Flexion and extension gaps were balanced. Piecrust anterior MCL release was only released required. The size 4 tibial trial was externally rotated in line with the tibial tubercle and pinned in position. The punch for the stem was used. The femoral trial was inserted and centered the notch cutting devices were used and the collet was placed. Tibial trials were used for the insert. The size 15 trial gave balanced ligaments through full range of motion. Patella tracking was assessed with range of motion. The patella tracked centrally. The trials were removed. The Orthomix anesthetic cocktail was injected per protocol. The cut bone surfaces and soft tissue were copiously ir rigated with pulsatile lavage saline solution. The final components were cemented with Refobacin cement. The final components were [employer] journey 2.0 size 6 left posterior stabilized femoral component with a 4 left tibial component with a 15 mm left posterior stabilized tibial polyethylene and 35 mm symmetrical polyethylene patella. Xperience irrigation was placed over metal tray prior to polyethylene insertion. After the cement cured, the knee was then copiously irrigated with pulsatile lavage Xperience solution. 2 drains were brought out laterally connected to Hemovac. The quadriceps tendon and medial retinaculum were closed with #2 FiberWire [id number] sutures around the medial retinaculum and distal quad tendon and at the apex of the quad split proximally and additional suture at the level of the tibial polyethylene. A 0 strata fix running locking suture was placed from the proximal split down to the inferior pole of the patella and then the remainder the medial retinaculum was repaired with interrupted [id number] #1 Vicryl sutures. The knee was taken through full range of motion and repair was secure. Knee range of motion was 0 through 130 degrees. the subcutaneous tissues were closed with 2-0 Vicryl sutures. The skin was closed with surgical richard. A standard sterile dressing was applied due to an adhesive allergy. The tourniquet was let down and the patient had good capillary refill to the extremity. The patient tolerated the procedure well. My physician medical assistant dermatology Ruddy LOVE participated as dietary assistant and was integral part in all aspects of the procedure including prepping, draping, leg positioning, soft tissue retraction, instrument management and assisted in the closure , dressing application and will participate in postoperative care the patient. I attest to the content of the Intraoperative Record and any orders documented therein. Any exceptions are noted below.
--- NOTE | 2025-08-08 10:15 | XRay Report ---
XR knee LT 1 or 2V routine CLINICAL HISTORY: Surgical Post Op COMPARISON: None FINDINGS: Left knee prosthesis shows no hardware complication. There is expected postoperative gas. Postoperative drain is present. Skin richard are present. IMPRESSION: Unremarkable postoperative exam. ACT 112: Negative or not required by law. Electronically signed by: Matt Newberry M.D. 08/08/2025 10:14 AM
--- NOTE | 2025-08-08 11:26 | Anesthesiology Progress Note ---
Date of Service August 08, 2025 Anesthesia Post Procedure Vital Signs Vital Signs: Temp Pulse Pulse Resp BP BP Pulse Ox 08/08/25 11:05 80 14 113/72 95 08/08/25 10:50 77 13 109/72 93 08/08/25 10:35 36.6 C 78 14 118/66 95 08/08/25 10:25 79 12 118/77 97 08/08/25 10:15 76 12 112/73 96 08/08/25 10:05 78 12 115/72 95 08/08/25 09:55 80 14 118/64 96 08/08/25 09:46 36.4 C L 79 18 101/61 97 08/08/25 05:42 36.6 C 84 18 111/73 94 O2 Del Method O2 Flow Rate 08/08/25 11:05 Nasal Cannula 2 08/08/25 10:50 Nasal Cannula 2 08/08/25 10:35 Nasal Cannula 2 08/08/25 10:25 Nasal Cannula 2 08/08/25 10:15 Nasal Cannula 2 08/08/25 10:05 Nasal Cannula 2 08/08/25 09:55 Oxymask 7 08/08/25 09:46 Oxymask 7 08/08/25 05:42 Room Air Pain Intensity Left Knee: Pain Intensity: 0 Transfer of Care Handoff Completed per policy Notes Mental Status: alert / awake / arousable and participated in evaluation Patient Amnestic to Procedure: No Nausea / Vomiting: adequately controlled Pain: adequately controlled Airway Patency, RR, SpO2: stable & adequate BP & HR: stable & adequate Hydration State: stable & adequate Neuraxial Anesthesia: was administered and sensory block is resolving Anesthetic Complications: no major complications apparent and Pt Satisfied with anesthetic care
[2025-08-08] MEDS ORDERED: METOCLOPRAMIDE HCL INJ 5 MG/ML 2 ML VIAL IV PRN (11:29)
[2025-08-08] MEDS ORDERED: diphenhydrAMINE Capsule 25 MG CAP PO PRN (11:29)
[2025-08-08] MEDS ORDERED: HYDROmorphone INJ 0.5 MG/0.5 ML SYR IV PRN (11:29)
[2025-08-08] MEDS ORDERED: KETOROLAC TROMETHAMINE 15 MG/ML VIAL IV PRN (11:29)
[2025-08-08] MEDS ORDERED: ALUMINUM/MAGNESIUM SUSP 30 ML UDC PO PRN (11:29)
[2025-08-08] MEDS ORDERED: CETIRIZINE HCL 10 MG TABLET PO PRN (11:29)
[2025-08-08] MEDS ORDERED: NALOXONE HCL 0.4 MG/1 ML VIAL/CARP IV PRN (11:29)
[2025-08-08] MEDS ORDERED: MAGNESIUM HYDROXIDE SUSP 30 ML UDC PO PRN (11:29)
[2025-08-08] MEDS: SODIUM CHLORIDE 0.9% 1,000 ML IV SCH (11:45)
--- NOTE | 2025-08-08 14:24 | Hospitalist Consultation ---
"Date of Consultation August 08, 2025 Assessment & Plan (1) Osteoarthritis of left knee: (2) Paroxysmal atrial fibrillation: (3) Hypertension: Plan Shivani is a pleasant 70-year-old woman with PMH of paroxysmal A-fib, CKD stage G3a, dyslipidemia, hypertension, mild intermittent asthma, generalized osteoarthritis, gout. She presented for left total knee arthroplasty with Dr. Avila on 08/04/2025. Hospital medicine was consulted for postop medical management. #Left knee osteoarthritis s/p left total knee arthroplasty - Pain control, VTE prophylaxis, perioperative antibiotics, activity level, discharge planning per primary team - Requiring some supplemental O2 postop - likely atelectasis from anesthesia. Use incentive spirometer Q1HWA - Follow CBC and BMP with AM labs #Paroxysmal A-fib | HTN | HLD - Continue Xarelto 20 mg daily, hydralazine 50 Mg p.o. twice daily - HOLD olmesartan 40 mg daily and chlorthalidone until AM labs are resulted and to ensure BP not too low postoperatively #CKD stage G3a -holding home olmesartan 40 mg daily, but continue allopurinol 300 mg daily. Avoid nephrotoxins #Gout - continue allopurinol 300 mg daily #Asthma | Allergies - continue Zyrtec as needed. Has not used PRN inhaler since 2019. Encourage incentive spirometer use as above Hospital medicine will continue to follow. Please reach out if any questions or concerns arise. Updated at bedside. Reviewed outpatient records. Supervising Physician Co-Signing Physician Notes PA Supervision Note: I personally saw and examined the patient. I verified all gilliam points and agree with KATE Rainey with the following exceptions and/or additions: S-patient reports doing well, had some pain which is controlled with pain medication. Denies nausea or vomiting, no chest pain or shortness of breath. She has been ambulating. O- Vitals reviewed Gen: AAOx3, NAD HEENT: Anicteric sclerae, EOMI CV: RRR no mgr nl S1S2 Pulm: CTAB no wcr Abd: +BS soft NT ND no masses or hernias Ext: Left knee with dressing and Ruben wrap in place not removed, right knee TKA scar noted Skin: No rashes, warm/dry Neuro: Full strength throughout [id number]-old female history of paroxysmal atrial fibrillation on Xarelto, HTN, asthma, allergies, OA, gout, here recovering from left TKA - Hold home chlorthalidone and telmisartan until check renal function and blood pressures in the morning - Continue Xarelto for DVT prophylaxis and for atrial fibrillation - She remains in a regular rhythm and is not on rate control for her atrial fibrillation History of Present Illness Reason for Consultation: post op management Requesting Physician: Gabe Avila MD Attending Physician: Gabe Avila MD History of Present Illness Shivani is a pleasant 70-year-old woman with PMH of paroxysmal A-fib, CKD stage G3 AA, dyslipidemia, hypertension, mild intermittent asthma, generalized osteoarthritis. She presented for left total knee arthroplasty with Dr. Avila on 08/04/2025. Per review of operative report, EBL was listed as 5 mL, and there were no complications noted. Per review of patient's vitals postop, she has been requiring some supplemental O2 at 2 L NC to maintain oxygen saturation; vitals otherwise stable. Patient reports that she is feeling well overall postoperatively. Her is present at bedside. She has eaten and drinking since her surgery and tolerated this well. She has not gone to the bathroom postop but has passed gas. She reports she is starting to have sensation return to her left lower extremity. She is able to wiggle her toes. She reports mild pain in her left knee at this time. She denies any headache, sore throat, shortness of breath, difficulty breathing, chest pain, abdominal pain, nausea, urinary symptoms, or significant pain. She denies any recent medication changes. She does not use supplemental oxygen at baseline. I reviewed how to use the incentive spirometer with her. She reports Dr. Avila plans to discharge her home tomorrow, 08/09. She denies any additional complaints or concerns at this time. Allergies Allergy/AdvReac Type Severity Reaction Status Date / Time adhesive Allergy Mild Rash Verified 08/03/25 14:00 amlodipine AdvReac Intermediate Leg Verified 08/08/25 05:32 swelling gluten AdvReac Intermediate GI Verified 08/03/25 14:00 reactions Home Medications Medication Instructions Recorded Confirmed Type olmesartan 40 mg tablet 40 mg PO QAM 12/05/20 08/08/25 History rivaroxaban 20 mg tablet (Xarelto) 20 mg PO PM 12/05/20 08/08/25 History allopurinol 300 mg tablet 300 mg PO QAM 06/05/25 08/08/25 History cetirizine 10 mg tablet (Zyrtec) 10 mg PO DAILY PRN allergies 06/05/25 08/08/25 History chlorthalidone 25 mg tablet 25 mg PO QAM 06/05/25 08/08/25 History hydralazine 50 mg tablet 50 mg PO BID 06/05/25 08/08/25 History magnesium oxide 400 mg PO HS 06/05/25 08/08/25 History potassium chloride 20 mEq 20 meq PO HS 06/05/25 08/08/25 History tablet,extended release acetaminophen 500 mg tablet 1,000 mg (2 x 500 mg) PO Q8H #90 08/08/25 Rx (Tylenol Extra Strength) tabs cefadroxil 500 mg capsule 500 mg PO Q12H #28 caps 08/08/25 Rx oxycodone 5 mg tablet 5 mg PO Q4H PRN pain #30 tabs 08/08/25 Rx Patient History Medical History History of root canal treatment (07/24/25) had infection after root canal- finished abx yesterday 08/02/25- had last surgery cancelled for this reason Arthritis Hx of gout Acid reflux Hx of squamous cell carcinoma Hx of basal cell carcinoma Atrial fibrillation Taking Xarelto Follows with Dr. Sweet Hypertension Asthma Controlled, No current inhaler Morbid obesity Surgical History History of cholecystectomy History of hysterectomy History of total knee replacement (2016) Right TKA: SAB at L3-4 + regional at [facility] History of colonoscopy History of repair of hiatal hernia S/P Mohs surgery for basal cell carcinoma Chin area History of tooth extraction History of tonsillectomy History of cardiac cath (2013) 2013- [place]- no mi- no stents Status post ablation of atrial fibrillation (2013) 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 Class III obesity with BMI 44.5. Skin: Warm, dry. No rashes or peripheral edema noted. Extremities: Left lower extremity wrapped in postoperative dressing with drain present. Able to wiggle toes. Distally neurovascularly intact bilaterally. Cardiac: Regular rate and rhythm without murmurs gallops or rubs. Pulm: Diminished in bases bilaterally but otherwise clear to auscultation without wheezes, rales or rhonchi. Normal respiratory effort. 98% on 2 L NC. Abdominal: Soft, nontender, nondistended. Hypoactive bowel sounds present. Neuro: A&O x3. No focal neurological deficits. Results & Data Results & Data Vital Signs (Past 12 Hours) Vital Signs Temp Pulse Pulse Resp BP BP Pulse Ox 08/08/25 13:29 98.1 F 88 17 129/82 97 08/08/25 12:22 97.3 F L 79 17 126/85 98 08/08/25 11:53 97.5 F L 79 17 118/76 95 08/08/25 11:38 08/08/25 11:25 97.7 F 75 17 109/75 95 08/08/25 11:05 80 14 113/72 95 08/08/25 10:50 77 13 109/72 93 08/08/25 10:35 97.9 F 78 14 118/66 95 08/08/25 10:25 79 12 118/77 97 08/08/25 10:15 76 12 112/73 96 08/08/25 10:05 78 12 115/72 95 08/08/25 09:55 80 14 118/64 96 08/08/25 09:46 97.5 F L 79 18 101/61 97 08/08/25 05:42 97.9 F 84 18 111/73 94 O2 Del Method O2 Flow Rate 08/08/25 13:29 Nasal Cannula 2 08/08/25 12:22 Nasal Cannula 2 08/08/25 11:53 Nasal Cannula 2 08/08/25 11:38 Nasal Cannula 2 08/08/25 11:25 Nasal Cannula 2 08/08/25 11:05 Nasal Cannula 2 08/08/25 10:50 Nasal Cannula 2 08/08/25 10:35 Nasal Cannula 2 08/08/25 10:25 Nasal Cannula 2 08/08/25 10:15 Nasal Cannula 2 08/08/25 10:05 Nasal Cannula 2 08/08/25 09:55 Oxymask 7 08/08/25 09:46 Oxymask 7 08/08/25 05:42 Room Air PG Care Time/CCT Total # of Minutes Spent Total Time Spent with Patient: Total time spent is greater than 50% in coordination of care (as documented) at patient's floor/unit and/or counseling patient: Coding Level of Care Code 65668 IN/OBS CONSULT LVL 3,45M Diagnoses Primary osteoarthritis of left knee M17.12 Osteoarthritis type: primary Paroxysmal atrial fibrillation I48.0 Hypertension I10 (1) Osteoarthritis of left knee Osteoarthritis type: primary Qualified Code(s): M17.12 - Unilateral primary osteoarthritis, left knee"
[2025-08-08] MEDS: TRANEXAMIC ACID / 0.7% NACL 1,000 MG/100 ML BAG IV SCH (15:45)
[2025-08-08] MEDS: MAGNESIUM OXIDE 400 MG TAB PO SCH (22:34)
[2025-08-08] MEDS: DOCUSATE SODIUM 100 MG CAP PO SCH (22:37)
[2025-08-08] MEDS: SENNA 8.6 MG TAB PO SCH (22:37)
[2025-08-08] MEDS: POTASSIUM CHLORIDE CRTAB 20 MEQ TABCR PO SCH (22:37)
[2025-08-09 03:31] VITALS: TEMP 97.9
[2025-08-09 06:19] LABS: Hematocrit (blood only) 32.8 % (37.0-47.0); Hemoglobin 10.8 g/dl (12.0-16.0); Mean Corpuscular Hemoglobin 29.1 pg (25.0-34.0); Mean Corpuscular Volume 88.4 fL (80.0-100.0); Platelet Count 204 K/uL (130-400); RDW Standard Deviation 45.2 fL (36.4-46.3); Red Blood Count 3.71 M/uL (4.20-5.40); White Blood Count 14.81 K/ul (4.8-10.8)
[2025-08-09 06:44] LABS: Anion Gap 7.0 (3-11); Blood Urea Nitrogen 23.0 mg/dl (6-23); Calcium 9.0 mg/dl (8.6-10.3); Carbon Dioxide 27.0 mmol/L (21-32); Chloride 97.0 mmol/L (98-107); Creatinine Clr Calc Pharmacy 63.0 ml/min; Glucose 132.0 mg/dl (70-99(Fasting)); Potassium 3.8 mmol/L (3.5-5.1); Sodium 131.0 mmol/L (136-145)
[2025-08-09 07:39] VITALS: BP 106/72; PULSE 79; RESP 18; O2SAT 95
--- NOTE | 2025-08-09 08:08 | Orthopedic Progress Note ---
Date of Service August 09, 2025 Assessment & Plan (1) Osteoarthritis of left knee: Plan: Postop day 1 left knee replacement. Satisfactory progress. Did have 100 cc of drainage last shift so if she has home health they we will be able to pull out the drain and we will leave the drain in upon discharge today. Patient can be discharged home today after physical therapy. She will follow-up in 2 weeks in office for staple removal. She has standard sterile dressings do daily dressing changes at home until wound dry and clean. End-stage left knee osteoarthritis. History of right knee replacement in the past. Plan is to proceed with a left total knee replacement. Admission and Anticipated Discharge Date Admission Date: August 08, 2025 Subjective No complaints doing well Review of Systems Review of Systems: No chest pain shortness of breath Physical Exam Musculoskeletal: Left knee dressing intact. Circulation sensorimotor exam intact. Independent straight leg raise. Results & Data Vital Signs (Past 12 Hours) Vital Signs Temp Pulse Pulse Resp BP BP Pulse Ox 08/09/25 07:38 36.6 C 79 18 106/72 95 08/09/25 05:57 80 16 121/83 98 08/09/25 02:00 36.6 C 91 H 16 103/70 92 08/08/25 22:00 36.5 C 91 H 16 113/74 92 O2 Del Method 08/09/25 07:38 Room Air 08/09/25 05:57 Room Air 08/09/25 02:00 Room Air 08/08/25 22:00 Room Air Diagnostic Findings X-ray satisfactory alignment knee replacement left knee. (1) Osteoarthritis of left knee Osteoarthritis type: primary Qualified Code(s): M17.12 - Unilateral primary osteoarthritis, left knee
--- NOTE | 2025-08-09 08:19 | Hospitalist Progress Note ---
"Date of Service August 09, 2025 Assessment & Plan (1) Osteoarthritis of left knee: (2) Paroxysmal atrial fibrillation: (3) Hypertension: Plan Shivani is a pleasant 70-year-old woman with PMH of paroxysmal A-fib, CKD stage G3a, dyslipidemia, hypertension, mild intermittent asthma, generalized osteoarthritis, gout. She presented for left total knee arthroplasty with Dr. Avila on 08/04/2025. Hospital medicine was consulted for postop medical management. #Left knee osteoarthritis s/p left total knee arthroplasty - Pain control, VTE prophylaxis, perioperative antibiotics, activity level, discharge planning per primary team - No longer requiring supplemental O2 and stable on room air - Mild acute blood loss anemia secondary to surgical intervention with Hgb 10.8 postoperatively - Mild leukocytosis of 14.81, likely secondary to steroids/stress response from surgery. Afebrile, no signs of acute infection - Mild hyponatremia of 131, likely related to surgery and will normalize with resumption of regular PO intake - recommend repeating BMP in 1 week outpatient to trend sodium level, will defer to PCP, added to DC instructions #Paroxysmal A-fib | HTN | HLD - Continue Xarelto 20 mg daily, hydralazine 50 Mg p.o. twice daily - Can resume olmesartan 40 mg daily and chlorthalidone 25 mg daily on discharge #CKD stage G3a - continue allopurinol 300 mg daily. Can resume olmesartan 40 mg daily on discharge. Avoid nephrotoxins #Gout - continue allopurinol 300 mg daily #Asthma | Allergies - continue Zyrtec as needed. Has not used PRN inhaler since 2019. Encourage incentive spirometer use as above Plan is for patient to be discharged home today after being seen by therapy teams. Hospital medicine will sign off at this time. Please reach out if any questions or concerns arise. Admission and Anticipated Discharge Date Admission Date: August 08, 2025 Supervising Physician Co-Signing Physician Notes KATE Supervision Note: I did not personally see or examine the patient today, but I verified all gilliam points of KATE Rainey's assessment and plan with the following exceptions/additions: None Subjective Patient seen and evaluated at bedside. She reports feeling pretty well overall. She reports mild pain in her left knee. She denies any shortness of breath, chest pain, headache, abdominal pain, nausea. She did not sleep very well last night, which she attributes to being in the hospital environment. She has been eating and drinking well. She is urinating without difficulty. She continues to pass gas, no bowel movement yet. We discussed [id number] bowel regimen options she could utilize while taking narcotic pain medication. We also reviewed her lab results from this morning. She reports the plan is to be discharged home after she works with PT. She denies any additional complaints or concerns at this time. Review of Systems Review of Systems: All systems reviewed & are unremarkable except as noted in HPI & below Physical Exam Physical Exam: General: No acute distress, nondiaphoretic, well-developed, well-nourished. Class III obesity with BMI 44.5. Skin: Warm, dry. No rashes or peripheral edema noted. Extremities: Left lower extremity wrapped in postoperative dressing with drain present. Able to wiggle toes. Distally neurovascularly intact bilaterally. Cardiac: Regular rate and rhythm without murmurs gallops or rubs. Pulm: Clear to auscultation without wheezes, rales or rhonchi. Normal respiratory effort. 95% on room air. Abdominal: Soft, nontender, nondistended. Bowel sounds present. Neuro: A&O x3. No focal neurological deficits. Results & Data Results & Data Vital Signs (Past 12 Hours) Vital Signs Temp Pulse Pulse Resp BP BP Pulse Ox 08/09/25 07:38 97.9 F 79 18 106/72 95 08/09/25 05:57 80 16 121/83 98 08/09/25 02:00 97.9 F 91 H 16 103/70 92 08/08/25 22:00 97.7 F 91 H 16 113/74 92 O2 Del Method 08/09/25 07:38 Room Air 08/09/25 05:57 Room Air 08/09/25 02:00 Room Air 08/08/25 22:00 Room Air Laboratory Results Reviewed CBC, BMP PG Care Time/CCT Total # of Minutes Spent Total Time Spent with Patient: Total time spent is greater than 50% in coordination of care (as documented) at patient's floor/unit and/or counseling patient: Coding Level of Care Code 41197 SUB INP/OBS CARE 2/35MIN Diagnoses Primary osteoarthritis of left knee M17.12 Osteoarthritis type: primary Paroxysmal atrial fibrillation I48.0 Hypertension I10 (1) Osteoarthritis of left knee Osteoarthritis type: primary Qualified Code(s): M17.12 - Unilateral primary osteoarthritis, left knee"
[2025-08-09] MEDS: dexAMETHasone 10 MG in SYRINGE 0 ML IV SCH (08:33)
[2025-08-09] MEDS: MULTIVITAMIN TAB PO SCH (08:35)
[2025-08-09] MEDS ORDERED: CHLORTHALIDONE 25 MG TAB PO SCH (09:00)
[2025-08-09] MEDS ORDERED: LOSARTAN POTASSIUM 50 MG TAB PO SCH (09:00)
[2025-08-09] MEDS ORDERED: RIVAROXABAN 20 MG TAB PO SCH (16:30)
== END 2025-08-09 11:29 | disposition home health service (06) ==
LOC: 3E 05:28 → ASU 05:28

== ENCOUNTER 2025-08-14 21:13 | Observation (INO) ==
--- NOTE | 2025-08-14 21:47 | Emergency Department Note ---
Impression & Plan Fever ADMIT ED Provider Note HPI: History obtained from patient. The patient is a 70-year-old female who is postoperative day #6 after left total knee replacement with Dr. Delgado, who presents the emergency department with a chief complaint of pain in the dorsal aspect of her left foot and lateral ankle. Patient states she has also had some chills and generalized weakness and fever today. Patient therefore contacted EMS today for transport to the ER. On arrival here to the ED the patient is hemodynamically stable, she arrives with borderline temperature of 37.8 Celsius, she is saturating well on room air and otherwise appears to be in no acute distress on my initial assessment. Patient denies any recent injuries to her left foot or ankle. She states that when she walks she gets intense pain in the area of her left dorsal and lateral foot/ankle. Patient states that she is on anticoagulation with Xarelto for history of atrial fibrillation, she states that she began taking this medication again the evening that her surgery was completed. She states that she has been compliant over the past 6 days. ROS: - Per HPI Differential Diagnosis: Postoperative wound infection, septic arthritis/prosthesis, DVT, ankle fracture, ankle dislocation, gout, amongst other potential pathologies. *Outpatient medications and allergy history reviewed. PE: General: Alert HEENT: Normocephalic, trachea midline Eyes: Extraocular eye movement is intact, no scleral erythema Pulmonary: Clear to auscultation bilaterally, no wheezing Cardio: Regular rate and rhythm GI: Abdomen is soft to palpation : No suprapubic tenderness MSK: Postoperative wound to the left knee with richard intact, there is no surrounding erythema or purulent drainage, left knee is mildly swollen with overlying contusion consistent with postoperative state, there is some mild swelling of the left ankle mostly laterally, there is a palpable dorsalis pedis pulse in the left foot, otherwise no evidence of trauma or malformation of the extremities Skin: No evidence of rash Neuro: Alert, no focal deficits Psychiatric: Cooperative INDEPENDENT INTERPRETATIONS: manager call center: (As interpreted by myself): - An order was placed for continuous cardiac monitoring - Patient was noted to be in sinus rhythm with a rate of 85 Interventions provided in ED: - IV fluid bolus, IV vancomycin, IV cefepime Medical Decision Making: Patient presented to the emergency department with borderline fever, she is otherwise hemodynamically stable. IV was established and lab work obtained, patient was placed on meter and service line inspector. Lab work shows a mild leukocytosis at 13.48, hemoglobin is stable at 10.4, platelet count is normal, CMP does not show any evidence of any critical findings. Urinalysis does not show any evidence of infection. COVID-19 testing and influenza testing are negative. Ultrasound for DVT was negative, x-ray imaging of the left ankle suggestive of possible sprain, no evidence of any fracture or dislocation. There is no evidence of any obvious hardware failure or obvious infection on x-ray imaging. On my reassessment the patient remained stable appearing, given her fever and chills recently in addition to postoperative state, she was covered with IV vancomycin and IV cefepime. Her postoperative wound does not appear to have any obvious infection. Blood cultures were drawn prior to antibiotic administration. At this point I think it would be reasonable for the patient to be admitted to the hospital for orthopedic consultation. I did discuss the patient's presentation with the on-call orthopedic provider, Dr. Berman, he did evaluate the patient at the bedside. Patient was placed for admission to the hospitalist service, case was discussed with the on-call hospitalist, Dr. Roman, and the patient was placed for admission in stable condition. Patient and her at the bedside were in agreement to this plan. Consultants/Discussions held with other healthcare providers: - Orthopedics, Dr. Berman - Hospitalist, Dr. Roman Disposition discussion held by myself with: - Patient and patient's at the bedside Diagnosis: 1. Fever of unknown origin, acute 2. Left ankle pain/swelling, acute, nonspecific 3. Postoperative day #6 status post left total knee replacement 4. History of atrial fibrillation, on anticoagulation Disposition: Admission Nikita Downing DO Emergency Medicine Past Med/Surg History Problem List (Updated 08/15/25 @ 01:05 by Nikita Downing DO) Fever (Acute) Status post total left knee replacement Ankle pain, left Osteoarthritis of left knee Paroxysmal atrial fibrillation Hypertension Asthma Right knee DJD Medical History History of root canal treatment (07/24/25) had infection after root canal- finished abx yesterday 08/02/25- had last surgery cancelled for this reason Arthritis Hx of gout Acid reflux Hx of squamous cell carcinoma Hx of basal cell carcinoma Atrial fibrillation Taking Xarelto Follows with Dr. Sweet Hypertension Asthma Controlled, No current inhaler Morbid obesity Surgical History History of cholecystectomy History of hysterectomy History of total knee replacement (2016) Right TKA: SAB at L3-4 + regional at [facility] History of colonoscopy History of repair of hiatal hernia S/P Mohs surgery for basal cell carcinoma Chin area History of tooth extraction History of tonsillectomy History of cardiac cath (2013) 2013- [place]- no mi- no stents Status post ablation of atrial fibrillation (2013) [facility] Family History Other No family history of adverse response to anesthesia Social History Smoking Status: Never smoker Second Hand Exposure: No; Do You Dip or Chew Tobacco: No; Hx Alcohol Use: Yes Alcohol type: hard liquor Hx Substance Use: No Preferred Language: Polish Communication Ability: Effective Marketing Secretary Required: No Beliefs That Will Affect Care: None Current Living Situation: Spouse Feels Safe at Home: Yes Assistive Devices: Walker Allergies Allergies Allergy/AdvReac Type Severity Reaction Status Date / Time adhesive Allergy Mild Rash Verified 08/14/25 23:40 amlodipine AdvReac Intermediate Leg Verified 08/14/25 23:40 swelling gluten AdvReac Intermediate GI Verified 08/14/25 23:40 reactions Home Meds Home Medications Medication Instructions Recorded Confirmed olmesartan 40 mg tablet 40 mg PO QAM 12/05/20 08/14/25 rivaroxaban 20 mg tablet (Xarelto) 20 mg PO PM 12/05/20 08/14/25 allopurinol 300 mg tablet 300 mg PO QAM 06/05/25 08/14/25 cetirizine 10 mg tablet (Zyrtec) 10 mg PO DAILY PRN allergies 06/05/25 08/14/25 chlorthalidone 25 mg tablet 25 mg PO QAM 06/05/25 08/14/25 hydralazine 50 mg tablet 50 mg PO BID 06/05/25 08/14/25 magnesium oxide 400 mg PO HS 06/05/25 08/14/25 potassium chloride 20 mEq 20 meq PO HS 06/05/25 08/14/25 tablet,extended release Previous Rx's Medication Instructions Recorded acetaminophen 500 mg tablet 1,000 mg (2 x 500 mg) PO Q8H #90 08/08/25 (Tylenol Extra Strength) tabs cefadroxil 500 mg capsule 500 mg PO Q12H #28 caps 08/08/25 oxycodone 5 mg tablet 5 mg PO Q4H PRN pain #30 tabs 08/08/25 Results & Data (ED) Vital Signs Vital Signs - 24 hr 08/14/25 21:19 08/14/25 21:28 08/14/25 21:28 Temperature 37.8 C H 37.8 C H 37.8 C H Temperature Source Oral Oral Oral Pulse Rate 93 H 90 Pulse Rate [Apical] 89 Pulse Rhythm Regular Regular Pulse Rhythm [Apical] Regular Pulse Strength Normal Normal Pulse Strength [Apical] Normal Respiratory Rate 18 16 16 Respiratory Effort / Characteristics Non-Labored Spontaneous Non-Labored Spontaneous Non-Labored Respiratory Depth Normal Normal Normal Respiratory Pattern Regular Regular Regular Blood Pressure 123/76 132/78 Blood Pressure [Right Arm] 123/76 Blood Pressure Mean 91 96 Blood Pressure Mean [Right Arm] 91 Blood Pressure Position Semi-fowlers Semi-fowlers Blood Pressure Position [Right Arm] Semi-fowlers Pulse Oximetry 96 95 95 Oxygen Delivery Method Room Air Room Air Room Air Oxygen Flow Rate Sepsis Recent Fever Within 48 Hours Yes Yes Sepsis New/Unexplained Change in Mental Status No No Sepsis Action Taken by Nursing No Action Required No Action Required 08/14/25 21:34 08/14/25 22:00 08/14/25 22:11 Temperature Temperature Source Pulse Rate 92 H 84 Pulse Rate [Apical] Pulse Rhythm Pulse Rhythm [Apical] Pulse Strength Pulse Strength [Apical] Respiratory Rate 20 Respiratory Effort / Characteristics Respiratory Depth Respiratory Pattern Blood Pressure 116/67 Blood Pressure [Right Arm] Blood Pressure Mean 83 Blood Pressure Mean [Right Arm] Blood Pressure Position Blood Pressure Position [Right Arm] Pulse Oximetry 98 94 Oxygen Delivery Method Room Air Room Air Oxygen Flow Rate Sepsis Recent Fever Within 48 Hours Sepsis New/Unexplained Change in Mental Status Sepsis Action Taken by Nursing 08/14/25 23:08 08/15/25 00:00 08/15/25 00:56 Temperature 37.2 C Temperature Source Oral Pulse Rate Pulse Rate [Apical] 86 88 Pulse Rhythm Pulse Rhythm [Apical] Regular Pulse Strength Pulse Strength [Apical] Respiratory Rate 20 16 Respiratory Effort / Characteristics Non-Labored Respiratory Depth Normal Respiratory Pattern Blood Pressure Blood Pressure [Right Arm] 126/75 136/94 Blood Pressure Mean Blood Pressure Mean [Right Arm] 92 108 Blood Pressure Position Blood Pressure Position [Right Arm] Pulse Oximetry 92 93 Oxygen Delivery Method Room Air Room Air Nasal Cannula Oxygen Flow Rate 2 Sepsis Recent Fever Within 48 Hours Sepsis New/Unexplained Change in Mental Status Sepsis Action Taken by Nursing Laboratory Data 08/14/25 22:06 08/14/25 22:06 Lab Results 08/14/25 08/14/25 08/14/25 Range/Units 21:57 22:06 22:36 WBC 13.48 H (4.8-10.8) K/ul RBC 3.62 L (4.20-5.40) M/uL Hgb 10.4 L (12.0-16.0) g/dl Hct 32.6 L (37.0-47.0) % MCV 90.1 (80.0-100.0) fL MCH 28.7 (25.0-34.0) pg MCHC 31.9 L (32.0-36.0) g/dL RDW Std Deviation 47.0 H (36.4-46.3) fL RDW Coeff of Evy 14.2 (11.5-14.5) % Plt Count 242 (130-400) K/uL MPV 11.8 (9.4-12.4) fL Immature Gran % (Auto) 1.1 % Neut % (Auto) 69.6 % Lymph % (Auto) 8.3 % Hinds % (Auto) 19.8 % Eos % (Auto) 0.9 % Baso % (Auto) 0.3 % Neut # (Auto) 9.38 H (1.40-6.50) K/uL Lymph # (Auto) 1.12 L (1.20-3.40) K/uL Hinds # (Auto) 2.67 H (0.11-0.59) K/uL Eos # (Auto) 0.12 (0.00-0.50) K/uL Baso # (Auto) 0.04 (0.00-0.20) K/uL Immature Gran # (Auto) 0.15 (0.01-0.20) K/uL PT Cancelled INR Cancelled Sodium 132 L (136-145) mmol/L Potassium 3.6 (3.5-5.1) mmol/L Chloride 93 L (98-107) mmol/L Carbon Dioxide 33 H (21-32) mmol/L Anion Gap 6 (3-11) BUN 14 (6-23) mg/dl Creatinine 1.15 (0.6-1.2) mg/dl Est Cr Clr Drug Dosing 64.2 ml/min eGFR 51.25 BUN/Creatinine Ratio 12.2 (10-20) Glucose 117 H (70-99(Fasting)) mg/dl Calcium 9.3 (8.6-10.3) mg/dl Total Bilirubin 0.6 (0.2-1.0) mg/dl AST 11 L (13-39) U/L ALT 6 L (7-52) U/L Alkaline Phosphatase 39 (34-104) U/L Total Protein 6.4 (6.0-8.3) gm/dl Albumin 3.6 (3.4-5.0) gm/dl Globulin 2.8 (2.5-4.0) gm/dl Albumin/Globulin Ratio 1.3 (0.9-2) Urine Color Yellow Urine Appearance Clear (Clear) Urine pH 7.5 (4.5-7.5) Ur Specific [place] 1.017 (1.000-1.030) Urine Protein Negative (Negative) Urine Glucose (UA) Negative (Negative) Urine Ketones Negative (Negative) Urine Blood Negative (Negative) Urine Nitrite Negative (Negative) Urine Bilirubin Negative (Negative) Urine Urobilinogen Negative (Negative) Ur Leukocyte Esterase Negative (Negative) Urine Comment SARS-CoV-2 (PCR) NEGATIVE (Negative) Influenza Type A (PCR) Negative (Neg) Influenza Type B (PCR) Negative (Neg) RSV (RT-PCR) Negative (Neg) Administered Medications Vancomycin HCl 2,500 mg/ (Sodium Chloride) 550 mls @ 200 mls/hr IV NOW ONE Stop: 08/15/25 02:10 Last Admin: 08/15/25 00:11 Dose: 200 mls/hr Documented By: NAW Discontinued Medications Sodium Chloride (Nss) 500 mls @ 999 mls/hr IV .Q31M STA Stop: 08/14/25 22:07 Last Infusion: 08/14/25 23:17 Dose: Infused Documented By: ruchi Admin: 08/14/25 22:14 Dose: 999 mls/hr Documented By: ruchi Cefepime HCl (Maxipime 2000mg) 2,000 mg in 20 mls @ 5 mls/min IV NOW STA; Protocol Stop: 08/14/25 23:30 Last Admin: 08/15/25 00:11 Dose: 5 mls/min Documented By: JOSE Imaging Data Radiologist's Impression: Ankle X-Ray 08/14/25 21:44 Exam(s): XR LEFT ANKLE, 3+ views EXAM: XR Left Ankle Complete, 3 or More Views CLINICAL HISTORY: Reason for exam: dorsal foot and lateral ankle pain. TECHNIQUE: Frontal, lateral and oblique views of the left ankle. COMPARISON: No relevant prior studies available. FINDINGS: Bones/joints: No acute fracture or dislocation. Corticated ossicles fibular tip and adjacent to the lateral talus consistent with old avulsion fractures. Mild tibiotalar osteoarthritis. Mild posterior and plantar calcaneal enthesopathy. Soft tissues: Lateral soft tissue swelling suggesting ankle sprain. IMPRESSION: Lateral soft tissue swelling suggesting ankle sprain. No acute osseous findings. Chronic posttraumatic changes lateral ankle. Electronically signed by: Maru Jennings M.D. 08/14/25 22:57 PM Foot X-Ray 08/14/25 21:44 Exam(s): XR LEFT FOOT, 3+ views EXAM: XR Left Foot Complete, 3 or More Views CLINICAL HISTORY: Reason for exam: dorsal foot pain. TECHNIQUE: Frontal, lateral and oblique views of the left foot. COMPARISON: 10/19/2023 FINDINGS: Bones/joints: Mild calcaneal enthesopathy. No acute fracture or dislocation. Soft tissues: Unremarkable. No radiopaque foreign body. IMPRESSION: No acute findings in the left foot. Electronically signed by: Maru Jennings M.D. 08/14/25 22:57 PM Venous Doppler Study 08/14/25 21:44 Exam(s): US VENOUS LEFT LOWER EXTREMITY EXAM: US Duplex Left Lower Extremity Veins CLINICAL HISTORY: Reason for exam: swelling/pain, eval for dvt. TECHNIQUE: Real-time duplex ultrasound scan of the left lower extremity veins integrating B-mode two-dimensional vascular structure, Doppler spectral analysis, color flow Doppler imaging and compression. COMPARISON: No relevant prior studies available. FINDINGS: Deep veins: No DVT in the visualized common femoral, femoral, proximal deep femoral or popliteal veins. The veins demonstrate normal color flow, are normally compressible, with normal phasic flow and/or augmentation response. Superficial veins: No thrombus in the visualized great saphenous vein. Soft tissues: Soft tissue edema at the calf. IMPRESSION: No evidence of acute DVT. Electronically signed by: aMru Jennings M.D. 08/14/25 23:28 PM Knee X-Ray 08/14/25 21:48 Exam(s): XR LEFT KNEE, 1-2 views EXAM: XR Left Knee, 1 or 2 Views CLINICAL HISTORY: Reason for exam: leg pain POD 6. TECHNIQUE: Frontal and/or lateral views of the left knee. COMPARISON: 08/08/2025 FINDINGS/IMPRESSION: Total knee arthroplasty with cemented tibial component. No fracture, dislocation, or hardware complication. Persistent soft tissue and intra-articular gas, decreased in volume when compared to prior. Anterior skin closure richard. Surgical drain has been removed. Electronically signed by: Maru Jennings M.D. 08/14/25 22:58 PM Discharge Plan Visit Data Chief Complaint: Knee Injury/Pain Stated Complaint: KNEE REPLACED 6 DAYS AGO, FEVER, CHILLS, WEAKNESS ED Provider: Nikita Downing Discharge Problem: Fever Patient Disposition: Admitted As Inpatient Condition: Fair Forms Stand Alone Forms: [facility] Prescriptions Prescriptions: No Action olmesartan 40 mg tablet 40 mg PO QAM Xarelto 20 mg tablet 20 mg PO PM cetirizine [Zyrtec] 10 mg Tablet 10 mg PO DAILY PRN (Reason: allergies) chlorthalidone 25 mg Tablet 25 mg PO QAM allopurinol 300 mg Tablet 300 mg PO QAM hydralazine 50 mg Tablet 50 mg PO BID magnesium oxide 400 mg magnesium Capsule 400 mg PO HS potassium chloride 20 mEq Tablet Extended Release 20 meq PO HS cefadroxil 500 mg capsule 500 mg PO Q12H Qty: 28 0RF Rx Instructions: STARTED 08/10/25 FOR 14 DAYS oxycodone 5 mg tablet 5 mg PO Q4H PRN (Reason: pain) Qty: 30 0RF acetaminophen [Tylenol Extra Strength] 500 mg tablet 1,000 mg PO Q8H Qty: 90 0RF Referrals Referrals: Julius Koehler MD [Primary Care Provider] - Discharge Problem: Fever Qualifiers: Fever type: unspecified Qualified Code(s): R50.9 - Fever, unspecified
[2025-08-14] MEDS: SODIUM CHLORIDE 0.9% 500 ML IV STA (22:14)
[2025-08-14 22:25] LABS: Hematocrit (blood only) 32.6 % (37.0-47.0); Hemoglobin 10.4 g/dl (12.0-16.0); Immature Granulocytes # (auto) 0.15 K/uL (0.01-0.20); Immature Granulocytes % (auto) 1.1 %; Mean Corpuscular Hemoglobin 28.7 pg (25.0-34.0); Mean Corpuscular Volume 90.1 fL (80.0-100.0); Platelet Count 242 K/uL (130-400); RDW Standard Deviation 47.0 fL (36.4-46.3); Red Blood Count 3.62 M/uL (4.20-5.40); White Blood Count 13.48 K/ul (4.8-10.8)
[2025-08-14 22:44] LABS: Alanine Aminotransferase 6.0 U/L (7-52); Albumin Globulin Ratio 1.3 (0.9-2); Albumin Level 3.6 gm/dl (3.4-5.0); Alkaline Phosphatase 39.0 U/L (34-104); Anion Gap 6.0 (3-11); Bilirubin,Total 0.6 mg/dl (0.2-1.0); Blood Urea Nitrogen 14.0 mg/dl (6-23); Calcium 9.3 mg/dl (8.6-10.3); Carbon Dioxide 33.0 mmol/L (21-32); Chloride 93.0 mmol/L (98-107); Creatinine Clr Calc Pharmacy 64.2 ml/min; Globulin 2.8 gm/dl (2.5-4.0); Glucose 117.0 mg/dl (70-99(Fasting)); Potassium 3.6 mmol/L (3.5-5.1); Sodium 132.0 mmol/L (136-145); Total Protein 6.4 gm/dl (6.0-8.3)
[2025-08-14 22:56] LABS: Appearance Urine Clear (Clear); Glucose Urine UA Negative (Negative)
--- NOTE | 2025-08-14 22:58 | XRay Report ---
Exam(s): XR LEFT ANKLE, 3+ views EXAM: XR Left Ankle Complete, 3 or More Views CLINICAL HISTORY: Reason for exam: dorsal foot and lateral ankle pain. TECHNIQUE: Frontal, lateral and oblique views of the left ankle. COMPARISON: No relevant prior studies available. FINDINGS: Bones/joints: No acute fracture or dislocation. Corticated ossicles fibular tip and adjacent to the lateral talus consistent with old avulsion fractures. Mild tibiotalar osteoarthritis. Mild posterior and plantar calcaneal enthesopathy. Soft tissues: Lateral soft tissue swelling suggesting ankle sprain. IMPRESSION: Lateral soft tissue swelling suggesting ankle sprain. No acute osseous findings. Chronic posttraumatic changes lateral ankle. Electronically signed by: Maru Jennings M.D. 08/14/25 22:57 PM
--- NOTE | 2025-08-14 22:58 | XRay Report ---
Exam(s): XR LEFT FOOT, 3+ views EXAM: XR Left Foot Complete, 3 or More Views CLINICAL HISTORY: Reason for exam: dorsal foot pain. TECHNIQUE: Frontal, lateral and oblique views of the left foot. COMPARISON: 10/19/2023 FINDINGS: Bones/joints: Mild calcaneal enthesopathy. No acute fracture or dislocation. Soft tissues: Unremarkable. No radiopaque foreign body. IMPRESSION: No acute findings in the left foot. Electronically signed by: Maru Jennings M.D. 08/14/25 22:57 PM
--- NOTE | 2025-08-14 23:00 | XRay Report ---
Exam(s): XR LEFT KNEE, 1-2 views EXAM: XR Left Knee, 1 or 2 Views CLINICAL HISTORY: Reason for exam: leg pain POD 6. TECHNIQUE: Frontal and/or lateral views of the left knee. COMPARISON: 08/08/2025 FINDINGS/IMPRESSION: Total knee arthroplasty with cemented tibial component. No fracture, dislocation, or hardware complication. Persistent soft tissue and intra-articular gas, decreased in volume when compared to prior. Anterior skin closure richard. Surgical drain has been removed. Electronically signed by: Maru Jennings M.D. 08/14/25 22:58 PM
[2025-08-14] MEDS ORDERED: VANCOMYCIN CONSULT ACTIVE PRN (23:26)
--- NOTE | 2025-08-14 23:29 | Ultrasound Report ---
Exam(s): US VENOUS LEFT LOWER EXTREMITY EXAM: US Duplex Left Lower Extremity Veins CLINICAL HISTORY: Reason for exam: swelling/pain, eval for dvt. TECHNIQUE: Real-time duplex ultrasound scan of the left lower extremity veins integrating B-mode two-dimensional vascular structure, Doppler spectral analysis, color flow Doppler imaging and compression. COMPARISON: No relevant prior studies available. FINDINGS: Deep veins: No DVT in the visualized common femoral, femoral, proximal deep femoral or popliteal veins. The veins demonstrate normal color flow, are normally compressible, with normal phasic flow and/or augmentation response. Superficial veins: No thrombus in the visualized great saphenous vein. Soft tissues: Soft tissue edema at the calf. IMPRESSION: No evidence of acute DVT. Electronically signed by: Maru Jennings M.D. 08/14/25 23:28 PM
[2025-08-14 23:57] LABS: Influenza A virus by PCR Negative (Neg); Influenza B virus by PCR Negative (Neg); SARS CoV2 RNA(COVID-19) Ceph NEGATIVE (Negative)
[2025-08-15] MEDS: VANCOMYCIN HCL 2,500 MG in SODIUM CHLORIDE 0.9% 500 ML IV ONE (00:11)
[2025-08-15] MEDS: CEFEPIME 2000MG 2,000 MG/20 ML SYR IV STA (00:11)
--- NOTE | 2025-08-15 00:59 | Orthopedic Consultation ---
Date of Consultation August 15, 2025 Assessment & Plan (1) Ankle pain, left: - Patient does have swelling about the left ankle, she has pain with active and passive range of motion and weightbearing. She has a history of gout. She does not have any history of septic arthritis. Currently my differential diagnosis includes septic arthritis of the left ankle versus gout. ESR, CRP, uric acid levels pending. Patient did have a recent total knee arthroplasty. The knee incision looks benign. There is no evidence of any infection about the left knee joint at this time. The patient did have a recent root canal that was infected she was treated with antibiotics. She does have a history of gout in this foot primarily it has attacked her toe in the past. She is on allopurinol at baseline. - Has been started on Cefepime and Vancomycin - Check ESR, CRP, uric acid - WBC 13.48 - May weight-bear as tolerated left lower extremity - Ice left ankle - Elevate left lower extremity - N.p.o. in case need for surgery - Depending on what labs show would consider ankle aspiration. In the setting of recent total knee, I think it is appropriate to delay an aspiration until discussion with Dr. Delgado in the morning as he may have concerns with potential for complications to the total knee with ankle aspiration and potential for bacterial seeding. -Will continue to monitor, will discuss patient with Dr. Delgado later this morning. (2) Status post total left knee replacement: -WBAT L LE -Ice L Knee PRN -Monitor for any signs of infection, currently no overt signs/symptoms of infectious process in TKA. History of Present Illness History of Present Illness Patient is a 70-year-old female past medical history of gout, A-fib on Xarelto, CKD, and recent left total knee arthroplasty performed on 08/08/[address] Gabe Avila. Patient reports that earlier today she stood she got lightheaded and blacked out and fell. She is not exactly sure why this happened. She has recently been having increasing left ankle pain. She also complains of fevers and chills. States that the knee has been doing well she denies any redness about the knee or any drainage from the incision site. She has been having left ankle pain ongoing for about 2 days. She does have a history of gout states that usually it is in the area of her toes. She is on allopurinol at baseline. She denies any numbness or tingling of the left lower extremity. Complains of pain about the lateral aspect of her left ankle. she denies any history of septic arthritis. Pain seems to be worse in her left foot and ankle when she walks and weightbears. Denies any history of recent injury including twisting or sprains. Allergies Allergy/AdvReac Type Severity Reaction Status Date / Time adhesive Allergy Mild Rash Verified 08/14/25 23:40 amlodipine AdvReac Intermediate Leg Verified 08/14/25 23:40 swelling gluten AdvReac Intermediate GI Verified 08/14/25 23:40 reactions Home Medications Medication Instructions Recorded Confirmed Type olmesartan 40 mg tablet 40 mg PO QAM 12/05/20 08/14/25 History rivaroxaban 20 mg tablet (Xarelto) 20 mg PO PM 12/05/20 08/14/25 History allopurinol 300 mg tablet 300 mg PO QAM 06/05/25 08/14/25 History cetirizine 10 mg tablet (Zyrtec) 10 mg PO DAILY PRN allergies 06/05/25 08/14/25 History chlorthalidone 25 mg tablet 25 mg PO QAM 06/05/25 08/14/25 History hydralazine 50 mg tablet 50 mg PO BID 06/05/25 08/14/25 History magnesium oxide 400 mg PO HS 06/05/25 08/14/25 History potassium chloride 20 mEq 20 meq PO HS 06/05/25 08/14/25 History tablet,extended release acetaminophen 500 mg tablet 1,000 mg (2 x 500 mg) PO Q8H #90 08/08/25 08/14/25 Rx (Tylenol Extra Strength) tabs cefadroxil 500 mg capsule 500 mg PO Q12H #28 caps 08/08/25 08/14/25 Rx oxycodone 5 mg tablet 5 mg PO Q4H PRN pain #30 tabs 08/08/25 08/14/25 Rx Patient History Medical History History of root canal treatment (07/24/25) had infection after root canal- finished abx yesterday 08/02/25- had last surgery cancelled for this reason Arthritis Hx of gout Acid reflux Hx of squamous cell carcinoma Hx of basal cell carcinoma Atrial fibrillation Taking Xarelto Follows with Dr. Sweet Hypertension Asthma Controlled, No current inhaler Morbid obesity Surgical History History of cholecystectomy History of hysterectomy History of total knee replacement (2016) Right TKA: SAB at L3-4 + regional at [facility] History of colonoscopy History of repair of hiatal hernia S/P Mohs surgery for basal cell carcinoma Chin area History of tooth extraction History of tonsillectomy History of cardiac cath (2013) 2013- [place]- no mi- no stents Status post ablation of atrial fibrillation (2013) [facility] Family History Other No family history of adverse response to anesthesia Social History Smoking Status: Never smoker Second Hand Exposure: No; Do You Dip or Chew Tobacco: No; Hx Alcohol Use: Yes Alcohol type: hard liquor Hx Substance Use: No Preferred Language: Ukrainian Communication Ability: Effective Hand Presser Required: No Beliefs That Will Affect Care: None Current Living Situation: Spouse Feels Safe at Home: Yes Assistive Devices: Walker Physical Exam 2 Physical Exam: General: Patient is awake, alert, in no acute distress. She is currently afebrile and vital signs are stable. Musculoskeletal: Left lower extremity: -Anterior midline left total knee incisi on well-approximated without any erythema, drainage, or dehiscence. Surgical richard are in place. -Calf is soft and nontender - EHL/FHL/GS/TA are motor intact - Patient has moderate swelling about th e medial and lateral aspects of the left ankle. She has pain with passive and active range of motion including ankle plantar and dorsiflexion. She has tenderness to palpation over the lateral ankle soft tissues. - Stable anterior drawer - Negative talar tilt - DP/PT pulses are palpable - Sensation is intact to light touch in the L4-S1 dermatomes. Results & Data Vital Signs (Past 12 Hours) Vital Signs Temp Pulse Pulse Resp BP BP Pulse Ox 08/15/25 00:00 37.2 C 88 16 136/94 93 08/14/25 23:08 86 20 126/75 92 08/14/25 22:11 94 08/14/25 22:00 84 20 116/67 98 08/14/25 21:34 92 H 08/14/25 21:28 37.8 C H 89 16 123/76 95 08/14/25 21:28 37.8 C H 90 16 132/78 95 08/14/25 21:19 37.8 C H 93 H 18 123/76 96 O2 Del Method 08/15/25 00:00 Room Air 08/14/25 23:08 Room Air 08/14/25 22:11 Room Air 08/14/25 22:00 Room Air 08/14/25 21:34 08/14/25 21:28 Room Air 08/14/25 21:28 Room Air 08/14/25 21:19 Room Air (1) Ankle pain, left Chronicity: acute Qualified Code(s): M25.572 - Pain in left ankle and joints of left foot
--- NOTE | 2025-08-15 01:18 | History & Physical Report ---
Date of Service August 15, 2025 Assessment & Plan (1) Ankle pain, left: (2) Fever: (3) Status post total left knee replacement: (4) Paroxysmal atrial fibrillation: (5) Hypertension: (6) Acid reflux: Plan 70yo female with history of atrial fibrillation on Xarelto anticoagulation, HTN, GERD, Asthma and Gout presenting with severe pain in the left ankle and dorsum of the foot ongoing for the last day. Atraumatic. #Left ankle pain/Fever - patient with severe pain of the left ankle and dorsum of the foot. Very tender to touch, mildly warm and edema on the lateral aspect. No trauma. She does have a history of gout that has involved the left foot in the past. Could possibly be acute gout? -Admit to Medical -Check ESR, CRP, Uric Acid - ordered by Orthopedic Surgery -Rest, ice and elevate LLE - weight bear as tolerated -Tylenol 1gm po [id number] and Oxycodone PRN -Orthopedic Surgery consultation appreciated -Empiric coverage with Ceftriaxone and Vancomycin -LR at 80mL/hr x 1L -PT/OT evaluation #Possible gout -Check Uric Acid level -Colchicine 1.2mg po now then 0.6mg po BID for management of presumed gout attack. Want to avoid steroids due to delay in wound healing, recent surgery -Continue Allopurinol -Orthopedic Surgery consultation appreciated #Syncope - patient reports passing out earlier today while transferring to bedside commode. No chest pain or other complaints -Check orthostatic VS -Fall precautions #S/P left TKA - POD#6 - no complications identified. Minimal pain in the left knee -Oxycodone 5mg po q 4 hours as needed -Tylenol PRN #Paroxysmal atrial fibrillation - rate controlled, on anticoagulation -Continue Rivaroxaban #Hypertension - blood pressure well controlled -Continue Chlorthalidone -Continue Hydralazine -Continue Olmesartan #DVT Prophylaxis - Apixaban History of Present Illness Chief Complaint: left ankle pain Primary Care Provider: Julius Koehler MD Shivani Mishra is a pleasant 70yo female with history of HTN, Atrial Fibrillation on Xarelto anticoagulation and well controlled asthma presenting with acute progressive pain of the left ankle and dorsum of the left foot. Patient had a left TKA performed by Dr. Avila on 08/08/25. The surgery was well tolerated with no complications. She was discharged home on 08/09/25 with Oxycodone and Cefadroxil. Patient presents this evening with severe, throbbing pain in her left ankle as well as the dorsum of the left foot. She denies falls or trauma. No new footwear or strain. Pain very severe - patient unable to ambulate. Her set up a bedside commode to help her. This evening patient did have a syncopal event while transferring to the commode. She denies chest pain, SOB. She has minimal pain in the left knee. No redness, drainage or dehiscence. [place] are still in place. Some mild nausea and chills today otherwise with no complaints. EMS noted an elevated temperature at 100 degrees today. In the ER she is afebrile, HD stable, NAD ER Course: NSS x 500mL Vancomycin Cefepime Allergies Allergy/AdvReac Type Severity Reaction Status Date / Time adhesive Allergy Mild Rash Verified 08/14/25 23:40 amlodipine AdvReac Intermediate Leg Verified 08/14/25 23:40 swelling gluten AdvReac Intermediate GI Verified 08/14/25 23:40 reactions Home Medications Medication Instructions Recorded Confirmed Type olmesartan 40 mg tablet 40 mg PO QAM 12/05/20 08/14/25 History rivaroxaban 20 mg tablet (Xarelto) 20 mg PO PM 12/05/20 08/14/25 History allopurinol 300 mg tablet 300 mg PO QAM 06/05/25 08/14/25 History cetirizine 10 mg tablet (Zyrtec) 10 mg PO DAILY PRN allergies 06/05/25 08/14/25 History chlorthalidone 25 mg tablet 25 mg PO QAM 06/05/25 08/14/25 History hydralazine 50 mg tablet 50 mg PO BID 06/05/25 08/14/25 History magnesium oxide 400 mg PO HS 06/05/25 08/14/25 History potassium chloride 20 mEq 20 meq PO HS 06/05/25 08/14/25 History tablet,extended release acetaminophen 500 mg tablet 1,000 mg (2 x 500 mg) PO Q8H #90 08/08/25 08/14/25 Rx (Tylenol Extra Strength) tabs cefadroxil 500 mg capsule 500 mg PO Q12H #28 caps 08/08/25 08/14/25 Rx oxycodone 5 mg tablet 5 mg PO Q4H PRN pain #30 tabs 08/08/25 08/14/25 Rx Past Med/Surg History Problem List Fever (Acute) Status post total left knee replacement Ankle pain, left Osteoarthritis of left knee Paroxysmal atrial fibrillation Hypertension Asthma Right knee DJD Medical History History of root canal treatment (07/24/25) had infection after root canal- finished abx yesterday 08/02/25- had last surgery cancelled for this reason Arthritis Hx of gout Acid reflux Hx of squamous cell carcinoma Hx of basal cell carcinoma Atrial fibrillation Taking Xarelto Follows with Dr. Sweet Hypertension Asthma Controlled, No current inhaler Morbid obesity Surgical History History of cholecystectomy History of hysterectomy History of total knee replacement (2016) Right TKA: SAB at L3-4 + regional at [facility] History of colonoscopy History of repair of hiatal hernia S/P Mohs surgery for basal cell carcinoma Chin area History of tooth extraction History of tonsillectomy History of cardiac cath (2013) 2013- [place]- no mi- no stents Status post ablation of atrial fibrillation (2013) [facility] Family History Other No family history of adverse response to anesthesia Social History Smoking Status: Never smoker Second Hand Exposure: No; Do You Dip or Chew Tobacco: No; Hx Alcohol Use: Yes Alcohol type: hard liquor Hx Substance Use: No Preferred Language: Algerian Communication Ability: Effective [employer] Supervisor Required: No Beliefs That Will Affect Care: None Current Living Situation: Spouse Feels Safe at Home: Yes Assistive Devices: Walker Review of Systems Review of Systems: All systems reviewed & are unremarkable except as noted in HPI & below Physical Exam Physical Exam: General: patient resting comfortably, NAD, non-toxic in appearance, AA&O x 4 HEENT: NC/AT, PERRL, EOMI, anicteric sclera, conjunctiva without injection, external ear normal to inspection and nontender, nares patent, moist mucus membranes, dentition intact, no oropharyngeal lesions, neck supple, trachea midline, no LAD, no thyromegaly, no JVD Heart: +S1/S2, regular, no m/r/g Lungs: equal air entry bilaterally, no rales/rhonchi/wheezes Abd: +BS, soft, NT/ND, no masses/organomegaly/ascites Ext: left knee with richard in place, some edema and bruising, no bleeding/drainage/erythema or dehiscence. Left ankle swollen over lateral malleolus. Very tender to touch, slightly warm to touch. Tenderness on the dorsum of the left foot. Neuro: nonfocal, patient AA&O x 4, speech intact, no facial droop, moving all extremities on command with equal strength 5/5 Results & Data Results & Data Vital Signs (Past 12 Hours) Vital Signs Temp Pulse Pulse Resp BP BP Pulse Ox 08/15/25 00:56 08/15/25 00:00 37.2 C 88 16 136/94 93 08/14/25 23:08 86 20 126/75 92 08/14/25 22:11 94 08/14/25 22:00 84 20 116/67 98 08/14/25 21:34 92 H 08/14/25 21:28 37.8 C H 89 16 123/76 95 08/14/25 21:28 37.8 C H 90 16 132/78 95 08/14/25 21:19 37.8 C H 93 H 18 123/76 96 O2 Del Method O2 Flow Rate 08/15/25 00:56 Nasal Cannula 2 08/15/25 00:00 Room Air 08/14/25 23:08 Room Air 08/14/25 22:11 Room Air 08/14/25 22:00 Room Air 08/14/25 21:34 08/14/25 21:28 Room Air 08/14/25 21:28 Room Air 08/14/25 21:19 Room Air Laboratory Results Laboratory Results WBC 13.48 K/ul (4.8-10.8) H 08/14/25 22:06 RBC 3.62 M/uL (4.20-5.40) L 08/14/25 22:06 Hgb 10.4 g/dl (12.0-16.0) L 08/14/25 22:06 Hct 32.6 % (37.0-47.0) L 08/14/25 22:06 MCV 90.1 fL (80.0-100.0) 08/14/25 22:06 MCH 28.7 pg (25.0-34.0) 08/14/25 22:06 MCHC 31.9 g/dL (32.0-36.0) L 08/14/25 22:06 RDW Std Deviation 47.0 fL (36.4-46.3) H 08/14/25 22:06 RDW Coeff of Evy 14.2 % (11.5-14.5) 08/14/25 22:06 Plt Count 242 K/uL (130-400) 08/14/25 22:06 MPV 11.8 fL (9.4-12.4) 08/14/25 22:06 Immature Gran % (Auto) 1.1 % 08/14/25 22:06 Neut % (Auto) 69.6 % 08/14/25 22:06 Lymph % (Auto) 8.3 % 08/14/25 22:06 [place] % (Auto) 19.8 % 08/14/25 22:06 Eos % (Auto) 0.9 % 08/14/25 22:06 Baso % (Auto) 0.3 % 08/14/25 22:06 Neut # (Auto) 9.38 K/uL (1.40-6.50) H 08/14/25 22:06 Lymph # (Auto) 1.12 K/uL (1.20-3.40) L 08/14/25 22:06 [place] # (Auto) 2.67 K/uL (0.11-0.59) H 08/14/25 22:06 Eos # (Auto) 0.12 K/uL (0.00-0.50) 08/14/25 22:06 Baso # (Auto) 0.04 K/uL (0.00-0.20) 08/14/25 22:06 Immature Gran # (Auto) 0.15 K/uL (0.01-0.20) 08/14/25 22:06 ESR 45 mm/hr (0-30) H 08/15/25 01:19 PT 11.3 Seconds (9.0-12.0) 08/15/25 01:19 INR 1.1 (0.9-1.1) 08/15/25 01:19 Sodium 132 mmol/L (136-145) L 08/14/25 22:06 Potassium 3.6 mmol/L (3.5-5.1) 08/14/25 22:06 Chloride 93 mmol/L (98-107) L 08/14/25 22:06 Carbon Dioxide 33 mmol/L (21-32) H 08/14/25 22:06 Anion Gap 6 (3-11) 08/14/25 22:06 BUN 14 mg/dl (6-23) 08/14/25 22:06 Creatinine 1.15 mg/dl (0.6-1.2) 08/14/25 22:06 Est Cr Clr Drug Dosing 64.2 ml/min 08/14/25 22:06 eGFR 51.25 08/14/25 22:06 BUN/Creatinine Ratio 12.2 (10-20) 08/14/25 22:06 Glucose 117 mg/dl (70-99(Fasting)) H 08/14/25 22:06 Uric Acid 5.2 mg/dl (2.6-7.2) 08/15/25 01:19 Calcium 9.3 mg/dl (8.6-10.3) 08/14/25 22:06 Total Bilirubin 0.6 mg/dl (0.2-1.0) 08/14/25 22:06 AST 11 U/L (13-39) L 08/14/25 22:06 ALT 6 U/L (7-52) L 08/14/25 22:06 Alkaline Phosphatase 39 U/L (34-104) 08/14/25 22:06 C-Reactive Protein 9.51 mg/dl (0-0.5) H 08/15/25 01:19 Total Protein 6.4 gm/dl (6.0-8.3) 08/14/25 22:06 Albumin 3.6 gm/dl (3.4-5.0) 08/14/25 22:06 Globulin 2.8 gm/dl (2.5-4.0) 08/14/25 22:06 Albumin/Globulin Ratio 1.3 (0.9-2) 08/14/25 22:06 Urine Color Yellow 08/14/25 22:36 Urine Appearance Clear (Clear) 08/14/25 22:36 Urine pH 7.5 (4.5-7.5) 08/14/25 22:36 Ur Specific [place] 1.017 (1.000-1.030) 08/14/25 22:36 Urine Protein Negative (Negative) 08/14/25 22:36 Urine Glucose (UA) Negative (Negative) 08/14/25 22:36 Urine Ketones Negative (Negative) 08/14/25 22:36 Urine Blood Negative (Negative) 08/14/25 22:36 Urine Nitrite Negative (Negative) 08/14/25 22:36 Urine Bilirubin Negative (Negative) 08/14/25 22:36 Urine Urobilinogen Negative (Negative) 08/14/25 22:36 Ur Leukocyte Esterase Negative (Negative) 08/14/25 22:36 Urine Comment 08/14/25 22:36 SARS-CoV-2 (PCR) NEGATIVE (Negative) 08/14/25 21:57 Influenza Type A (PCR) Negative (Neg) 08/14/25 21:57 Influenza Type B (PCR) Negative (Neg) 08/14/25 21:57 RSV (RT-PCR) Negative (Neg) 08/14/25 21:57 Impressions Ankle X-Ray 08/14/25 21:44 Exam(s): XR LEFT ANKLE, 3+ views EXAM: XR Left Ankle Complete, 3 or More Views CLINICAL HISTORY: Reason for exam: dorsal foot and lateral ankle pain. TECHNIQUE: Frontal, lateral and oblique views of the left ankle. COMPARISON: No relevant prior studies available. FINDINGS: Bones/joints: No acute fracture or dislocation. Corticated ossicles fibular tip and adjacent to the lateral talus consistent with old avulsion fractures. Mild tibiotalar osteoarthritis. Mild posterior and plantar calcaneal enthesopathy. Soft tissues: Lateral soft tissue swelling suggesting ankle sprain. IMPRESSION: Lateral soft tissue swelling suggesting ankle sprain. No acute osseous findings. Chronic posttraumatic changes lateral ankle. Electronically signed by: Maru Jennings M.D. 08/14/25 22:57 PM Foot X-Ray 08/14/25 21:44 Exam(s): XR LEFT FOOT, 3+ views EXAM: XR Left Foot Complete, 3 or More Views CLINICAL HISTORY: Reason for exam: dorsal foot pain. TECHNIQUE: Frontal, lateral and oblique views of the left foot. COMPARISON: 10/19/2023 FINDINGS: Bones/joints: Mild calcaneal enthesopathy. No acute fracture or dislocation. Soft tissues: Unremarkable. No radiopaque foreign body. IMPRESSION: No acute findings in the left foot. Electronically signed by: Maru Jennings M.D. 08/14/25 22:57 PM Venous Doppler Study 08/14/25 21:44 Exam(s): US VENOUS LEFT LOWER EXTREMITY EXAM: US Duplex Left Lower Extremity Veins CLINICAL HISTORY: Reason for exam: swelling/pain, eval for dvt. TECHNIQUE: Real-time duplex ultrasound scan of the left lower extremity veins integrating B-mode two-dimensional vascular structure, Doppler spectral analysis, color flow Doppler imaging and compression. COMPARISON: No relevant prior studies available. FINDINGS: Deep veins: No DVT in the visualized common femoral, femoral, proximal deep femoral or popliteal veins. The veins demonstrate normal color flow, are normally compressible, with normal phasic flow and/or augmentation response. Superficial veins: No thrombus in the visualized great saphenous vein. Soft tissues: Soft tissue edema at the calf. IMPRESSION: No evidence of acute DVT. Electronically signed by: Maru Jennings M.D. 08/14/25 23:28 PM Knee X-Ray 08/14/25 21:48 Exam(s): XR LEFT KNEE, 1-2 views EXAM: XR Left Knee, 1 or 2 Views CLINICAL HISTORY: Reason for exam: leg pain POD 6. TECHNIQUE: Frontal and/or lateral views of the left knee. COMPARISON: 08/08/2025 FINDINGS/IMPRESSION: Total knee arthroplasty with cemented tibial component. No fracture, dislocation, or hardware complication. Persistent soft tissue and intra-articular gas, decreased in volume when compared to prior. Anterior skin closure richard. Surgical drain has been removed. Electronically signed by: Maru Jennings M.D. 08/14/25 22:58 PM Code Status & VTE Plan VTE Prophylaxis Plan VTE Prophylaxis will be ordered: Yes PG Care Time/CCT Total # of Minutes Spent Total Time Spent with Patient: Total time spent is greater than 50% in coordination of care (as documented) at patient's floor/unit and/or counseling patient: Coding Level of Care Code 78391 INT INP/OBS CARE 3/75MIN Diagnoses Acute left ankle pain M25.572 Chronicity: acute Fever R50.9 Fever type: unspecified Status post total left knee replacement Z96.652 Paroxysmal atrial fibrillation I48.0 Hypertension I10 Acid reflux K21.9 (1) Ankle pain, left Chronicity: acute Qualified Code(s): M25.572 - Pain in left ankle and joints of left foot (2) Fever Fever type: unspecified Qualified Code(s): R50.9 - Fever, unspecified
[2025-08-15 01:51] LABS: Uric Acid 5.2 mg/dl (2.6-7.2)
[2025-08-15 02:01] LABS: INR 1.1 (0.9-1.1); Prothrombin Time 11.3 Seconds (9.0-12.0)
[2025-08-15] MEDS: MoRPHine SULFATE 2 MG/ML CARP IV STA (02:31)
[2025-08-15] MEDS ORDERED: POLYETHYLENE (MIRALAX) 17 GM PACK PO PRN (06:02)
[2025-08-15] MEDS ORDERED: ONDANSETRON INJ 2 MG/ML 2 ML VIAL IV PRN (06:02)
[2025-08-15] MEDS ORDERED: DOCUSATE SODIUM 100 MG CAP PO PRN (06:02)
[2025-08-15] MEDS ORDERED: VANCOMYCIN CONSULT ACTIVE PRN (06:02)
[2025-08-15] MEDS ORDERED: VANCOMYCIN HCL / NSS 1,000 MG/270 ML BAG IV SCH (06:02)
[2025-08-15] MEDS ORDERED: cefTRIAXone SODIUM 2,000 MG/50 ML BAG IV SCH (06:30)
[2025-08-15] MEDS: cefTRIAXone SODIUM 2,000 MG/50 ML BAG IV ONE (06:33)
[2025-08-15] MEDS: COLCHICINE 0.6 MG TAB PO ONE (06:43)
[2025-08-15] MEDS: ACETAMINOPHEN 500 MG TAB PO SCH (06:44)
[2025-08-15] MEDS: LACTATED RINGER'S 1,000 ML IV SCH (07:17)
--- NOTE | 2025-08-15 07:51 | Procedure Note ---
Procedure Note Date of Service August 15, 2025 Note Procedure: Left ankle aspiration Patient was indicated for a left ankle aspiration given that she has significant ankle joint effusion with pain with weightbearing and passive and active range of motion. She does have a history of gout. She does have elevated ESR and CRP which can be seen in the immediate postoperative setting with her recent total knee arthroplasty done 1 week ago. In order to rule out a septic joint and optimize her treatment I recommended aspiration. We did discuss that she is on Xarelto and is at increased risk of bleeding however this is a small needle aspiration and I feel that the risk does not outweigh the benefit of aspiration. Informed consent was obtained, we discussed the risks, benefits, and alternatives to the procedure which was a left ankle aspiration. We discussed that there is risk of infection, pain, bleeding, nerve or blood vessel damage, stiffness. We discussed that the benefit of the procedure is that we can obtain more information to be able to analyze the fluid in the lab to evaluate if this is gout related or if this is an infectious process. We discussed alternative treatments which include observation, empiric antibiotics. We discussed that the optimal thing to do would be to aspirate the joint. She is in agreement with proceeding. Written consent was obtained. The intended procedure site was marked, patient's name and date of verified preprocedural timeout was performed with myself the patient and physician assistant auditor. Medial joint ankle aspiration was planned. Skin was cleansed with iodine and circumferential fashion 3 times. Area was draped with sterile towels. Using appropriate sterile technique with an 18-gauge needle I performed a medial ankle joint aspiration. Aspirated approximately 8 cc straw- colored fluid. Grossly the fluid was straw-colored with slight bloody tinge. There was an intact string sign. There was no immediate bleeding from the aspiration site. Aspiration site was covered with sterile Band-Aid. The fluid will be sent to the lab for crystal analysis, cultures, Gram stain, fungal, and Lyme testing. Patient will remain n.p.o. while we await lab results. Coding
[2025-08-15] MEDS: LOSARTAN POTASSIUM 50 MG TAB PO SCH (08:07)
[2025-08-15] MEDS: CHLORTHALIDONE 25 MG TAB PO SCH (08:07)
[2025-08-15] MEDS: COLCHICINE 0.6 MG TAB PO SCH (08:08)
--- NOTE | 2025-08-15 09:21 | Pharmacy Report ---
Pharmacy PK ABX Note - Date of Service August 15, 2025 - Assessment and Plan Assessment * 70 year old F receiving empiric ceftriaxone and vancomycin x48 hours each for treatment of septic joint/ankle (vs. acute gout flare). S/p ankle aspiration 08/15. Recent TKA 08/09 on a planned 14 day outpatient course of cefadroxil which started 08/10 * PMH: gout, atrial fibrillation on rivaroxaban * Pertinent microbiologic data includes: * 08/14 blood cultures pending * 08/15 L ankle culture pending * 08/15 synovial aspirate pending * SCr at/near baseline Plan Vancomycin * Loading dose: 2500 mg IV x 1 * Maintenance dose: 1500 mg IV daily@1800 x2 doses only for now * Regimen is predicted to achieve target AUC/KANDY of 400-600 mg/L.hr * Random level ordered for 10/3 AM, in case ongoing vancomycin is indicated past 48 hours Pharmacy will continue to follow and will adjust dose/frequency as necessary. Thank you. Pharmacy has transitioned to AUC monitoring for vancomycin. AUC/KANDY is the preferred PK/PD target and is associated with decreased risk of nephrotoxicity compared to traditional trough targets.
[2025-08-15 09:24] LABS: Color Synovial Fluid Amber; Mononuclear WBC Synovial 21.0 %; Polynuclear WBC Synovial 79.0 %; RBC Synovial Fluid Auto 30000 /uL; Source Synovial Fluid Other; WBC Synovial Fluid Auto 57880 /ul (0-200)
--- NOTE | 2025-08-15 11:41 | Communication Note ---
Date of Service: August 15, 2025 Synovial crystals positive for gout. Gram stain negative. Will switch her antibiotics back to post operative cefadroxil. Start naproxen for gout. NPO kasey josé manuel, patient can eat.
--- NOTE | 2025-08-15 12:27 | XRay Report ---
XR chest 1V portable CLINICAL HISTORY: shortness of breath, hypoxia COMPARISON STUDY: 06/13/2025 FINDINGS: There is mild cardiomegaly without pulmonary vascular congestion. No consolidation or pleur al effusion. No pneumothorax. IMPRESSION: No acute findings. ACT 112: Negative or not required by law. Electronically signed by: Matt Newberry M.D. 08/15/2025 12:25 PM
--- NOTE | 2025-08-15 12:41 | Orthopedic Progress Note ---
Date of Service August 15, 2025 Assessment & Plan Admission and Anticipated Discharge Date Admission Date: August 15, 2025 Orthopedic Progress Note Labs from left ankle aspiration reveal Synovial WBC 57,880. 79% PMN's. Positive Monosodium Urate Crystals. Gram Stain negative. Cultures pending results. Labs show an acute gout process, I feel this is contributing to elevated synovial WBC. <90% PMN's is reassuring lower likelihood of superimposed septic arthritis. Patient did receive IV antibiotics before aspiration was performed. At this time would plan to monitor cultures and patient for improvement with medical management of gout. Cannot fully exclude superimposed septic arthritis though lower clinical suspicion at present. I have communicated with Dr. Avila. He is agreeable to assume care orthopedically, he will follow cultures, will sign off patients orthopedic care to him given the recent timing of her left TKA 7 days ago with him.
[2025-08-15] MEDS: ALBUTEROL HFA 8 GM INHALER INH PRN (15:09)
[2025-08-15] MEDS: RIVAROXABAN 20 MG TAB PO SCH (15:11)
--- NOTE | 2025-08-15 17:35 | Orthopedic Consultation ---
Date of Consultation August 15, 2025 Assessment & Plan (1) Status post total left knee replacement: 1 week follow-up left knee replacement. She is doing as expected with regard to her knee replacement. She has no pain and doing well. Continue PT per protocol. Staple removal in 1 week. (2) Ankle pain, left: Left ankle pain related to osteoarthritis and gout with definitive gout diagnosis with negative birefringent crystals noted. The elevated white count ESR and CRP would be expected with acute gout on top of recent surgery. Infection unlikely as patient is still on a cephalosporin orally. Continue appropriate gout treatment and if cultures are negative patient be discharged home when she is comfortable with continued treatment for gout of the ankle. History of Present Illness Reason for Consultation: Recent knee replacement left knee and ankle pain left Attending Physician: Alfredo Walls MD History of Present Illness 70-year-old female who I performed a recent left knee replacement on 1 week ago. She developed low-grade fever ankle pain. Allergies Allergy/AdvReac Type Severity Reaction Status Date / Time adhesive Allergy Mild Rash Verified 08/14/25 23:40 amlodipine AdvReac Intermediate Leg Verified 08/14/25 23:40 swelling gluten AdvReac Intermediate GI Verified 08/14/25 23:40 reactions Home Medications Medication Instructions Recorded Confirmed Type olmesartan 40 mg tablet 40 mg PO QAM 12/05/20 08/14/25 History rivaroxaban 20 mg tablet (Xarelto) 20 mg PO PM 12/05/20 08/14/25 History allopurinol 300 mg tablet 300 mg PO QAM 06/05/25 08/14/25 History cetirizine 10 mg tablet (Zyrtec) 10 mg PO DAILY PRN allergies 06/05/25 08/14/25 History chlorthalidone 25 mg tablet 25 mg PO QAM 06/05/25 08/14/25 History hydralazine 50 mg tablet 50 mg PO BID 06/05/25 08/14/25 History magnesium oxide 400 mg PO HS 06/05/25 08/14/25 History potassium chloride 20 mEq 20 meq PO HS 06/05/25 08/14/25 History tablet,extended release acetaminophen 500 mg tablet 1,000 mg (2 x 500 mg) PO Q8H #90 08/08/25 08/14/25 Rx (Tylenol Extra Strength) tabs cefadroxil 500 mg capsule 500 mg PO Q12H #28 caps 08/08/25 08/14/25 Rx oxycodone 5 mg tablet 5 mg PO Q4H PRN pain #30 tabs 08/08/25 08/14/25 Rx Patient History Medical History History of root canal treatment (07/24/25) had infection after root canal- finished abx yesterday 08/02/25- had last surgery cancelled for this reason Arthritis Hx of gout Acid reflux Hx of squamous cell carcinoma Hx of basal cell carcinoma Atrial fibrillation Taking Xarelto Follows with Dr. Sweet Hypertension Asthma Controlled, No current inhaler Morbid obesity Surgical History History of cholecystectomy History of hysterectomy History of total knee replacement (2016) Right TKA: SAB at L3-4 + regional at [facility] History of colonoscopy History of repair of hiatal hernia S/P Mohs surgery for basal cell carcinoma Chin area History of tooth extraction History of tonsillectomy History of cardiac cath (2013) 2013- [place]- no mi- no stents Status post ablation of atrial fibrillation (2013) [facility] Family History Other No family history of adverse response to anesthesia Social History Smoking Status: Never smoker Second Hand Exposure: No; Do You Dip or Chew Tobacco: No; Hx Alcohol Use: Yes Alcohol type: hard liquor Hx Substance Use: No Preferred Language: Cuban Communication Ability: Effective Supervisor [employer] Required: No Beliefs That Will Affect Care: None Current Living Situation: Spouse Feels Safe at Home: Yes Assistive Devices: Walker Review of Systems Review of Systems: Currently no fever or chills and feels well. Physical Exam Musculoskeletal: Left knee exam demonstrates some typical postoperative swelling with benign healing incision with no drainage and no erythema and with gentle range of motion of the knee no pain. Distal neurological exam circulation sensorimotor exam all intact. Patient can with assistance to a straight leg raise and when I let go she can hold it against gravity temporarily consistent with intact extensor mechanism. Left ankle has an effusion with mild erythema and active passive range of motion now was not significantly painful at this point. Results & Data Vital Signs (Past 12 Hours) Vital Signs Temp Pulse Pulse Resp BP Pulse Ox O2 Del Method 08/15/25 14:00 36.7 C 77 18 106/70 98 Room Air 08/15/25 07:16 74 08/15/25 06:25 81 12 126/74 95 Nasal Cannula O2 Flow Rate 08/15/25 14:00 08/15/25 07:16 08/15/25 06:25 3 Diagnostic Findings X-rays left knee demonstrate well aligned well-fixed total knee replacement with some residual air pockets within the joint which would not be unusual at this point postop it is improved from prior x-rays. This is consistent with typical postop x-rays 1 week out. Left ankle demonstrates osteoarthritis of the ankle joint with inversion of the talus with moderately severe osteoarthritis. Ultrasound negative for DVT. (2) Ankle pain, left Chronicity: acute Qualified Code(s): M25.572 - Pain in left ankle and joints of left foot
[2025-08-15] MEDS ORDERED: VANCOMYCIN HCL 1,500 MG in SODIUM CHLORIDE 0.9% 500 ML IV SCH (18:00)
--- NOTE | 2025-08-15 18:16 | Electrocardiogram Report ---
Test Reason : Blood Pressure : */* mmHG Vent. Rate : 86 BPM Atrial Rate : 86 BPM P-R Int : 196 ms QRS Dur : 92 ms QT Int : 366 ms P-R-T Axes : 38 33 25 degrees QTcB Int : 437 ms Normal sinus rhythm Normal ECG When compared with ECG of 19-Oct-2023 21:10, No significant change was found Confirmed by Oh Tatum ([id number]) on 08/15/2025 6:16:39 PM Referred By: REFERRED SELF Confirmed By: Oh Tatum
[2025-08-15] MEDS: NAPROXEN 250 MG TAB PO SCH (21:44)
[2025-08-15] MEDS: POTASSIUM CHLORIDE CRTAB 20 MEQ TABCR PO SCH (21:44)
[2025-08-16] MEDS ORDERED: cefTRIAXone SODIUM 1,000 MG/50 ML BAG IV SCH (07:00)
[2025-08-16] MEDS ORDERED: cefTRIAXone SODIUM 2,000 MG/50 ML BAG IV SCH (07:00)
[2025-08-16 07:34] VITALS: BP 164/102; PULSE 72; RESP 18; TEMP 97.5; O2SAT 94
--- NOTE | 2025-08-16 07:49 | Orthopedic Progress Note ---
Date of Service August 16, 2025 Assessment & Plan (1) Status post total left knee replacement: Plan: No change in plan with regard to knee. 1 week follow-up left knee replacement. She is doing as expected with regard to her knee replacement. She has no pain and doing well. Continue PT per protocol. Staple removal in 1 week. (2) Ankle pain, left: Plan: Patient may feel better with little support like an Ruben wrap or an ankle brace during ambulation so I placed an Ruben wrap on her ankle today. Ice ankle for pain and swelling relief. Left ankle pain related to osteoarthritis and gout with definitive gout diagnosis with negative birefringent crystals noted. The elevated white count ESR and CRP would be expected with acute gout on top of recent surgery. Infection unlikely as patient is still on a cephalosporin orally. Continue appropriate gout treatment and if cultures are negative patient be discharged home when she is comfortable with continued treatment for gout of the ankle. Admission and Anticipated Discharge Date Admission Date: August 15, 2025 Subjective Still having some pain when she walks. Not much improvement since yesterday. Review of Systems Review of Systems: No fever or chills and her knee feels fine Physical Exam Musculoskeletal: Still some swelling and tenderness of the ankle no severe pain with range of motion. Knee is nonpainful and no signs of infection in the knee no drainage or erythema. Results & Data Vital Signs (Past 12 Hours) Vital Signs Temp Pulse Resp BP Pulse Ox O2 Del Method 08/16/25 07:33 36.4 C L 72 18 164/102 H 94 Room Air 08/15/25 23:03 36.8 C 83 17 124/80 95 Room Air Diagnostic Findings Cultures pending (2) Ankle pain, left Chronicity: acute Qualified Code(s): M25.572 - Pain in left ankle and joints of left foot
[2025-08-16 08:52] LABS: Hematocrit (blood only) 34.0 % (37.0-47.0); Hemoglobin 10.9 g/dl (12.0-16.0); Mean Corpuscular Hemoglobin 29.5 pg (25.0-34.0); Mean Corpuscular Volume 91.9 fL (80.0-100.0); Platelet Count 242 K/uL (130-400); RDW Standard Deviation 48.2 fL (36.4-46.3); Red Blood Count 3.70 M/uL (4.20-5.40); White Blood Count 7.78 K/ul (4.8-10.8)
[2025-08-16 09:08] LABS: Anion Gap 5.0 (3-11); Blood Urea Nitrogen 12.0 mg/dl (6-23); Calcium 9.8 mg/dl (8.6-10.3); Carbon Dioxide 36.0 mmol/L (21-32); Chloride 94.0 mmol/L (98-107); Creatinine Clr Calc Pharmacy 66.5 ml/min; Glucose 162.0 mg/dl (70-99(Fasting)); Potassium 3.4 mmol/L (3.5-5.1); Sodium 135.0 mmol/L (136-145)
--- NOTE | 2025-08-16 13:49 | Discharge Summary ---
Discharge Summary Date of Service August 16, 2025 Principal Dx & Hospital Course #1 = Principal Diagnosis (1) Ankle pain, left: (2) Fever: (3) Status post total left knee replacement: (4) Paroxysmal atrial fibrillation: (5) Hypertension: (6) Acid reflux: Plan Shivani Mishra is a 70 year old female admitted to [facility] from August 15 - 2024 due to left ankle pain and swelling. Joint aspiration was positive for gout and gram stain was negative. Cultures are still pending at time of discharge but low suspicion this is infectious. She will continue on her usual post operative cefadroxil. Gout treated with naproxen and colchicine. Her pain improved on these in the hospital and walking around adequately for discharge. She should continue colchicine until 24-48 hours after symptoms resolve and use naproxen as needed for pain. Notes For Next Care Provider Follow up orthopedics Consider alternative to chlorthalidone for hypertension due to gout Medication Changes From Visit Naproxen and colchicine for gout treatment Admission HPI Per Admitting Provider Shivani Mishra is a pleasant 70yo female with history of HTN, Atrial Fibrillation on Xarelto anticoagulation and well controlled asthma presenting with acute progressive pain of the left ankle and dorsum of the left foot. Patient had a left TKA performed by Dr. Avila on 08/08/25. The surgery was well tolerated with no complications. She was discharged home on 08/09/25 with Oxycodone and Cefadroxil. Patient presents this evening with severe, throbbing pain in her left ankle as well as the dorsum of the left foot. She denies falls or trauma. No new mara twear or strain. Pain very severe - patient unable to ambulate. Her set up a bedside commode to help her. This evening patient did have a syncopal event while transferring to the commode. She denies chest pain, SOB. She has minimal pain in the left knee. No redness, drainage or dehiscence. [place] are still in place. Some mild nausea and chills today otherwise with no complaints. EMS noted an elevated temperature at 100 degrees today. In the ER she is afebrile, HD stable, NAD ER Course: NSS x 500mL Vancomycin Cefepime Discharge Exam Musculoskeletal Improved movement of left ankle Discharge Plan Discharge Items Patient Disposition: Home - Home Health Services Reason For Visit: LEFT ANKLE PAIN, FEVER, RECENT SURGERY Discharge Diagnosis: Left ankle gout Condition on Discharge: Fair Activity: Resume your previous activity Non-emergency contact: Surgeon Call non-emergency contact if: you have any medication questions and your symptoms worsen Follow-up/Referrals: Gabe Avila MD [Surgeon] - (Follow up gout and knee replacement) Julius Koehler MD [Primary Care Provider] - (No routine follow up required) Diet: Heart Healthy Addtl Attending Provider Instructions: You were admitted to [facility] from August 15 - 2024 due to left ankle pain and swelling. Joint aspiration was positive for gout and gram stain was negative. Cultures are still pending at time of discharge but low suspicion this is infectious. Recommend continuing on your usual cefadroxil. We will start naproxen and colchicine. Please continue colchicine until 24-48 hours after symptoms resolve. Use naproxen as needed for pain, this medication along with Xarelto increases your risk of bleeding to take as few doses as needed for pain. Addtl Evaluation Advisor Provider Instructions: Orthopedic Discharge Instructions: You fluid analysis was positive for gout Continue treatment for gout per your medicine team and monitor for any worsening symptoms including increased pain, swelling, fever/chills You can be weight bearing as tolerated on your ankle/foot with walker or other assisted devices Ice as needed Very low suspicion for any infectious process, but we will continue to monitor your cultures Follow up with your orthopedist Dr Avila for continued management You can follow up with Dr Bemran, [facility], as needed Pending Studies at Discharge: No Stand-Alone Forms: My [facility], Smoking Cessation Medications and DC Order Prescriptions: New naproxen 250 mg tablet 250 mg PO BID PRN (Reason: pain) Qty: 30 0RF colchicine [Colcrys] 0.6 mg tablet 0.6 mg PO BID 14 Days Qty: 28 0RF Continued olmesartan 40 mg tablet 40 mg PO QAM Xarelto 20 mg tablet 20 mg PO PM cetirizine [Zyrtec] 10 mg Tablet 10 mg PO DAILY PRN (Reason: allergies) chlorthalidone 25 mg Tablet 25 mg PO QAM allopurinol 300 mg Tablet 300 mg PO QAM hydralazine 50 mg Tablet 50 mg PO BID magnesium oxide 400 mg magnesium Capsule 400 mg PO HS potassium chloride 20 mEq Tablet Extended Release 20 meq PO HS cefadroxil 500 mg capsule 500 mg PO Q12H Qty: 28 0RF Rx Instructions: STARTED 08/10/25 FOR 14 DAYS oxycodone 5 mg tablet 5 mg PO Q4H PRN (Reason: pain) Qty: 30 0RF acetaminophen [Tylenol Extra Strength] 500 mg tablet 1,000 mg PO Q8H Qty: 90 0RF Krames/Other Patient Handouts: Naproxen Oral Tablet, Colchicine Oral Tablet, ED Gout Admission Data Admit Date/Time: 08/15/25 01:17 Attending Provider: Alfredo Walls. Admit Provider: Lucy Roman Primary Care Provider: Julius Koehler Other Providers: Cristo Berman; Lucy Roman; Gabe Avila; [facility] Other Interventions: Discharge Summary Assessment (RN) Last Done: 08/16/25 13:53 Hospital Stay Data Consultations 08/14/25 23:46 Consult Orthopedic Surgery Routine 08/15/25 00:29 ED Decision to Admit Stat 08/15/25 13:29 Consult Orthopedic Surgery Routine Diagnostic Imagining Performed 08/14/25 21:44 US venous doppler LE LT Stat Pending Results Patient Have Any Pending Studies at Discharge: No Discharge Instructions Given to Patient (Per Discharging Provider) You were admitted to [facility] from August 15 - 2024 due to left ankle pain and swelling. Joint aspiration was positive for gout and gram stain was negative. Cultures are still pending at time of discharge but low suspicion this is infectious. Recommend continuing on your usual cefadroxil. We will start naproxen and colchicine. Please continue colchicine until 24-48 hours after symptoms resolve. Use naproxen as needed for pain, this medication along with Xarelto increases your risk of bleeding to take as few doses as needed for pain. Total Time Total Time Spent Total Time Spent (In Minutes): 35 Coding Level of Care Code 09265 INP/OBS DISCH >30 MIN Diagnoses Acute left ankle pain M25.572 Chronicity: acute Fever R50.9 Fever type: unspecified Status post total left knee replacement Z96.652 Paroxysmal atrial fibrillation I48.0 Hypertension I10 Acid reflux K21.9
== END 2025-08-16 14:37 | disposition home health service (06) ==
LOC: EDINP 21:13 → ED 21:13 → SUATTDRO 08-15 01:17 → 3N 08-15 03:18